=== PATIENT | female | born 1965 | race Caucasian/White ===

== ENCOUNTER 2017-03-16 11:58 | Inpatient (IN) | payer OTHER ==
[~2017-03-16] VITALS: Ht 160 cm; Wt 80.0 kg
[~2017-03-16 11:58] MED LIST: CLON1TAB3 PO; DIME240C2 PO; IBUP-1542 PO
[2017-03-16] MEDS ORDERED: SOD CHLORIDE 0.9% 500 ML IV STA (12:28)
[2017-03-16 13:35] LABS: ABNORMAL IP MESSAGE 1; HEMATOCRIT 23.8 % (37.0-47.0); MEAN CORPUSCULAR HEMOGLOBIN 18.7 pg (29.0-33.0); MEAN CORPUSCULAR HGB CONC 27.7 g/dl (32.0-37.0); MEAN CORPUSCULAR VOLUME 67.4 fl (82.0-101.0); MEAN PLATELET VOLUME 10.5 fl (7.4-10.4); PLATELET COUNT 464 10^3/UL (140-415); RED BLOOD COUNT 3.53 10^6/ul (4.20-5.40); WHITE BLOOD COUNT 6.7 10^3/ul (4.8-10.8)
[2017-03-16 13:47] LABS: HEMOGLOBIN 6.6 g/dl (12.0-16.0); POSITIVE DIFF @See below
[2017-03-16 13:49] LABS: INR 1.13; PROTIME 14.5 Sec (12.2-14.2); PT RATIO 1.1
[2017-03-16 13:50] LABS: PARTIAL THROMBOPLASTIN TIME 28.5 Sec (25.0-35.0)
--- NOTE | 2017-03-16 13:52 | RADRPT ---
PROCEDURE: XR Chest. CLINICAL INDICATION: Dyspnea . Upper GI bleed. TECHNIQUE: Single frontal chest x-ray. COMPARISON: None. FINDINGS: The lungs are clear of acute infiltrates, edema, effusions, or masses.. The cardiomediastinal silho uette is unremarkable. The osseous structures are intact. IMPRESSION: No acute cardiopulmonary disease. RPTAT: GG .Ren Talbert MD, Date Time Electronically viewed and signed by .Ren Talbert MD, on 03/16/2017 13:51 .L/
[2017-03-16 13:55] LABS: ALANINE AMINOTRANSFERASE 25 IU/L (13-69); ALBUMIN 4.2 g/dl (3.3-4.9); ALBUMIN/GLOBULIN RATIO 1.31; ALKALINE PHOSPHATASE 41 IU/L (42-121); ANION GAP 12 (8-16); ASPARTATE AMINO TRANSFERASE 12 IU/L (15-46); BLOOD UREA NITROGEN 20 mg/dl (7-20); CARBON DIOXIDE 25 mmol/L (21-31); CHLORIDE 108 mmol/L (97-110); CREATININE 0.65 mg/dl (0.44-1.00); GLUCOSE 125 mg/dl (70-220); POTASSIUM 3.9 mmol/L (3.5-5.1); SODIUM 141 mmol/L (135-144); TOTAL PROTEIN 7.4 g/dl (6.1-8.1)
[2017-03-16] MEDS ORDERED: APIX5TAB PO (13:56)
[2017-03-16 14:08] LABS: TROPONIN-I < 0.012 ng/ml (0.00-0.12)
--- NOTE | 2017-03-16 14:15 | ERD ---
ER Documentation Chief Complaint Date/Time DATE: 03/16/17 TIME: 14:12 Chief Complaint sent from MD for eval abnormal labs Hx of MS HPI 51-year-old woman referred here by PMD for anemia, blood work taken last week revealed hemoglobin just under 7. Patient states she has had melena intermittently for the last 1-2 weeks but denies previous episodes. She denies abdominal pain, no hematemesis, no fevers or chills, no chest pain or shortness of breath, no loss of consciousness. Patient has a history of multiple sclerosis and has upper and lower extremity paresis and has been unable to ambulate for a few years. ROS All systems reviewed and are negative except as per history of present illness. Medications Home Meds Reported Medications Apixaban* (Eliquis*) 5 Mg Tablet, 5 MG PO BID, TAB 03/16/17 Ibuprofen* (Motrin*) 600 Mg Tab, 600 MG PO BID Y for PAIN, TAB 01/13/16 Clonazepam* (Clonazepam*) 1 Mg Tablet, 1 MG PO TID Y for ANXIETY, TAB 01/13/16 Dimethyl Fumarate (Tecfidera) 240 Mg Capsule.dr, 240 MG PO BID, CAP 01/13/16 Allergies Allergies: Coded Allergies: No Known Allergy (Unverified , 03/16/17) PMhx/Soc Multiple sclerosis with bilateral upper and lower extremity paresis, bedbound state, functional paralysis, seizure disorder, history of kidney stone, cholelithiasis, fibroid, anemia History of Surgery: No Anesthesia Reaction: No Hx Neurological Disorder: Yes (MS) Hx Respiratory Disorders: No Hx Cardiac Disorders: No Hx Psychiatric Problems: No Hx Miscellaneous Medical Probl: Yes (MS x 7 years, seizure, KIDNEY STONES ) Hx Alcohol Use: No Hx Substance Use: No Hx Tobacco Use: No Smoking Status: Never smoker FmHx Family History: No diabetes Physical Exam Vitals Vital Signs Date Time Temp Pulse Resp B/P Pulse Ox O2 Delivery O2 Flow Rate FiO2 03/16/17 12:11 99.4 94 20 105/58 100 Physical Exam GENERAL: Well-developed, well-nourished, dehydrated, afebrile HEENT: Dry mucous membranes, pink conjunctiva, no cervical spine tenderness or step-off deformities, no goiter, no jaundice or icterus, extraocular movements intact without pain. No submandibular induration, and no pharyngeal erythema NEURO: Alert and oriented 3, cranial nerves II through XII intact bilaterally, pupils equal round reactive to light, no focal deficits or facial asymmetry, bilateral upper and lower extremity paresis CARDIAC: Regular rate and rhythm, no murmurs rubs or gallops LUNGS: Clear bilaterally no wheezing crackles or stridor ABDOMEN: Soft nontender, no guarding, no rigidity, no rebound, no psoas sign no obturator sign. Normoactive bowel sounds SKIN: Warm and dry to touch, no abrasions, contusions, or hematomas, no lacerations, no ecchymosis, no target lesions, and without ulcers EXTREMITIES: No clubbing cyanosis or edema, diffuse muscular flaccidity and wasting (early stages) PSYCH: Normal affect without agitation or irritability Result Diagram: 03/16/17 1312 03/16/17 1312 Results 24 hrs Laboratory Tests Test 03/16/17 13:12 White Blood Count 6.710^3/ul Red Blood Count 3.5310^6/ul Hemoglobin 6.6g/dl Hematocrit 23.8% Mean Corpuscular Volume 67.4fl Mean Corpuscular Hemoglobin 18.7pg Mean Corpuscular Hemoglobin Concent 27.7g/dl Red Cell Distribution Width 17.0% Platelet Count 57511^3/UL Mean Platelet Volume 10.5fl Neutrophils % % Segmented Neutrophils % (Manual) 73% Lymphocytes % % Lymphocytes % (Manual) 19% Monocytes % % Monocytes % (Manual) 5% Eosinophils % % Eosinophils % (Manual) 3% Basophils % % Nucleated Red Blood Cells % 0.0/100WBC Neutrophils # 10^3/ul Absolute Lymphocytes (Manual) 1.210^3/ul Lymphocytes # 10^3/ul Monocytes # 10^3/ul Absolute Monocytes (Manual) 0.310^3/ul Eosinophils # 10^3/ul Basophils # 10^3/ul Nucleated Red Blood Cells # 10^3/ul Platelet Estimate NORMAL Polychromasia 3+ Hypochromasia 2+ Poikilocytosis 1+ Anisocytosis 2+ Microcytosis 2+ Prothrombin Time 14.5Sec Prothrombin Time Ratio 1.1 INR International Normalized Ratio 1.13 Activated Partial Thromboplast Time 28.5Sec Sodium Level 141mmol/L Potassium Level 3.9mmol/L Chloride Level 108mmol/L Carbon Dioxide Level 25mmol/L Anion Gap 12 Blood Urea Nitrogen 20mg/dl Creatinine 0.65mg/dl Glucose Level 125mg/dl Calcium Level 9.0mg/dl Total Bilirubin 0.0mg/dl Direct Bilirubin 0.00mg/dl Indirect Bilirubin 0.0mg/dl Aspartate Amino Transf (AST/SGOT) 12IU/L Alanine Aminotransferase (ALT/SGPT) 25IU/L Alkaline Phosphatase 41IU/L Troponin I < 0.012ng/ml Total Protein 7.4g/dl Albumin 4.2g/dl Globulin 3.20g/dl Albumin/Globulin Ratio 1.31 Lipase 72U/L Current Medications Medications (Trade) Dose Ordered Sig/Coretta Route PRN Reason Start Time Stop Time Status Last Admin Dose Admin Sodium Chloride (NS) 500 ml @ 500 mls/hr Q1H STAT IV 03/16/17 12:28 03/16/17 13:27 DC 03/16/17 12:28 Procedures/MDM IV line was established patient was placed on residential monitor rhythm strip revealed a sinus rhythm at about 80 bpm with upright P and T waves. Patient was afebrile. EKG performed, read by me: 86 bpm, normal sinus rhythm, normal axis, no acute ST segment changes, narrow QRS complex, with good R-wave progression in precordial leads. I administered 500 cc normal saline intravenously for dehydration. CBC revealed anemia with hemoglobin of 6.6, electrolytes are unremarkable, liver function tests normal, troponin was negative, coagulation profile was normal. Transfusion 2 units PRBCs IV over 4 hours was administered for anemia. Patient admitted to [facility] for continued medical management and IV transfusion Departure Diagnosis: Primary Impression: Symptomatic anemia Additional Impressions: Multiple sclerosis Functional neurological symptom disorder with weakness or paralysis Gastritis and gastroduodenitis with hemorrhage Condition: ANURAG Collado MD Mar 16, 2017 14:15
[2017-03-16 14:32] LABS: ANISOCYTOSIS 2+ (0-0); EOSINOPHILS % (M) 3 % (0-7); HYPOCHROMASIA 2+ (0-0); MICROCYTOSIS 2+ (0-0); MONOCYTES % (M) 5 % (0-11); PLATELET ESTIMATE NORMAL; POIKILOCYTOSIS 1+ (0-0); POLYCHROMASIA 3+ (0-0)
[2017-03-16 17:11] VITALS: TEMP 98.4
[2017-03-16 17:34] VITALS: BP 103/52; RESP 18
[2017-03-16 19:36] VITALS: BP 113/57; RESP 20
[2017-03-16] MEDS ORDERED: PENDING SANTYL ORDER FOR WOUND CARE XX PRN (20:00)
[2017-03-16] MEDS ORDERED: clonAZEPAM 0.5 MG TAB PO PRN (21:30)
[2017-03-16] MEDS ORDERED: IBUPROFEN 600 MG TAB PO PRN (21:30)
[2017-03-16 23:12] VITALS: Ht 160 cm; Wt 80.0 kg
[2017-03-17 00:40] LABS: ADD UMIC NO; UR ASCORBIC ACID NEGATIVE (NEGATIVE); UR BILIRUBIN (Dip) NEGATIVE (NEGATIVE); UR BLOOD (Dip) NEGATIVE (NEGATIVE); UR CLARITY CLEAR (CLEAR); UR COLOR YELLOW (YELLOW); UR GLUCOSE (Dip) NEGATIVE (NEGATIVE); UR KETONES (Dip) NEGATIVE (NEGATIVE); UR LEUKOCYTE ESTERASE (Dip) NEGATIVE Leu/ul (NEGATIVE); UR NITRITE (Dip) NEGATIVE (NEGATIVE); UR SPECIFIC GRAVITY (Dip) 1.019 (1.003-1.030); UR TOTAL PROTEIN (Dip) NEGATIVE (NEGATIVE); UR UROBILINOGEN (Dip) NEGATIVE (NEGATIVE)
[2017-03-17 01:21] VITALS: BP 99/57; RESP 20
--- NOTE | 2017-03-17 05:26 | HP ---
Date/Time of Note Date/Time of Note DATE: 03/17/17 TIME: 05:17 Assessment/Plan VTE Prophylaxis VTE Prophylaxis Intervention: SCD's Lines/Catheters [facility] Saline Lock Urinary Cath still in place: No Assessment/Plan Assessment/Plan 1. GI bleed, most likely upper -PPI -GI consult -Will obviously hold her Eliquis and ibuprofen 2. Severe microcytic anemia, secondary to above -Patient has been started on a blood transfusion in the ER -will check iron profile and ferritin even though not going to be accurate given she is already getting blood transfusion -Check FOBT -GI consult 3. Lower extremity DVT, diagnosed in 2016 -Hold Eliquis given GI bleed and anemia -Will order lower extremity venous study to evaluate for resolution or persistence of DVT -Given the patient has been pretty much none ambulatory from her severe MS, and now with GI bleed and a severe anemia, I believe she benefits from placement of IVC filter since she is at risk for future DVT and now inability to be placed on anticoagulation 4. Multiple sclerosis -Continue Tecfidera -Physical therapy eval HPI/ROS Admit Date/Time Admit Date/Time Mar 16, 2017 at 16:11 Hx of Present Illness This is a 51-year-old female with a history of multiple sclerosis, asthma, lower extremity DVT diagnosed in 2016 who was brought to the ER after she was told she has low hemoglobin. Labs from a few days ago showed a hemoglobin of 7 and as such as she was told to come to ER. She said for almost 2 weeks she has been noticing melanotic stools. She denied hematemesis. She is on Eliquis for DVT and that she has been taking ibuprofen as needed for pain. She has severe MS and she pretty much has been bedridden. PMH/Family/Social Social History Smoking Status: Never smoker Exam/Review of Systems Vital Signs Vitals Vital Signs Date Time Temp Pulse Resp B/P Pulse Ox O2 Delivery O2 Flow Rate FiO2 03/17/17 01:21 98.1 89 20 99/57 98 03/16/17 17:11 Room Air Intake and Output 03/16/17 03/16/17 03/17/17 15:00 23:00 07:00 Intake Total 700 ml Balance 700 ml Exam Constitutional: alert, oriented Head: atraumatic, normocephalic Eyes: PERRL Respiratory: clear to auscultation, normal air movement Cardiovascular: nl pulses, regular rate and rhythm Gastrointestinal: non-tender, soft Extremities: normal pulses Neurological: other (Upper and lower extremity weakness) Labs Result Diagram: 03/16/17 1312 03/16/17 1312 Medications Medications Current Medications [facility]isc[facility] This patient booth... PRN PRN XX WOUND CARE; Start 03/16/17 at 20:00 Influenza Virus Vaccine (Fluzone) 0.5 ml ONCE ONCE IM* ; Start 03/17/17 at 09:00 ; Stop 03/17/17 at 09:01 Clonazepam (Klonopin) 1 mg TID PRN PO ANXIETY; Start 03/16/17 at 21:30 Ibuprofen (Motrin) 600 mg Q6H PRN PO FOR PAIN; Start 03/16/17 at 21:30 Non-Formulary Medication 1 ea BID PO ; Start 03/17/17 at 09:00; Status UNV Apixaban (Eliquis) 5 mg BID PO ; Start 03/17/17 at 09:00 CLEO FARRIS MD Mar 17, 2017 05:26
[2017-03-17] MEDS ORDERED: ACETAMINOPHEN 325 MG TAB PO PRN (05:30)
[2017-03-17 06:01] LABS: BASOPHILS % 0.4 % (0.0-2.0); EOSINOPHILS # 0.2 10^3/ul (0.0-0.5); EOSINOPHILS % 2.5 % (0.0-7.0); HEMOGLOBIN 9.2 g/dl (12.0-16.0); LYMPHOCYTES # 1.3 10^3/ul (0.8-2.9); LYMPHOCYTES % 19.2 % (15.0-51.0); MEAN CORPUSCULAR HEMOGLOBIN 22.4 pg (29.0-33.0); MEAN CORPUSCULAR HGB CONC 30.7 g/dl (32.0-37.0); MEAN PLATELET VOLUME 10.2 fl (7.4-10.4); MONOCYTE # 0.8 10^3/ul (0.3-0.9); MONOCYTES % 11.1 % (0.0-11.0); NEUTROPHIL # 4.5 10^3/ul (1.6-7.5); NEUTROPHILS % 66.4 % (39.0-77.0); PLATELET COUNT 362 10^3/UL (140-415); RED BLOOD COUNT 4.11 10^6/ul (4.20-5.40); RED CELL DISTRIBUTION WIDTH 20.7 % (11.5-14.5); WHITE BLOOD COUNT 6.8 10^3/ul (4.8-10.8)
[2017-03-17 06:18] LABS: IRON 103 ug/dl (35-150)
[2017-03-17 06:25] LABS: ALBUMIN 3.2 g/dl (3.3-4.9); BILIRUBIN,INDIRECT 0.4 mg/dl (0-1.1); BILIRUBIN,TOTAL 0.4 mg/dl (0.2-1.3); CALCIUM 8.6 mg/dl (8.4-10.2); CREATININE 0.54 mg/dl (0.44-1.00); POTASSIUM 3.8 mmol/L (3.5-5.1); TOTAL PROTEIN 6.4 g/dl (6.1-8.1)
[2017-03-17 06:27] LABS: TOTAL IRON BINDING CAPACITY 316 ug/dl (241-421)
[2017-03-17 06:55] LABS: FERRITIN 4.8 ng/ml (6.2-137.0)
[2017-03-17 08:00] VITALS: BP 114/67; RESP 18
[2017-03-17] MEDS ORDERED: INFLUENZA VIRUS VACCINE 0.5 ML SYG IM* ONE (09:00)
[2017-03-17] MEDS ORDERED: APIXABAN 5 MG TABLET PO SCH (09:00)
--- NOTE | 2017-03-17 13:38 | PN ---
Date/Time of Note Date/Time of Note DATE: 03/17/17 TIME: 13:32 Assessment/Plan VTE Prophylaxis VTE Prophylaxis Intervention: contraindicated Lines/Catheters [facility] Saline Lock Urinary Cath still in place: No Assessment/Plan Chief Complaint/Hosp Course Assessment and plan 1. Anemia secondary to suspect GI bleed. Continue PPI medication. Napper Fixer was consulted. Patient was initially on Eliquis for her previous lower extremity DVT diagnosed in 2016. Will place this on hold for now. Follow up with urologist md recs 2. Severe microcytic anemia secondary to #1. Patient status post blood transfusion. H&H remained stable at present. Napper Fixer to follow. Monitor level. 3. Lower extremity DVT diagnosed in 2016. Patient was initially on Eliquis but given her anemia we will hold this for now. Will get vascular surgeon to follow for consideration of possible IVC filter placement. 4. History of multiple sclerosis. Will continue patient on Tecfidera medication. Turn every 2 and as needed for decubitus ulcer prevention. Disposition plan: Awaiting health management consultant evaluation. Continue house monitoring. Monitor serial H&H. Discussed plan of care with Dr. Mena Problems: Subjective 24 Hr Interval Summary Free Text/Dictation Report the pain at this time. No other specific complaints. Exam/Review of Systems Vital Signs Vitals Vital Signs Date Time Temp Pulse Resp B/P Pulse Ox O2 Delivery O2 Flow Rate FiO2 03/17/17 08:00 98.6 74 18 114/67 03/17/17 01:21 98 03/16/17 17:11 Room Air Intake and Output 03/16/17 03/16/17 03/17/17 15:00 23:00 07:00 Intake Total 1700 ml Balance 1700 ml Exam Constitutional: alert, oriented Psych: nl mood/affect Head: normocephalic Respiratory: normal air movement Cardiovascular: regular rate and rhythm Gastrointestinal: non-tender, soft Musculoskeletal: No nl gait and stance (hx multiple sclerosis ) Neurological: nl mental status, nl speech, No COUNTER SERVER II-XII intact Results Result Diagram: 03/17/17 0543 03/17/17 0543 Results 24 hrs Laboratory Tests Test 03/16/17 21:00 03/17/17 05:43 Urine Color YELLOW Urine Clarity CLEAR Urine pH 6.0 Urine Specific [place] 1.019 Urine Ketones NEGATIVE Urine Nitrite NEGATIVE Urine Bilirubin NEGATIVE Urine Urobilinogen NEGATIVE Urine Leukocyte Esterase NEGATIVE Urine Hemoglobin NEGATIVE Urine Glucose NEGATIVE Urine Total Protein NEGATIVE White Blood Count 6.8 Red Blood Count 4.11 L Hemoglobin 9.2 #L Hematocrit 30.0 #L Mean Corpuscular Volume 73.0 L Mean Corpuscular Hemoglobin 22.4 L Mean Corpuscular Hemoglobin Concent 30.7 L Red Cell Distribution Width 20.7 #H Platelet Count 362 # Mean Platelet Volume 10.2 Neutrophils % 66.4 Lymphocytes % 19.2 Monocytes % 11.1 H Eosinophils % 2.5 Basophils % 0.4 Nucleated Red Blood Cells % 0.0 Neutrophils # 4.5 Lymphocytes # 1.3 Monocytes # 0.8 Eosinophils # 0.2 Basophils # 0.0 Nucleated Red Blood Cells # 0.0 Sodium Level 139 Potassium Level 3.8 Chloride Level 110 Carbon Dioxide Level 23 Anion Gap 10 Blood Urea Nitrogen 23 H Creatinine 0.54 Glucose Level 112 Calcium Level 8.6 Iron Level 103 Total Iron Binding Capacity 316 Percent Iron Saturation 33 Ferritin 4.8 L Total Bilirubin 0.4 Direct Bilirubin 0.00 Indirect Bilirubin 0.4 Aspartate Amino Transf (AST/SGOT) 14 L Alanine Aminotransferase (ALT/SGPT) 21 Alkaline Phosphatase 38 L Total Protein 6.4 # Albumin 3.2 #L Globulin 3.20 Albumin/Globulin Ratio 1.00 Medications Medications Current Medications Miscellaneous Information (Pending [facility] Order For Wound Care) This patient booth... PRN PRN XX WOUND CARE; Start 03/16/17 at 20:00 Clonazepam (Klonopin) 1 mg TID PRN PO ANXIETY; Start 03/16/17 at 21:30 Patient Own Medication 1 ea BID PO ; Start 03/17/17 at 21:00 Acetaminophen (Tylenol Tab) 650 mg Q6H PRN PO PAIN AND OR ELEVATED TEMP; Start 03/17/17 at 05:30 BROOKE STEINBERG Mar 17, 2017 13:38
[2017-03-17 14:00] VITALS: BP 113/56; RESP 18
[2017-03-17 20:00] VITALS: BP 120/64; RESP 20
[2017-03-17] MEDS: TECFIDERA 240 MG PO SCH (20:52)
[2017-03-18 02:00] VITALS: BP 91/53; RESP 18
[2017-03-18 06:57] LABS: BASOPHILS % 0.3 % (0.0-2.0); EOSINOPHILS # 0.2 10^3/ul (0.0-0.5); EOSINOPHILS % 2.2 % (0.0-7.0); HEMATOCRIT 30.4 % (37.0-47.0); HEMOGLOBIN 9.5 g/dl (12.0-16.0); LYMPHOCYTES # 1.5 10^3/ul (0.8-2.9); LYMPHOCYTES % 16.3 % (15.0-51.0); MEAN CORPUSCULAR HEMOGLOBIN 22.4 pg (29.0-33.0); MEAN CORPUSCULAR HGB CONC 31.3 g/dl (32.0-37.0); MEAN CORPUSCULAR VOLUME 71.7 fl (82.0-101.0); MONOCYTE # 0.9 10^3/ul (0.3-0.9); MONOCYTES % 9.6 % (0.0-11.0); NEUTROPHIL # 6.3 10^3/ul (1.6-7.5); NEUTROPHILS % 71.3 % (39.0-77.0); PLATELET COUNT 409 10^3/UL (140-415); RED BLOOD COUNT 4.24 10^6/ul (4.20-5.40); RED CELL DISTRIBUTION WIDTH 21.1 % (11.5-14.5); WHITE BLOOD COUNT 8.9 10^3/ul (4.8-10.8)
[2017-03-18 07:26] VITALS: BP 95/51; RESP 20
[2017-03-18 07:39] LABS: CALCIUM 8.7 mg/dl (8.4-10.2); CREATININE 0.51 mg/dl (0.44-1.00); POTASSIUM 3.8 mmol/L (3.5-5.1)
[2017-03-18] MEDS: TECFIDERA 240 MG PO SCH ×2 (08:41→20:58)
--- NOTE | 2017-03-18 12:28 | CONS ---
Date/Time of Note Date/Time of Note DATE: 03/18/17 TIME: 12:22 Assessment/Plan Assessment/Plan Additional Assessment/Plan REASON FOR CONSULTATION (CONS): Anemia HISTORY OF PRESENT ILLNESS 51-year-old female recently diagnosed multiple sclerosis. She was being evaluated at [facility] for initiation of treatment. She was found to have significant anemia. She was referred to her primary doctor who subsequently referred her for hospitalization. From the GI point of view the patient denies any evidence of overt gastrointestinal bleeding i.e. hematemesis, melena or hematochezia. The patient also have very heavy periods in the last 3 months. She had been receiving Eliquis for DVT. At the present time the patient is asymptomatic from the gastrointestinal point of view but has required blood transfusions and given the potential need for anticoagulation as well as her age group she will require benefit from endoscopic evaluation. The patient patient will be scheduled for EGD and colonoscopy. The procedures were explained to the patient in detail including risks, benefits and alternatives. She is agreeable to proceed. REVIEW OF SYSTEMS: []GASTROINTESTINAL AND LIVER: Negative for: Anorexia, dysphagia, odynophagia, pyrosis, regurgitation, nausea, vomiting, early satiety, bloating, abdominal pain, food intolerance, diarrhea, constipation, change in Bowel Habits, laxative use, hematemesis, melena, hematochezia, anorectal symptoms, incontinence, jaundice. GENERAL AND CONSTITUTIONAL: Negative for: Weakness, tiredness, fever, chills, weight loss, weight gain, skin lesions. New mass, adenopathy. HEENT: Negative for: Headaches, vision changes, icterus, hearing loss, dizziness , vertigo, earache, sore throat. CARDIOVASCULAR: Negative for: Chest pain, SOB, CUMMINGS, orthopnea, palpitations, lightheadedness, edemas, claudication. RESPIRATORY: Negative for: SOB, cough, sputum production, hemoptysis, pleuritic chest pain, wheezing. GENITOURINARY: Negative for: Dysuria, hematuria, flank pain, urgency, nocturia, polyuria. MUSCULO-SKELETAL: Negative for: Bone pain, arthralgias, deformity, myalgias. HEMATOLOGIC-LYMPHATIC: Negative for: Echymosis, petechia, excessive bleeding, adenopathy, new mass. NEURO-PSYCHIATRIC: Positive for: Weakness. Negative for: Syncope, seizures, numbness, depression, anxiety, insomnia, hallucinations, delusions. [GYNECOLOGICAL: Positive for menorrhagia. Negative for: irregular menses, dysmenorrheal, dyspareunia] PAST MEDICAL HISTORY: MEDICAL: Multiple sclerosis DVT 2016 SURGICAL: [None] TRANSFUSIONS: This hospitalization TATOOS: [None] HABITS: SMOKING: [Negative] ALCOHOL: [Negative] DRUGS: [Negative] MEDICATION HISTORY: [As noted] ALLERGIES: [No known allergies] FAMILY HISTORY: [Negative for gastrointestinal neoplasm, non contributory] PHYSICAL EXAMINATION: GENERAL: Well developed, well nourished, alert & oriented x 3, in no acute distress SKIN: No lesions, no stigmata chronic liver disease, no evidence of bleeding diathesis LYMPHATIC: No palpable lymphadenopathy. HEAD: Normocephalic, atraumatic, no tenderness. EYES: Pupils equal reactive to light and accommodation, full extraocular movements, sclera clear, non-icteric, no discharge. EARS/NOSE AND THROAT: Ears normal, nose normal, oropharynx normal, oral membranes well hydrated without lesions. NECK: Supple, no masses, thyroid normal, JVP within normal limits, carotids normal without bruits. CHEST: Inspection within normal limits, breasts grossly normal. CARDIOVASCULAR: Heart: Regular rate and rhythm, no murmurs, gallops or rubs. Peripheral pulses present within normal limits, no cyanosis, clubbing or edemas. No pulsatile abdominal mass RESPIRATORY: Lungs clear to auscultation and percussion, no wheezing, no rubs GASTROINTESTINAL AND LIVER: Abdomen: Soft, non tender, non-distended, no hernias , no masses, no organomegaly, no ascites, no guarding, no rebound tenderness, normoactive bowel sounds. Rectal: Deferred GENITOURINARY: [Female genitalia within normal limits.] EXTREMITIES: No cyanosis, clubbing or edema. MUSCULO-SKELETAL: Gait and station within normal limits, range of motion adequate. IMPRESSION: Severe unexplained anemia/while anticoagulated Rule out GI bleeding Menometrorrhagia Multiple sclerosis History of DVT 2016/on Eliquis DISCUSSION & RECOMMENDATIONS: We will proceed with EGD and colonoscopy to rule out GI component to her significant anemia Consider DOT COMPLIANCE MANAGER evaluation for menometrorrhagia Further recommendations pending patient's clinical course as well as findings SIMON canales. Dr. Dumont's [facility] Consultation Date/Type/Reason Admit Date/Time Mar 16, 2017 at 16:11 Psychological: nl mood/affect Social History Smoking Status: Never smoker Exam/Review of Systems Vital Signs Vitals Vital Signs Date Time Temp Pulse Resp B/P Pulse Ox O2 Delivery O2 Flow Rate FiO2 03/18/17 07:26 98.4 78 20 95/51 98 03/16/17 17:11 Room Air Intake and Output 03/17/17 03/17/17 03/18/17 15:00 23:00 07:00 Intake Total 1200 ml 720 ml Balance 1200 ml 720 ml Results Result Diagram: 03/18/17 0514 03/18/17 0514 Results 24 hrs Laboratory Tests Test 03/18/17 05:14 03/18/17 05:58 White Blood Count 8.9 # Red Blood Count 4.24 Hemoglobin 9.5 L Hematocrit 30.4 L Mean Corpuscular Volume 71.7 L Mean Corpuscular Hemoglobin 22.4 L Mean Corpuscular Hemoglobin Concent 31.3 L Red Cell Distribution Width 21.1 H Platelet Count 409 Mean Platelet Volume 11.0 H Neutrophils % 71.3 Lymphocytes % 16.3 Monocytes % 9.6 Eosinophils % 2.2 Basophils % 0.3 Nucleated Red Blood Cells % 0.0 Neutrophils # 6.3 Lymphocytes # 1.5 Monocytes # 0.9 Eosinophils # 0.2 Basophils # 0.0 Nucleated Red Blood Cells # 0.0 Sodium Level 135 Potassium Level 3.8 Chloride Level 106 Carbon Dioxide Level 22 Anion Gap 11 Blood Urea Nitrogen 22 H Creatinine 0.51 Glucose Level 99 Calcium Level 8.7 Lab Scanned Report BLOOD TRANSFUSION Medications Medications Current Medications Miscellaneous Information (Pending [facility] Order For Wound Care) This patient booth... PRN PRN XX WOUND CARE; Start 03/16/17 at 20:00 Clonazepam (Klonopin) 1 mg TID PRN PO ANXIETY Last administered on 03/18/17 08 :51; Admin Dose 1 MG; Start 03/16/17 at 21:30 Patient Own Medication 1 ea BID PO Last administered on 03/18/17 08:41; Admin Dose 1 EA; Start 03/17/17 at 21:00 Acetaminophen (Tylenol Tab) 650 mg Q6H PRN PO PAIN AND OR ELEVATED TEMP; Start 03/17/17 at 05:30 SIMON DUMONT MD Mar 18, 2017 12:28
[2017-03-18] MEDS ORDERED: BISACODYL (EC) 5 MG TAB PO ONE (12:30)
--- NOTE | 2017-03-18 12:56 | PN ---
Date/Time of Note Date/Time of Note DATE: 03/18/17 TIME: 12:54 Assessment/Plan VTE Prophylaxis VTE Prophylaxis Intervention: SCD's Lines/Catheters [facility] Saline Lock Urinary Cath still in place: No Assessment/Plan Chief Complaint/Hosp Course Assessment and plan 1. Anemia secondary to suspect GI bleed. Continue PPI medication. Patient was initially on Eliquis for her previous lower extremity DVT diagnosed in 2016. Will place this on hold for now. GI following. Plan for colonoscopy and EGD . 2. Severe microcytic anemia secondary to #1. Patient status post blood transfusion. H&H remained stable at present. Iron Erector following. Monitor level. 3. Lower extremity DVT diagnosed in 2016. Patient was initially on Eliquis but given her anemia we will hold this for now. vascular surgeon to follow for consideration of possible IVC filter placement. 4. History of multiple sclerosis. Will continue patient on Tecfidera medication. Turn every 2 and as needed for decubitus ulcer prevention. Disposition plan: Plan for EGD and colonoscopy. Vascular surgeon evaluation pending. Continue in-house monitoring Discussed plan of care with Dr. Mena Problems: Subjective 24 Hr Interval Summary Free Text/Dictation No signs or symptoms of distress at this time. No further reports of hematemesis or hematochezia Exam/Review of Systems Vital Signs Vitals Vital Signs Date Time Temp Pulse Resp B/P Pulse Ox O2 Delivery O2 Flow Rate FiO2 03/18/17 07:26 98.4 78 20 95/51 98 03/16/17 17:11 Room Air Intake and Output 03/17/17 03/17/17 03/18/17 15:00 23:00 07:00 Intake Total 1200 ml 720 ml Balance 1200 ml 720 ml Exam Constitutional: alert, oriented Psych: nl mood/affect Head: normocephalic Respiratory: normal air movement Cardiovascular: regular rate and rhythm Gastrointestinal: non-tender, soft Musculoskeletal: No nl gait and stance (hx multiple sclerosis ) Neurological: nl mental status, nl speech, No TANK CAR INSPECTOR II-XII intact Results Result Diagram: 03/18/17 0514 03/18/17 0514 Results 24 hrs Laboratory Tests Test 03/18/17 05:14 03/18/17 05:58 White Blood Count 8.9 # Red Blood Count 4.24 Hemoglobin 9.5 L Hematocrit 30.4 L Mean Corpuscular Volume 71.7 L Mean Corpuscular Hemoglobin 22.4 L Mean Corpuscular Hemoglobin Concent 31.3 L Red Cell Distribution Width 21.1 H Platelet Count 409 Mean Platelet Volume 11.0 H Neutrophils % 71.3 Lymphocytes % 16.3 Monocytes % 9.6 Eosinophils % 2.2 Basophils % 0.3 Nucleated Red Blood Cells % 0.0 Neutrophils # 6.3 Lymphocytes # 1.5 Monocytes # 0.9 Eosinophils # 0.2 Basophils # 0.0 Nucleated Red Blood Cells # 0.0 Sodium Level 135 Potassium Level 3.8 Chloride Level 106 Carbon Dioxide Level 22 Anion Gap 11 Blood Urea Nitrogen 22 H Creatinine 0.51 Glucose Level 99 Calcium Level 8.7 Lab Scanned Report BLOOD TRANSFUSION Medications Medications Current Medications Miscellaneous Information (Pending [facility] Order For Wound Care) This patient booth... PRN PRN XX WOUND CARE; Start 03/16/17 at 20:00 Clonazepam (Klonopin) 1 mg TID PRN PO ANXIETY Last administered on 03/18/17 08 :51; Admin Dose 1 MG; Start 03/16/17 at 21:30 Patient Own Medication 1 ea BID PO Last administered on 03/18/17 08:41; Admin Dose 1 EA; Start 03/17/17 at 21:00 Acetaminophen (Tylenol Tab) 650 mg Q6H PRN PO PAIN AND OR ELEVATED TEMP; Start 03/17/17 at 05:30 Magnesium Citrate (Citroma) 300 ml ONCE ONCE PO ; Start 03/18/17 at 17:30; Stop 03/18/17 at 17:31 Polyethylene Glycol (Miralax) 119 gm ONCE ONCE PO ; Start 03/18/17 at 18:30; Stop 03/18/17 at 18:31 BROOKE STEINBERG Mar 18, 2017 12:56
[2017-03-18 13:02] VITALS: BP 110/57; RESP 20
[2017-03-18] MEDS ORDERED: MAGNESIUM CITRATE 300 ML BTL PO ONE (17:30)
[2017-03-18] MEDS ORDERED: POLYETHYLENE GLYCOL 3350 119 GM POWDER PO ONE (18:30)
[2017-03-18 19:40] VITALS: BP 119/65; RESP 20
[2017-03-19 02:00] VITALS: BP 112/59; RESP 20
[2017-03-19] MEDS ORDERED: POLYETHYLENE GLYCOL 3350 119 GM POWDER PO ONE (06:00)
[2017-03-19 06:24] LABS: ABNORMAL IP MESSAGE 1; BASOPHILS % 0.3 % (0.0-2.0); EOSINOPHILS # 0.2 10^3/ul (0.0-0.5); EOSINOPHILS % 1.5 % (0.0-7.0); HEMATOCRIT 33.7 % (37.0-47.0); LYMPHOCYTES # 1.2 10^3/ul (0.8-2.9); LYMPHOCYTES % 10.8 % (15.0-51.0); MEAN CORPUSCULAR HEMOGLOBIN 21.6 pg (29.0-33.0); MEAN CORPUSCULAR HGB CONC 29.7 g/dl (32.0-37.0); MEAN CORPUSCULAR VOLUME 72.9 fl (82.0-101.0); MEAN PLATELET VOLUME 10.3 fl (7.4-10.4); MONOCYTES % 8.9 % (0.0-11.0); NEUTROPHIL # 8.5 10^3/ul (1.6-7.5); PLATELET COUNT 414 10^3/UL (140-415); RED BLOOD COUNT 4.62 10^6/ul (4.20-5.40); RED CELL DISTRIBUTION WIDTH 22.5 % (11.5-14.5)
[2017-03-19 06:34] LABS: POSITIVE DIFF @See below
[2017-03-19 07:16] LABS: CALCIUM 9.2 mg/dl (8.4-10.2); CREATININE 0.5 mg/dl (0.44-1.00)
[2017-03-19 07:58] VITALS: BP 125/68; RESP 20
[2017-03-19] MEDS ORDERED: BISACODYL (EC) 5 MG TAB PO ONE (08:00)
[2017-03-19] MEDS: TECFIDERA 240 MG PO SCH ×2 (08:46→21:08)
--- NOTE | 2017-03-19 10:13 | PN ---
Date/Time of Note Date/Time of Note DATE: 03/19/17 TIME: 10:12 Assessment/Plan VTE Prophylaxis VTE Prophylaxis Intervention: contraindicated Lines/Catheters IV Catheter Type (from [facility] Urinary Cath still in place: No Assessment/Plan Chief Complaint/Hosp Course 1. Symptomatic anemia. Microcytic and hypochromic rule out gastrointestinal sources. Stool for OB 1 negative. Iron panel showing low ferritin levels. Start iron supplements. Continue proton pump inhibitors. Being followed by gastroenterology. Plan for esophagogastroduodenoscopy and colonoscopy. 2. Prior history of lower extremity DVT with details unclear. The patient has been on factor Xa inhibitors. Currently this is on hold because of underlying anemia. The patient was evaluated by vascular surgeon. Repeat venous Doppler of B/L LE pending. 3. Multiple sclerosis. Continue patient's home medications. Continue supportive care. 4. Fluids, electrolytes, and nutrition. N.p.o. except for medications for procedure. 5. DVT prophylaxis. Contraindicated. 6. Plan. Await esophagogastroduodenoscopy and colonoscopy. Case discussed with Dr. Velázquez. Problems: Subjective 24 Hr Interval Summary Free Text/Dictation Denies any complaints. Exam/Review of Systems Vital Signs Vitals Vital Signs Date Time Temp Pulse Resp B/P Pulse Ox O2 Delivery O2 Flow Rate FiO2 03/19/17 07:58 98.1 77 20 125/68 100 03/16/17 17:11 Room Air Intake and Output 03/18/17 03/18/17 03/19/17 15:00 23:00 07:00 Intake Total 1140 ml 360 ml Output Total 0 ml Balance 1140 ml 360 ml Exam General: Adequately build 51 year-old female lying in bed in no apparent distress. HEENT: Normocephalic, atraumatic. Eyes: Anicteric sclerae, conjunctivae clear. ENT: Nasal septum midline, oral mucosa moist. Neck supple, no JVD noticed. Respiratory: Bilaterally clear breath sounds. No use of accessory muscles of respiration. No adventitious breath sounds. Cardiovascular: S1, S2 heard. No murmurs or gallops. Abdomen: Soft, nontender, and nondistended. Bowel sounds positive in all 4 quadrants. Genitourinary: Deferred. Extremities: No cyanosis, no clubbing, no edema. Peripheral pulses palpable. Neurologic: The patient is awake, alert, and oriented. Skin: Normal skin turgor. No skin rashes. Results Result Diagram: 03/19/1714 03/19/1714 Results 24 hrs Laboratory Tests Test 03/19/17 05:14 White Blood Count 11.0 #H Red Blood Count 4.62 Hemoglobin 10.0 L Hematocrit 33.7 L Mean Corpuscular Volume 72.9 L Mean Corpuscular Hemoglobin 21.6 L Mean Corpuscular Hemoglobin Concent 29.7 L Red Cell Distribution Width 22.5 H Platelet Count 414 Mean Platelet Volume 10.3 Neutrophils % 78.0 H Lymphocytes % 10.8 L Monocytes % 8.9 Eosinophils % 1.5 Basophils % 0.3 Nucleated Red Blood Cells % 0.0 Neutrophils # 8.5 H Lymphocytes # 1.2 Monocytes # 1.0 H Eosinophils # 0.2 Basophils # 0.0 Nucleated Red Blood Cells # 0.0 Sodium Level 139 Potassium Level 4.0 Chloride Level 105 Carbon Dioxide Level 26 Anion Gap 12 Blood Urea Nitrogen 19 Creatinine 0.50 Glucose Level 110 Calcium Level 9.2 Medications Medications Current Medications Miscellaneous Information ([facility] This patient booth... PRN PRN XX WOUND CARE; Start 03/16/17 at 20:00 Clonazepam (Klonopin) 1 mg TID PRN PO ANXIETY Last administered on 03/18/17 08 :51; Admin Dose 1 MG; Start 03/16/17 at 21:30 Patient Own Medication 1 ea BID PO Last administered on 03/18/17 20:58; Admin Dose 1 EA; Start 03/17/17 at 21:00 Acetaminophen (Tylenol Tab) 650 mg Q6H PRN PO PAIN AND OR ELEVATED TEMP Last administered on 03/19/17 02:05; Admin Dose 650 MG; Start 03/17/17 at 05:30 JACK FRIEND NP Mar 19, 2017 10:13
[2017-03-19] MEDS: FERROUS FUMARATE (SR) TAB PO SCH ×2 (12:00→21:07)
[2017-03-19 13:10] VITALS: BP 109/53; RESP 20
--- NOTE | 2017-03-19 15:44 | RADRPT ---
PROCEDURE: US Lower extremity Venous. CLINICAL INDICATION: Bilateral lower extremity edema TECHNIQUE: Multiple sonographic images of the bilateral lower extremity deep venous system was obt ained utilizing grayscale, color-flow, compressive sonography and doppler imaging with augmentation. The images were reviewed on a PACS workstation. COMPARISON: None. FINDINGS: There is normal compressibility and flow within the bilateral common femoral, femoral , posterior ti bial and popliteal veins. RPTAT: AA IMPRESSION: No sonographic evidence for deep venous thrombosis. .Feliciano Kellogg MD, MD Date Time Electronically viewed and signed by .Feliciano Kellogg MD, on 03/19/2017 15:43 .S/
[2017-03-19 16:31] VITALS: BP 104/55; PULSE 82; RESP 24
[2017-03-19] MEDS ORDERED: PROPOFOL 40 ML ONE (17:05)
[2017-03-19] MEDS ORDERED: LIDOCAINE 2% (SDV) 5 ML INJ ONE (17:05)
[2017-03-19] MEDS ORDERED: PHENYLephrine (100 MCG/ML) 5ML SYG ONE (17:20)
--- NOTE | 2017-03-19 17:51 | OPPN ---
Date/Time of Note Date/Time of Note DATE: 03/19/17 TIME: 17:48 Proc Note GI Procedure Date 03/19/17 Pre-procedure Diagnosis * Anemia Post-procedure Diagnosis Impression: * Moderate gastritis. Rule out H. pylori infection. Biopsies obtained * Small hiatal hernia. No evidence of esophagitis. * Otherwise normal EGD Plan: * Protonix 40 mg daily * Review pathology * Proceed with colonoscopy as planned . Procedure Performed: Endoscopy (Plus biopsies) Surgeon SIMON JEFFERSON MD Laborer Powerhouse none Anesthesia Type: MAC Anesthesiologist: ODIN OBRIEN Tourniquet Time none EBL none Transfusion required none Biopsy 1: Gastric body and antrum/rule out H. pylori infection Grafts/Implants none Tubes/Drains none Complication(s) none Pt Condition post procedure: stable Disposition: PACU Indications: other (Anemia) Procedure Description After informed consent, with the patient/relatives understanding the procedure, its indications, potential risks and complications, including but not limited to : allergic reaction, bleeding, perforation or infection, and after all pertinent questions were answered to the patients satisfaction, the patient/ relatives signed witnessed informed consent. Following this, premedication was administered slowly IV push under careful cardiovascular and respiratory monitoring with pulse oximetry, automatic blood pressure, and nuclear power plant engineer. Once the sedative effect was achieved the patient was place in the left lateral decubitus, the panendoscope was introduced and advanced under visual control. Careful examination of the upper gastrointestinal tract, both on insertion as well as withdrawal of the instrument disclosing the following findings: ESOPHAGUS: the mucosa of the entire esophagus was carefully examined and showed the following findings: There is a small hiatal hernia with no evidence of esophagitis. Otherwise the mucosa appears within normal limits. There is no evidence of esophagitis, varices, neoplasm, or stricture. STOMACH: Upon entrance to the stomach air was insufflated, the gastric ross distended normally. The mucosa of the fundus, body and antrum of the stomach was carefully examined both head-on and on retroflexion, and showed the following findings: There is moderate erythema and edema of the mucosa of the body and antrum of the stomach. Biopsies were obtained to rule out H. pylori infection. Otherwise the mucosa appears within normal limits with no abnormalities. There is no evidence of ulcers or neoplasm. PYLORUS: The pylorus was carefully examined and showed the following findings: the pylorus appears patent and within normal limits, with no evidence of gastric outlet obstruction. DUODENUM: The duodenal mucosa was carefully examined in the duodenal bulb as well as the second portion of the duodenum and showed the following findings: the mucosa appears unremarkable with no evidence of duodenitis, ulcer or neoplasm. Copies To: CC: SIMON JEFFERSON MD, MORDO MD Mar 19, 2017 17:51
--- NOTE | 2017-03-19 17:53 | OPPN ---
Date/Time of Note Date/Time of Note DATE: 03/19/17 TIME: 17:51 Proc Note GI Procedure Date 03/19/17 Pre-procedure Diagnosis * Anemia Post-procedure Diagnosis Impression: * Normal colonic mucosa to cecum * Moderate-sized internal hemorrhoids Plan: * Advance diet as tolerated * Annual Hemoccult stool testing * Screening colonoscopy in 10 years Procedure Performed: Colonoscopy Surgeon SIMON JEFFERSON MD Director Fundraising none Anesthesia Type: MAC Anesthesiologist: ODIN OBRIEN Tourniquet Time none EBL none Transfusion required none Biopsy 1: None Grafts/Implants none Tubes/Drains none Complication(s) none Pt Condition post procedure: stable Disposition: PACU Indications: screening/surveillance, other (Anemia) Procedure Description Procedure Date: [] After informed consent, with the patient/relatives understanding the procedure, its indications and potential risks and complications, including but not limited to: Allergic reaction, bleeding, perforation, infection, and after all pertinent questions were answered to the patient's satisfaction, the patient/ relatives signed the witnessed informed consent. Following this, premedication was administered slowly IV push under careful cardiovascular and respiratory monitoring with pulse OXIMETRY, automatic blood pressure, and patient monitor. Once the sedative effect was achieved, the patient was placed in the left lateral decubitus position, digital rectal examination was performed. The colonoscope was then introduced and advanced under visual control throughout all segments of the colon including: []the rectum, sigmoid, descending colon, splenic flexure, transverse colon, hepatic flexure, ascending colon and finally reaching the cecum which was clearly identified by transillumination, finger indentation and the ileocecal valve. Careful examination of the mucosa of the lower gastrointestinal tract both on insertion as well as withdrawal of the instrument disclosed the following findings: PREPARATION QUALITY: , [fair, procedure completed] RECTAL EXAM: The anorectal area was visualized examined and digital rectal examination performed with the following findings: No evidence of perirectal disease, no masses. COLONIC MUCOSA: The mucosa of all segments of the colon was carefully examined and showed the following findings: the examined mucosa appears within normal limits. There is no evidence of inflammatory changes, diverticular formation, polyps or other neoplasms, vascular malformation, or any other abnormality. Moderate-sized internal hemorrhoids present. The instrument was then withdrawn, the patient tolerated the procedure well and was transferred out of the Endoscopy Suite awake and in good condition to continue recovery under observation. Copies To: CC: SIMON JEFFERSON MD, MORDO MD Mar 19, 2017 17:53
[2017-03-19 19:46] VITALS: BP 121/76; RESP 20
[2017-03-19] MEDS ORDERED: LOPERAMIDE 2 MG CAP PO PRN (23:00)
[2017-03-20 02:00] VITALS: BP 112/59; RESP 20
[2017-03-20] MEDS ORDERED: PANTOPRAZOLE (EC) 40 MG TAB PO SCH (06:00)
[2017-03-20 06:12] LABS: ABNORMAL IP MESSAGE 1; BASOPHILS % 0.3 % (0.0-2.0); EOSINOPHILS # 0.2 10^3/ul (0.0-0.5); EOSINOPHILS % 1.7 % (0.0-7.0); HEMATOCRIT 31.6 % (37.0-47.0); HEMOGLOBIN 9.6 g/dl (12.0-16.0); LYMPHOCYTES # 1.1 10^3/ul (0.8-2.9); LYMPHOCYTES % 12.2 % (15.0-51.0); MEAN CORPUSCULAR HEMOGLOBIN 22.3 pg (29.0-33.0); MEAN CORPUSCULAR HGB CONC 30.4 g/dl (32.0-37.0); MEAN CORPUSCULAR VOLUME 73.5 fl (82.0-101.0); MEAN PLATELET VOLUME 10.4 fl (7.4-10.4); MONOCYTE # 0.8 10^3/ul (0.3-0.9); MONOCYTES % 8.3 % (0.0-11.0); NEUTROPHIL # 7.2 10^3/ul (1.6-7.5); NEUTROPHILS % 77.3 % (39.0-77.0); PLATELET COUNT 379 10^3/UL (140-415); WHITE BLOOD COUNT 9.3 10^3/ul (4.8-10.8)
[2017-03-20 06:21] LABS: POSITIVE DIFF @See below
[2017-03-20 06:37] LABS: MAGNESIUM 1.9 mg/dl (1.7-2.5)
[2017-03-20 06:41] LABS: CALCIUM 8.9 mg/dl (8.4-10.2); CREATININE 0.61 mg/dl (0.44-1.00)
[2017-03-20 07:28] VITALS: BP 99/59; RESP 20
[2017-03-20] MEDS: FERROUS FUMARATE (SR) TAB PO SCH (08:59)
[2017-03-20] MEDS: TECFIDERA 240 MG PO SCH (08:59)
[2017-03-20 13:31] VITALS: BP 105/58; RESP 20
[2017-03-20] MEDS ORDERED: COLLAGENASE 30 GM TUBE TOP SCH (14:30)
--- NOTE | 2017-03-20 14:41 | PDOCDIS ---
Discharge Instructions DIAGNOSIS Discharge Diagnosis Anemia. Gastritis. CONDITION Patient Condition: Stable HOME CARE INSTRUCTIONS: Diet Instructions: Regular FOLLOW UP/APPOINTMENTS Follow-up Plan Rene Merritt MD Specialty: Internal Medicine Office Address: [address] [place], [place] [id number] Office OTHER ORDERS: Other Orders: 1. Take medications as per prescription. Avoid taking Eliquis, aspirin or NSAIDs. 2. Follow-up with your neurologist as scheduled. 3. Follow-up with your primary care physician 1 week. If you do not have a primary care physician, please call Dr. Rene Merritt's office. JACK FRIEND NP Mar 20, 2017 14:41
[2017-03-20] MEDS ORDERED: PANT40TA4 PO (14:42)
[2017-03-20] MEDS ORDERED: FERR1TAB14 PO (14:42)
--- NOTE | 2017-03-20 14:59 | DS ---
Date/Time of Note Date/Time of Note DATE: 03/20/17 TIME: 14:57 Discharge Summary Admission/Discharge Info Admit Date/Time Mar 16, 2017 at 16:11 Discharge Date/Time Discharge Diagnosis 1. Microcytic, hypochromic anemia. Probably a combination of underlying iron deficiency and acute blood loss. 2. Moderate gastritis. 3. Prior history of left lower extremity DVT. No evidence of DVT. 4. Multiple sclerosis. 5. Decubitus ulcer. 6. Chronic bedridden status. Patient Condition: Stable Consults 1. Bayron Dumont MD, Gastroenterology. Procedures Esophagogastroduodenoscopy Post-procedure Diagnosis Impression: * Moderate gastritis. Rule out H. pylori infection. Biopsies obtained * Small hiatal hernia. No evidence of esophagitis. * Otherwise normal EGD Colonoscopy Post-procedure Diagnosis Impression: * Normal colonic mucosa to cecum * Moderate-sized internal hemorrhoids Hx of Present Illness This is a 51-year-old female with a history of multiple sclerosis, asthma, lower extremity DVT diagnosed in 2016 who was brought to the ER after she was told she has low hemoglobin. Labs from a few days ago showed a hemoglobin of 7 and as such as she was told to come to ER. She said for almost 2 weeks she has been noticing melanotic stools. She denied hematemesis. She is on Eliquis for DVT and that she has been taking ibuprofen as needed for pain. She has severe MS and she pretty much has been bedridden. Hospital Course The patient was admitted to inpatient setting. The patient was started on proton pump inhibitors. A gastroenterology consult was obtained. The patient' s Eliquis was put on hold. The patient underwent an esophagogastroduodenoscopy that showed moderate gastritis and small hiatal hernia. Gastroenterology recommended proton pump inhibitor therapy. The patient currently has no any active DVT. Therefore will hold the anticoagulation in the setting of significant anemia. The patient is chronically bedridden and has high risk for venous thromboembolism. However, the patient needs to address the need for further anticoagulation after the acute episode of anemia is treated with proton pump inhibitor therapy and holding the factor Xa inhibitor. The patient received a total of 2 units of PRBC transfusion during this admission. The patient was also noticed to have iron deficiency with low ferritin levels. Hence the patient was started on iron supplements. Initially, there was a tentative plan for IVC filter placement because of the patient's left lower extremity DVT and the need for anticoagulation. However, the patient's bilateral lower extremity venous Doppler study was negative for any DVT. Hence the plan for IVC filter placement was aborted since the patient has no active DVT. The patient has underlying multiple sclerosis. She was mainatained on dimethyl fumarate for the same. The patient has underlying sacral area decubitus ulcer. The patient was followed up with local wound care. Case management order was put in for home health to evaluate the patient for further wound care as outpatient. The patient had a stable hospital course. The patient's H&H remained stable. The patient had no more episodes of melena. Discharge Instructions 1. Take medications as per prescription. Avoid taking Eliquis, aspirin or NSAIDs. 2. Follow-up with your neurologist as scheduled. 3. Follow-up with your primary care physician 1 week. If you do not have a primary care physician, please call Dr. Rene Merritt's office. The patient verbalized understanding of her discharge instructions. At this time I would like to thank for seeing the patient, doing the necessary procedures, and providing clinical recommendations. Case discussed with Dr. Velázquez. Home Meds Active Scripts Pantoprazole* (Pantoprazole*) 40 Mg Tablet., 40 MG PO DAILY@06, #30 TAB-CAP Prov:JACK FRIEND NP 03/20/17 Ferrous Fumarate/Ascorbic Acid (Kailey-Sequels 65-25 mg Caplet) 1 Each Tablet.er , 1 TAB PO BID, #60 TAB Prov:JACK FRIEND COIN COUNTER AND WRAPPER 03/20/17 Reported Medications Clonazepam* (Clonazepam*) 1 Mg Tablet, 1 MG PO TID Y for ANXIETY, TAB 01/13/16 Dimethyl Fumarate (Tecfidera) 240 Mg Capsule., 240 MG PO BID, CAP 01/13/16 Discontinued Reported Medications Apixaban* (Eliquis*) 5 Mg Tablet, 5 MG PO BID, TAB 03/16/17 Ibuprofen* (Motrin*) 600 Mg Tab, 600 MG PO BID Y for PAIN, TAB 01/13/16 Follow-up Plan Follow-up with neurologist as scheduled. Follow-up with PMD in 1 week. Primary Care Provider Mena Hayden Time spent on discharge: > 30 minutes Pending Labs Laboratory Tests Test 10/3/17 05:34 White Blood Count 9.310^3/ul (4.8-10.8) Red Blood Count 4.3010^6/ul (4.20-5.40) Hemoglobin 9.6g/dl (12.0-16.0) Hematocrit 31.6% (37.0-47.0) Mean Corpuscular Volume 73.5fl (82.0-101.0) Mean Corpuscular Hemoglobin 22.3pg (29.0-33.0) Mean Corpuscular Hemoglobin Concent 30.4g/dl (32.0-37.0) Red Cell Distribution Width 23.0% (11.5-14.5) Platelet Count 82017^3/UL (140-415) Mean Platelet Volume 10.4fl (7.4-10.4) Neutrophils % 77.3% (39.0-77.0) Lymphocytes % 12.2% (15.0-51.0) Monocytes % 8.3% (0.0-11.0) Eosinophils % 1.7% (0.0-7.0) Basophils % 0.3% (0.0-2.0) Nucleated Red Blood Cells % 0.0/100WBC (0.0-0.0) Neutrophils # 7.210^3/ul (1.6-7.5) Lymphocytes # 1.110^3/ul (0.8-2.9) Monocytes # 0.810^3/ul (0.3-0.9) Eosinophils # 0.210^3/ul (0.0-0.5) Basophils # 0.010^3/ul (0.0-0.1) Nucleated Red Blood Cells # 0.010^3/ul (0.0-0.0) Sodium Level 139mmol/L (135-144) Potassium Level 4.0mmol/L (3.5-5.1) Chloride Level 107mmol/L (97-110) Carbon Dioxide Level 24mmol/L (21-31) Anion Gap 12 (8-16) Blood Urea Nitrogen 29mg/dl (7-20) Creatinine 0.61mg/dl (0.44-1.00) Glucose Level 111mg/dl (70-220) Calcium Level 8.9mg/dl (8.4-10.2) Phosphorus Level 5.0mg/dl (2.5-4.9) Magnesium Level 1.9mg/dl (1.7-2.5) JACK FRIEND NP Mar 20, 2017 14:59
== END 2017-03-20 18:00 | disposition home health service (06) | DRG 811 ==
LOC: E/R 11:58 → MS2 16:11
PROVIDERS: ADMIT Internal Medicine; ATTEND Internal Medicine
PROC: 30233N1 Transfusion of Nonautologous Red Blood Cells into Peripheral Vein, Percutaneous Approach (ICD-10-PCS; 2017-03-16)
PROC: 0DB68ZX Excision of Stomach, Via Natural or Artificial Opening Endoscopic, Diagnostic (ICD-10-PCS; principal; 2017-03-19 18:30)
PROC: 0DJD8ZZ Inspection of Lower Intestinal Tract, Via Natural or Artificial Opening Endoscopic (ICD-10-PCS; 2017-03-19 18:30)
DX: D62 Acute posthemorrhagic anemia (principal); L89.153 Pressure ulcer of sacral region, stage 3; G83.89 Other specified paralytic syndromes; K92.1 Melena; K29.70 Gastritis, unspecified, without bleeding; K44.9 Diaphragmatic hernia without obstruction or gangrene; N92.1 Excessive and frequent menstruation with irregular cycle; K64.8 Other hemorrhoids; Z74.01 Bed confinement status; G35 Multiple sclerosis; G40.909 Epilepsy, unspecified, not intractable, without status epilepticus; Z86.718 Personal history of other venous thrombosis and embolism; Z79.01 Long term (current) use of anticoagulants
CPT/HCPCS: 36430; 71010; 80048; 80053; 81003; 82270; 82728; 83540; 83690; 83735; 84100; 84484; 85025; 85610; 85730; 86850; 86900; 86901; 86920; 88305; 88312; 90686; 93005; 93970; 97161; J2370; J7040; P9016

== ENCOUNTER 2018-01-07 20:39 | Emergency (ER) | END 2018-01-08 01:24 | disposition short-term general hospital (02) ==

== ENCOUNTER 2018-05-04 19:34 | Emergency (ER) | END 2018-05-04 23:21 | disposition home or self-care (01) ==

== ENCOUNTER 2018-09-11 21:48 | Inpatient (IN) | payer OTHER ==
[~2018-09-11] VITALS: Ht 157.5 cm; Wt 72.7 kg
[~2018-09-11 21:48] MED LIST changes: +APIX2.5T PO; +CLON1TAB13 PO; -CLON1TAB3 PO; -IBUP-1542 PO
[2018-09-11 21:54] VITALS: Ht 157.5 cm; Wt 72.7 kg
[2018-09-11] MEDS ORDERED: APIX2.5T PO (22:51)
[2018-09-11] MEDS ORDERED: PANT40TA4 PO (22:52)
[2018-09-11] MEDS ORDERED: DIME240C2 PO (22:52)
[2018-09-11] MEDS ORDERED: CLON1TAB13 PO (22:52)
[2018-09-11] MEDS ORDERED: IBUP-1542 PO (22:53)
[2018-09-11] MEDS ORDERED: KETOROLAC 15 MG INJ IV STA (23:01)
--- NOTE | 2018-09-11 23:19 | ERD ---
ER Documentation Chief Complaint Chief Complaint abdominal pain on and off x 4 days. hx of ms HPI This is a 53-year-old female with a past medical history of multiple sclerosis, anxiety, GERD, on Eliquis who is presenting with 4 days of waxing and waning right-sided cramping aching sharp abdominal pain. The patient also reports ri ght sided chest pain radiating to the back, exacerbated by movement and palpation and breathing. She does not endorse any trauma or injury. She has not had any nausea or vomiting. The patient does not endorse any changes to bowel movements or urination. She has not had any constipation or diarrhea. She has not had any black or bloody or tarry stools. She has not had any dysuria or hematuria or urgency or frequency. She does not endorse ever having any abdominal surgeries. The patient denies feeling sick recently. The patient denies fever or chills. The patient has had no headache or vision changes. The patient does not endorse neck or back pain. The patient denies lightheadedness or dizziness. The patient has had no focal deficits. The patient has had no weakness or numbness or tingling to the face or extremities. ROS All systems reviewed and are negative except as per history of present illness. Medications Home Meds Reported Medications Ibuprofen* (Ibuprofen*) 600 Mg Tablet, 600 MG PO NEEDED PRN for PAIN, TAB 09/11/18 Pantoprazole* (Pantoprazole*) 40 Mg Tablet.dr, 40 MG PO AC BREAKFAST, TAB 09/11/18 Dimethyl Fumarate (Tecfidera) 240 Mg Capsule.dr, 240 MG PO BID, CAP 09/11/18 Clonazepam* (Clonazepam*) 1 Mg Tablet, 1 MG PO BID PRN for ANXIETY, TAB 09/11/18 Apixaban* (Eliquis*) 2.5 Mg Tablet, 2.5 MG PO BID, TAB 09/11/18 Discontinued Reported Medications Apixaban* (Eliquis*) 2.5 Mg Tablet, 2.5 MG PO BID, TAB 01/07/18 Clonazepam* (Clonazepam*) 1 Mg Tablet, 1 MG PO TID PRN for ANXIETY, TAB 01/13/16 Dimethyl Fumarate (Tecfidera) 240 Mg Capsule.dr, 240 MG PO BID, CAP 01/13/16 Allergies Allergies: Coded Allergies: No Known Allergy (Unverified , 09/11/18) PMhx/Soc History of Surgery: No Anesthesia Reaction: No Hx Neurological Disorder: No Hx Respiratory Disorders: Yes (Asthma) Hx Cardiac Disorders: Yes (Anemia) Hx Psychiatric Problems: No Hx Miscellaneous Medical Probl: Yes (Multiple sclerosis, GERD) Hx Alcohol Use: No Hx Substance Use: No Hx Tobacco Use: No FmHx Family History: No diabetes Physical Exam Vitals Vital Signs Date Temp Pulse Resp B/P (MAP) Pulse Ox O2 O2 Flow FiO2 Time Delivery Rate 09/12/18 94 18 107/67 100 Room Air 02:00 (80) 09/12/18 98.7 91 18 104/55 100 Room Air 00:00 (71) 09/11/18 98.9 94 18 113/61 100 Room Air 22:00 (78) 09/11/18 99.2 103 18 116/57 100 21:54 (76) Physical Exam Const: No apparent distress, well-developed, well-nourished Head: Normocephalic, Atraumatic Eyes: Normal Conjunctiva. Extraocular movements intact. Pupils equal, round and reactive to light ENT: Normal External Ears, Nose and Mouth. Neck: Full range of motion. No meningismus. Resp: Clear to auscultation bilaterally, No wheezes, rales or rhonchi Cardio: Regular rate and rhythm. No murmurs, rubs or gallops Abd: Soft, non distended. Nonspecific right-sided abdominal tenderness. No rebound or guarding. Normal bowel sounds Skin: No petechiae or rashes Back: No midline tenderness. No CVA tenderness Ext: No cyanosis, or edema Neur: Awake and alert, oriented 4. Cranial nerves intact. No facial droop. Normal sensation. Chronic progressive quadriplegia related to multiple sclerosis. Psych: Normal Mood and Affect Result Diagram: 09/11/18 2349 09/11/18 2220 Results 24 hrs Laboratory Tests Test 09/11/18 22:20 09/11/18 23:45 09/12/18 00:30 09/12/18 01:10 Prothrombin Time 14.1 Sec Prothrombin Time 1.1 Ratio INR 1.08 International Normalized Ratio D-Dimer 833.28 ng/ml D-Dimer Comment Sodium Level 138 mmol/L Potassium Level 4.0 mmol/L Chloride Level 103 mmol/L Carbon Dioxide 22 mmol/L Level Anion Gap 13 Blood Urea 10 mg/dl Nitrogen Creatinine 0.47 mg/dl Est Glomerular > 60 mL/min Filtrat Rate mL/min Glucose Level 219 mg/dl Calcium Level 9.4 mg/dl Total Bilirubin 0.2 mg/dl Direct Bilirubin 0.00 mg/dl Indirect 0.2 mg/dl Bilirubin Aspartate Amino 36 IU/L Transf (AST/SGOT ) Alanine 17 IU/L Aminotransferase (ALT/SGPT) Alkaline 75 IU/L Phosphatase Troponin I < 0.012 ng/ml Total Protein 8.0 g/dl Albumin 4.1 g/dl Globulin 3.90 g/dl Albumin/Globulin 1.05 Ratio Lipase 56 U/L White Blood 19.7 10^3/ul Count Red Blood Count 3.55 10^6/ul Hemoglobin 7.2 g/dl Hematocrit 25.3 % Mean Corpuscular 71.3 fl Volume Mean Corpuscular 20.3 pg Hemoglobin Mean Corpuscular 28.5 g/dl Hemoglobin Sanna nt Red Cell 16.8 % Distribution Width Platelet Count 588 10^3/UL Mean Platelet 9.9 fl Volume Immature 0.900 % Granulocytes % Neutrophils % 81.1 % Lymphocytes % 8.6 % Monocytes % 8.4 % Eosinophils % 0.8 % Basophils % 0.2 % Nucleated Red 0.2 /100WBC Blood Cells % Immature 0.180 10^3/ul Granulocytes # Neutrophils # 16.0 10^3/ul Lymphocytes # 1.7 10^3/ul Monocytes # 1.7 10^3/ul Eosinophils # 0.2 10^3/ul Basophils # 0.0 10^3/ul Nucleated Red 0.0 10^3/ul Blood Cells # Urine Color OLIVIER Urine Clarity CLOUDY Urine pH 5.0 Urine Specific 1.015 [place] Urine Ketones TRACE mg/dL Urine Nitrite NEGATIVE mg/dL Urine Bilirubin NEGATIVE mg/dL Urine NEGATIVE mg/dL Urobilinogen Urine Leukocyte TRACE Parveen/ul Esterase Urine 0 /HPF Microscopic RBC Urine 14 /HPF Microscopic WBC Urine Squamous FEW /HPF Epithelial Cells Urine Bacteria FEW /HPF Urine Hemoglobin NEGATIVE mg/dL Urine Glucose NEGATIVE mg/dL Urine Total NEGATIVE mg/dl Protein Serum HCG, NEGATIVE Qualitative Current Medications Medications Dose Sig/[place] Start Time Status Last (Trade) Ordered Route PRN Stop Time Admin Dose Reason Admin Ketorolac 15 mg ONCE STAT 09/11/18 DC 09/11/18 Tromethamine IV 23:01 23:38 (Toradol) 09/11/18 23:02 Sodium 100 ml @ ud STK-MED 09/12/18 DC 09/12/18 Chloride ONCE .ROUTE 00:32 00:32 09/12/18 00:33 Iohexol 150 ml STK-MED 09/12/18 DC 09/12/18 (Omnipaque ONCE .ROUTE 00:32 00:32 300mg/ ml) 09/12/18 00:33 Morphine 4 mg ONCE STAT 09/12/18 DC 09/12/18 Sulfate IV 03:50 04:03 (morphine) 09/12/18 03:55 Vancomycin 250 ml @ ONCE ONCE 09/12/18 09/12/18 HCl 125 mls/hr IVPB 04:00 04:03 09/12/18 05:59 Cefepime HCl 50 ml @ ONCE ONCE 09/12/18 DC 09/12/18 100 mls/hr IVPB 04:00 04:03 09/12/18 04:29 Ondansetron 4 mg ONCE STAT 09/12/18 DC 09/12/18 HCl (Zofran IV 03:50 04:03 Inj) 09/12/18 03:55 Sodium 1,000 ml @ Q1H ONCE 09/12/18 09/12/18 Chloride 1,000 mls/hr IV 04:00 04:05 09/12/18 04:59 Procedures/MDM MDM The patient's presentation warrants further investigation. Previous medical records, if available, were reviewed. LABS The patient's laboratory testing was obtained and reviewed. No emergent treatment was required unless described below. CBC: Leukocytosis with shift, concerning for an infectious etiology. Microcytic anemia, nonemergent. Leukocytosis, reactive. Chemistry: No E/o severe acidosis or alkalosis or renal failure or liver disease or diabetic ketoacidosis Lipase: No E/o pancreatitis Coags: INR unremarkable. D-dimer is elevated. Troponin: No E/o acute ischemia Urine: E/o acute infection without hematuria EKG EKG read by me: Rate/Rhythm: Regular rate and rhythm at a rate of 94 bpm Intervals: Normal [place]: Normal Impression: No evidence of acute ischemia or arrhythmia IMAGING Imaging and Radiology interpretation reviewed. CXR FINDINGS: The cardiac silhouette is within normal limits. The aortic arch is unremarkable. There is patchy infiltrate within the right lower lobe. There is no vascular congestion or pleural effusion. There is no pneumothorax. IMPRESSION: Right lower lobe infiltrate. Electronically viewed and signed by .Mina Correa MD, on 09/12/2018 01:09 CTA Chest FINDINGS: PULMONARY ARTERIES: Evaluation for pulmonary embolus is limited by poor contrast bolus and breathing motion artifact. No gross central embolus is seen. AORTA: No definite acute abnormality. No thoracic aortic aneurysm. LUNGS: There is a large slightly heterogeneous area of consolidation medially in the right middle lobe which measures 4.3 x 4.4 cm. A calcification is seen at the periphery of the abnormality. No other large area of consolidation is seen. Compressive atelectasis of the right lung base and dependent atelectasis of the left lung. PLEURAL SPACE: Moderate right pleural effusion. No left pleural effusion. No pneumothorax. HEART: Cardiomegaly. Trace pericardial fluid. No evidence of RV dysfunction. BONES/JOINTS: Mild degenerative change of the spine and shoulders. Small sclerotic lesion of the right humeral head which may represent a bone island. SOFT TISSUES: There is an oval 2 cm structure medially in the left breast which most likely represents a cyst. Correlation with mammography is suggested, however. LYMPH NODES: 8 mm right hilar node. Sub centimeter axillary and mediastinal nodes. GALLBLADDER AND BILE DUCTS: Slightly distended gallbladder. OTHER FINDINGS: IMPRESSION: 1. Large rounded area of heterogeneous consolidation medially in the right middle lobe with slightly enlarged right hilar node and small right pleural effusion. This may represent an area of rounded configuration pneumonia, postobstructive change, or possibly a mass. Follow up imaging after treatment to document resolution is suggested. 2. No definite pulmonary embolus. No aortic dissection or aneurysm. Study limited by poor contrast bolus and breathing motion artifact. 3. There is an oval 2 cm structure medially in the left breast which most likely represents a cyst. Correlation with mammography is suggested, however. Electronically viewed and signed by Physician Fredy on 09/12/2018 03:27 CT Abd/Pelvis FINDINGS: LUNG BASES: The rounded abnormality in the right middle lobe on this more delayed study shows septated low attenuation centrally measuring 2.6 x 2.8 cm. T his is concerning for either abscess/liquefied contents within an area of pneumonia or possibly a necrotic mass. If indicated, CT guided aspiration may be helpful/diagnostic. Right pleural effusion and bibasilar atelectasis again seen. ABDOMEN: LIVER: Unremarkable No mass. GALLBLADDER AND BILE DUCTS: Slightly distended gallbladder without visible stones. No biliary ductal dilatation is seen. PANCREAS: Unremarkable No mass. No ductal dilation. SPLEEN: Unremarkable No splenomegaly. ADRENALS: Unremarkable No mass. KIDNEYS AND URETERS: Unremarkable No solid mass. No hydronephrosis. STOMACH AND BOWEL: Moderate stool burden. No evidence for small bowel obstruction, free air, or abscess. PELVIS: APPENDIX: Normal appendix. BLADDER: A small amount of air is seen in the urinary bladder. There is contrast dependently in the urinary bladder, limiting evaluation for stones. No visible mass. REPRODUCTIVE: Heterogeneous uterus with multiple hypodense masses most likely representing fibroids. Multiple probable bilateral ovarian follicles. ABDOMEN and PELVIS: INTRAPERITONEAL SPACE: See above. BONES/JOINTS: Mild degenerative change of the spine. Small probable bone island of the left ischial tuberosity SOFT TISSUES: 2 cm probable cyst is seen in the medial left breast. As suggested on the chest CT report, correlation with mammography/breast ultrasound is suggested. Small fat-containing umbilical hernia. VASCULATURE: Unremarkable No abdominal aortic aneurysm. LYMPH NODES: Unremarkable No enlarged lymph nodes. OTHER FINDINGS: IMPRESSION: 1. The rounded abnormality in the right middle lobe on this more delayed study shows septated low attenuation centrally measuring 2.6 x 2.8 cm. This is concerning for either abscess/liquefied contents within an area of pneumonia or possibly a necrotic mass. If indicated, CT guided aspiration may be helpful/diagnostic. Right pleural effusion and bibasilar atelectasis again seen. 2. 2 cm probable cyst is seen in the medial left breast. As suggested on the chest CT report, correlation with mammography/breast ultrasound is suggested. Electronically viewed and signed by Lizzie Mann Physician on 09/12/2018 03:37 US RUQ FINDINGS: The liver demonstrates normal echogenicity and size measuring 16.7 cm. There is no focal mass or intrahepatic biliary ductal dilatation. The portal v ein is patent. The gallbladder is not distended. Multiple echogenic gallstones are identified. There is no pericholecystic fluid or gallbladder wall thickening. The common bile duct measures 3.2 mm in maximal dimension. The pancreas is partially obscured by overlying bowel gas. No free fluid is identified. The right kidney is normal size and echogenicity measuring 10.4 cm. There is no focal renal mass or echogenic calculus identified. There is no obstructive uropathy. IMPRESSION: Cholelithiasis without ultrasound evidence of cholecystitis. Pancreas partially obscured by overlying bowel gas. Electronically viewed and signed by .Mina Correa MD, MD on 09/12/2018 00:23 TREATMENT/DISPOSITION The patient presented for right-sided abdominal and chest pain. The patient was fully evaluated. The patient does have evidence of cholelithiasis, and biliary colic is certainly a possibility. That said, I do not see evidence of cholecystitis. The patient does right lower quadrant tenderness, but there is no evidence of appendicitis on the CT scan. The patient did also endorse suprapu bic tenderness. Her urinalysis is concerning for the possibility of a urinary tract infection which will require treatment. The patient does not have any epigastric pain. I have low suspicion for gastritis, PUD or GERD. The patient does not have left upper quadrant tenderness. I have low suspicion for pancreatitis. The patient does not have any left lower quadrant tenderness, and I have low suspicion for diverticulosis or diverticulitis. The patient does not have any flank tenderness. The patient does not have gross hematuria. I have decreased suspicion for nephrolithiasis or renal colic. The patient does not have any palpable pulsatile mass or severe abdominal pain radiating to the back. I have low suspicion for aortic aneurysm, dissection or rupture. The patient does not have any evidence of peritonitis. The patient does not have clinical symptoms concerning for mesenteric ischemia or ischemic colitis. The patient's chest x-ray is concerning for pneumonia. The patient CT scan reveals a possible abscess versus liquefied necrosis within an area of pneumonia in the right middle lobe. There is also concern of a possible necrotic mass related to a malignant process. CT-guided aspiration may be considered in the hospital. The patient does also have a right-sided pleural effusion, which appears to be chronic in nature. Given the patient's leukocytosis, I do suspect this to be the etiology of her symptoms at this time. Despite the leukocytosis, the patient's vital signs are unremarkable. The patient does not meet criteria for a systemic inflammatory response, and I do not feel the patient requires a full septic workup. The patient was given antibiotics in the emergency department. The patient's troponin and EKG are reassuring. I have low suspicion for acute coronary syndrome. The patient's chest xray does not reveal pneumothorax or pulmonary edema. The patient does not have a widened mediastinum and does not have signs or symptoms concerning for thoracic aortic aneurysm or dissection. The patient does not have pneumomediastinum or signs concerning for esophageal tear or rupture. The patient has no clinical or radiographic signs of pericardial effusion or tamponade. The patient does not have pneumoperitoneum and I have decreased suspicion of viscus perforation as possible referred pain. The patient does not have a history of heart failure and I have low suspicion for this. The patient does not have a diagnosis of COPD and is not wheezing tod ay. The patient's pain was pleuritic in nature. She is bedbound and at an increased risk of a hypercoagulable state. Her d-dimer was elevated, so a CTA of the chest was pursued. Fortunately, there is no obvious evidence of pulmonary embolism. The patient was treated with Toradol and ultimately morphine for pain control. ADMISSION At this time, I feel that the patient requires admission for further evaluation and management. The patient will be admitted to [Panel] in accordance with the [facility]'s insurance. The patient was accepted by Dr. Brown at 0458AM on 09/12/2018. Disclaimer: Inadvertent spelling and grammatical errors are likely due to EHR/dictation software use and do not reflect on the overall quality of patient care. Note that the electronic time recorded on this note does not necessarily reflect the actual time of the patient encounter. Departure Diagnosis: Primary Impression: Right middle lobe pneumonia Pneumonia type: due to unspecified organism Qualified Codes: J18.1 - Lobar pneumonia, unspecified organism Additional Impressions: Abdominal pain Abdominal location: right upper quadrant Qualified Codes: R10.11 - Right upper quadrant pain Nonspecific chest pain Right middle lobe pulmonary infiltrate Leukocytosis Leukocytosis type: unspecified Qualified Codes: D72.829 - Elevated white blood cell count, unspecified Microcytic anemia Urinary tract infection Urinary tract infection type: acute cystitis Hematuria presence: without hematuria Qualified Codes: N30.00 - Acute cystitis without hematuria Elevated d-dimer Thrombocytosis Cholelithiasis Cholelithiasis location: gallbladder Cholecystitis presence: without ch olecystitis Biliary obstruction: without biliary obstruction Qualified Codes: K80.20 - Calculus of gallbladder without cholecystitis without obstruction Pleural effusion, right Condition: Serious CHRISTY VINSON MD 27, 2019 23:19
[2018-09-12] MEDS ORDERED: SOD CHLORIDE 0.9% 100 ML ONE (00:32)
[2018-09-12] MEDS ORDERED: IOHEXOL 300MG/ML 150 ML BTL ONE (00:32)
[2018-09-12] MEDS ORDERED: ONDANSETRON 4 MG INJ IV STA (03:50)
[2018-09-12] MEDS ORDERED: morphine 4 MG/ML VIAL IV STA (03:50)
[2018-09-12] MEDS ORDERED: VANCOMYCIN 1 GM (PMX) 250 ML IVPB ONE (04:00)
[2018-09-12] MEDS ORDERED: SOD CHLORIDE 0.9% 1,000 ML IV ONE (04:00)
[2018-09-12] MEDS ORDERED: CEFEPIME 1GM/50 ML (PMX) 50 ML IVPB ONE (04:00)
[2018-09-12] MEDS ORDERED: ONDANSETRON 4 MG INJ IV PRN (06:30)
[2018-09-12] MEDS ORDERED: ACETAMINOPHEN 325 MG TAB PO PRN ×2 (06:30→07:00)
[2018-09-12] MEDS ORDERED: clonAZEPAM 0.5 MG TAB PO PRN (07:00)
[2018-09-12] MEDS ORDERED: ALBUTEROL/IPRATROPIUM (NEB) 3 ML AMP HHN PRN (07:00)
[2018-09-12] MEDS ORDERED: HYDROCODONE/APAP (5/325) TAB PO PRN (07:00)
[2018-09-12] MEDS ORDERED: NACL 0.9% 3 ML SYG IV SCH (07:00)
[2018-09-12] MEDS ORDERED: VANCOMYCIN IV PER PHARMACY XX SCH (07:00)
--- NOTE | 2018-09-12 07:09 | HP ---
Date/Time of Note Date/Time of Note DATE: 09/12/18 TIME: 07:03 Assessment/Plan VTE Prophylaxis Pharmacological prophylaxis: heparin Lines/Catheters IV Catheter Type (from Nrs): Saline [place] Assessment/Plan Assessment/Plan 1. Large consolidation of right middle lobe: Infectious process versus malignancy -Broad-spectrum IV antibiotic -CT-guided biopsy -ID consult -Oncology consult as needed 2. Probable sepsis: As evidenced by leukocytosis and tachycardia. Likely secondary to above -see #1 3. Right-sided abdominal pain: Most likely secondary to #1. RUQ ultrasound however shows cholelithiasis, but again I suspect pain is a result of lung di sease -Monitor closely -See #1 4. History of multiple sclerosis: Continue home med 5. Iron deficiency anemia: Hemoglobin 7.1 -Previously FOBT negative. Will repeat -Patient on Eliquis for lower extremity DVT. However during last hospitalization in 2017, venous study was negative for DVT. Will hold blood thinner for now -Start ferrous sulfate -Check ferritin/iron and depending on severity, will consider IV iron in-house 6. History of left lower extremity DVT: See #4 Result Diagram: 09/11/18 2345 09/11/18 2220 Results 24hrs Laboratory Tests Test 09/11/18 22:20 09/11/18 23:45 09/12/18 00:30 09/12/18 01:10 Prothrombin Time 14.1 Prothrombin Time 1.1 Ratio INR International 1.08 Normalized Ratio D-Dimer 833.28 H D-Dimer Comment Sodium Level 138 Potassium Level 4.0 Chloride Level 103 Carbon Dioxide Level 22 Anion Gap 13 Blood Urea Nitrogen 10 Creatinine 0.47 Est Glomerular > 60 Filtrat Rate mL/min Glucose Level 219 Calcium Level 9.4 Total Bilirubin 0.2 Direct Bilirubin 0.00 Indirect Bilirubin 0.2 Aspartate Amino 36 Transf (AST/SGOT) Alanine 17 Aminotransferase (AL T/SGPT) Alkaline Phosphatase 75 Troponin I < 0.012 Total Protein 8.0 Albumin 4.1 Globulin 3.90 H Albumin/Globulin 1.05 Ratio Lipase 56 White Blood Count 19.7 #H Red Blood Count 3.55 L Hemoglobin 7.2 L Hematocrit 25.3 L Mean Corpuscular 71.3 L Volume Mean Corpuscular 20.3 L Hemoglobin Mean Corpuscular 28.5 L Hemoglobin Concent Red Cell 16.8 H Distribution Width Platelet Count 588 H Mean Platelet Volume 9.9 Immature 0.900 H Granulocytes % Neutrophils % 81.1 H Lymphocytes % 8.6 L Monocytes % 8.4 Eosinophils % 0.8 Basophils % 0.2 Nucleated Red Blood 0.2 H Cells % Immature 0.180 H Granulocytes # Neutrophils # 16.0 H Lymphocytes # 1.7 Monocytes # 1.7 H Eosinophils # 0.2 Basophils # 0.0 Nucleated Red Blood 0.0 Cells # Urine Color OLIVIER Urine Clarity CLOUDY A Urine pH 5.0 Urine Specific 1.015 [place] Urine Ketones TRACE A Urine Nitrite NEGATIVE Urine Bilirubin NEGATIVE Urine Urobilinogen NEGATIVE Urine Leukocyte TRACE A Esterase Urine Microscopic 0 RBC Urine Microscopic 14 H WBC Urine Squamous FEW Epithelial Cells Urine Bacteria FEW A Urine Hemoglobin NEGATIVE Urine Glucose NEGATIVE Urine Total Protein NEGATIVE Serum HCG, NEGATIVE Qualitative HPI/ROS Admit Date/Time Admit Date/Time Hx of Present Illness This is a 53-year-old female with a history of multiple sclerosis, left lower extremity DVT, gastritis, iron deficiency anemia who presented to ER complaining of right-sided abdominal and right-sided chest pain of a few days duration. Pain is described as sharp. Reported nausea. Denied fever/chills. When presented to ER, she was slightly tachycardic otherwise vitals stable. Lab shows a WBC of 20,000, hemoglobin 7.1. Abdominal ultrasound shows cholelithiasis, CT abdomen pelvis and Chest CT shows the followin. Large rounded area of heterogeneous consolidation medially in the right middle lobe with slightly enlarged right hilar node and small right pleural effusion. This may represent an area of rounded configuration pneumonia, postobstructive change, or possibly a mass. Follow up imaging after treatment to document resolution is suggested. 2. No definite pulmonary embolus. No aortic dissection or aneurysm. Study limited by poor contrast bolus and breathing motion artifact. 3. There is an oval 2 cm structure medially in the left breast which most likely represents a cyst. Correlation with mammography is suggested, however. PMH/Family/Social Past Medical History Past Surgical History Past Surgical Hx: other (see hpi) Family History Significant Family History: other Social History Smoking Status: Unknown if ever smoked Drug Use: other Exam Constitutional: other (no acute distress) Eyes: EOMI, PERRL Neck: supple Respiratory: normal air movement Cardiovascular: nl pulses Gastrointestinal: soft Extremities: normal pulses Medications Current Medications Ondansetron HCl (Zofran Inj) 4 mg ER BRIDGE PRN IV NAUSEA/VOMITING; Start 09/12/18 at 06:30; Stop 09/13/18 at 06:29 Acetaminophen (Tylenol Tab) 650 mg ER BRIDGE PRN PO .MILD PAIN 1-3 OR TEMP; Start 09/12/18 at 06:30; Stop 09/13/18 at 06:29 Coded Allergies: No Known Allergy (Unverified , 09/11/18) Social History Smoking Status: Never smoker Exam/Review of Systems Vital Signs Vitals Vital Signs Date Temp Pulse Resp B/P (MAP) Pulse Ox O2 O2 Flow FiO2 Time Delivery Rate 09/12/18 98.9 107 18 94/62 (73) 98 Nasal 06:46 Cannula Intake and Output 09/11/18 09/11/18 09/12/18 1414:59 22:59 06:59 IntakeIntake Total 1400 ml BalanceBalance 1400 ml Exam Constitutional: other (No acute distress) Head: normocephalic, atraumatic Eyes: PERRL Respiratory: diminished breath sounds Cardiovascular: other (Slight tachycardia regular rhythm) Gastrointestinal: soft, tender Extremities: normal pulses CLEO FARRIS MD Sep 12, 2018 07:09
[2018-09-12] MEDS: PANTOPRAZOLE (EC) 40 MG TAB PO SCH (07:31)
[2018-09-12] MEDS: PIPER-TAZO 3.375 GM IV (PMX) 100 ML IVPB SCH ×3 (07:32→18:59)
[2018-09-12] MEDS: SOD CHLORIDE 0.9% 1,000 ML IV SCH ×2 (07:32→18:02)
[2018-09-12] MEDS: FERROUS SULFATE (EC) 325 MG TAB PO SCH ×3 (08:51→21:12)
[2018-09-12] MEDS ORDERED: NON-FORMULARY/PATIENT OWN MED (Dimethyl Fumarate (Tecfidera) 240 MG) PO SCH ×2 (09:00→17:30)
--- NOTE | 2018-09-12 10:45 | PN ---
Date/Time of Note Date/Time of Note DATE: 09/12/18 TIME: 10:45 Assessment/Plan VTE Prophylaxis SCD applied (from Nsg): Yes Pharmacological prophylaxis: NA/contraindicated Pharm contraindication: anticoag not tolerated Lines/Catheters IV Catheter Type (from Nrs): Saline Lock Assessment/Plan Hospital Course SUBJECTIVE: Complains of right-sided chest pain reproducible with touch. He also reports generalized body aches. OBJECTIVE: Vital signs-see below PHYSICAL EXAM: Constitutional: Well-developed, adequately built, no acute distress. Psych: nl mood/affect, no complaints Head: atraumatic, normocephalic Eyes: nl conjunctiva, nl sclera ENMT: mucosa pink and moist, nl external ears & nose Neck: non-tender, supple Respiratory: rhonchi RUL. Diminished bibasilar, normal air movement Cardiovascular: nl pulses, regular rate and rhythm Gastrointestinal: non-tender, soft, bowel sounds active in all 4 quadrants. Musculoskeletal/extremities: nl extremities to inspection, motor strength equal bilaterally, no focal deficit. Normal pulses,no cyanosis, no edema. Neurological: Alert oriented 3,nl speech, nl strength Skin: nl turgor ASSESSMENT/PLAN:53-year-old female with a history of multiple sclerosis, DVT which was treated back in 2017 with resolution, GI bleed, treated with 5-day duration of right-sided chest pain, myalgias, cough and fevers, found to have sepsis w/PNA and a possible lung abscess. 1. Sepsis -Most likely source: Pneumonia w/high suspicion for a lung abscess -Obtain lactate, blood cultures, Influenza swabs, respiratory cultures and urine cultures -Start Zosyn -IV fluids 2.RML Lung abscess vs pneumonia -Less likely a lung mass in light of sepsis. CT biopsy of this area was ordered already as a mass cannot be ruled out in the CT. -At this time, we will treat her with broad spectrum antibiotics -Pulmonary/ID consult 3. Anemia, likely iron deficient -H&H is low, likely secondary to acute inflammation. -Had hx of GIB in the past=>obtain stool OB -Heme consult for anemia workup. 4. History of multiple sclerosis - Continue home med 5.Asymptomatic Cholelithiasis -monitor. 6.Rt sided reproducible chest pain/ Myalgia, likely from acute inflammatory/infectious process. -PRN NSAIDS -Tropsx3 DVT prophylaxis: SCDs PUD prophylaxis: Not indicated CODE STATUS: Full code Diet: Regular diet. Disposition: Continue current management. Follow-up consultants r ecommendations. Patient was seen in collaboration with Dr. Cancino. Result Diagram: 09/11/18 2345 09/11/18 2220 Results 24hrs Laboratory Tests Test 09/11/18 22:20 09/11/18 23:45 09/12/18 00:30 09/12/18 01:10 Prothrombin Time 14.1 Prothrombin Time 1.1 Ratio INR International 1.08 Normalized Ratio D-Dimer 833.28 H D-Dimer Comment Sodium Level 138 Potassium Level 4.0 Chloride Level 103 Carbon Dioxide Level 22 Anion Gap 13 Blood Urea Nitrogen 10 Creatinine 0.47 Est Glomerular > 60 Filtrat Rate mL/min Glucose Level 219 Calcium Level 9.4 Total Bilirubin 0.2 Direct Bilirubin 0.00 Indirect Bilirubin 0.2 Aspartate Amino 36 Transf (AST/SGOT) Alanine 17 Aminotransferase (AL T/SGPT) Alkaline Phosphatase 75 Troponin I < 0.012 Total Protein 8.0 Albumin 4.1 Globulin 3.90 H Albumin/Globulin 1.05 Ratio Lipase 56 White Blood Count 19.7 #H Red Blood Count 3.55 L Hemoglobin 7.2 L Hematocrit 25.3 L Mean Corpuscular 71.3 L Volume Mean Corpuscular 20.3 L Hemoglobin Mean Corpuscular 28.5 L Hemoglobin Concent Red Cell 16.8 H Distribution Width Platelet Count 588 H Mean Platelet Volume 9.9 Immature 0.900 H Granulocytes % Neutrophils % 81.1 H Lymphocytes % 8.6 L Monocytes % 8.4 Eosinophils % 0.8 Basophils % 0.2 Nucleated Red Blood 0.2 H Cells % Immature 0.180 H Granulocytes # Neutrophils # 16.0 H Lymphocytes # 1.7 Monocytes # 1.7 H Eosinophils # 0.2 Basophils # 0.0 Nucleated Red Blood 0.0 Cells # Urine Color OLIVIER Urine Clarity CLOUDY A Urine pH 5.0 Urine Specific 1.015 [place] Urine Ketones TRACE A Urine Nitrite NEGATIVE Urine Bilirubin NEGATIVE Urine Urobilinogen NEGATIVE Urine Leukocyte TRACE A Esterase Urine Microscopic 0 RBC Urine Microscopic 14 H WBC Urine Squamous FEW Epithelial Cells Urine Bacteria FEW A Urine Hemoglobin NEGATIVE Urine Glucose NEGATIVE Urine Total Protein NEGATIVE Serum HCG, NEGATIVE Qualitative Exam/Review of Systems Exam Vitals Vital Signs Date Temp Pulse Resp B/P (MAP) Pulse Ox O2 O2 Flow FiO2 Time Delivery Rate 09/12/18 100.9 09:24 09/12/18 118 18 118/71 100 Nasal 2.0 09:00 (87) Cannula Intake and Output 09/11/18 09/11/18 09/12/18 1515:00 23:00 07:00 IntakeIntake Total 1400 ml BalanceBalance 1400 ml Results Results 24hrs Laboratory Tests Test 09/11/18 22:20 09/11/18 23:45 09/12/18 00:30 09/12/18 01:10 Prothrombin Time 14.1 Prothrombin Time 1.1 Ratio INR International 1.08 Normalized Ratio D-Dimer 833.28 H D-Dimer Comment Sodium Level 138 Potassium Level 4.0 Chloride Level 103 Carbon Dioxide Level 22 Anion Gap 13 Blood Urea Nitrogen 10 Creatinine 0.47 Est Glomerular > 60 Filtrat Rate mL/min Glucose Level 219 Calcium Level 9.4 Total Bilirubin 0.2 Direct Bilirubin 0.00 Indirect Bilirubin 0.2 Aspartate Amino 36 Transf (AST/SGOT) Alanine 17 Aminotransferase (AL T/SGPT) Alkaline Phosphatase 75 Troponin I < 0.012 Total Protein 8.0 Albumin 4.1 Globulin 3.90 H Albumin/Globulin 1.05 Ratio Lipase 56 White Blood Count 19.7 #H Red Blood Count 3.55 L Hemoglobin 7.2 L Hematocrit 25.3 L Mean Corpuscular 71.3 L Volume Mean Corpuscular 20.3 L Hemoglobin Mean Corpuscular 28.5 L Hemoglobin Concent Red Cell 16.8 H Distribution Width Platelet Count 588 H Mean Platelet Volume 9.9 Immature 0.900 H Granulocytes % Neutrophils % 81.1 H Lymphocytes % 8.6 L Monocytes % 8.4 Eosinophils % 0.8 Basophils % 0.2 Nucleated Red Blood 0.2 H Cells % Immature 0.180 H Granulocytes # Neutrophils # 16.0 H Lymphocytes # 1.7 Monocytes # 1.7 H Eosinophils # 0.2 Basophils # 0.0 Nucleated Red Blood 0.0 Cells # Urine Color OLIVIER Urine Clarity CLOUDY A Urine pH 5.0 Urine Specific 1.015 [place] Urine Ketones TRACE A Urine Nitrite NEGATIVE Urine Bilirubin NEGATIVE Urine Urobilinogen NEGATIVE Urine Leukocyte TRACE A Esterase Urine Microscopic 0 RBC Urine Microscopic 14 H WBC Urine Squamous FEW Epithelial Cells Urine Bacteria FEW A Urine Hemoglobin NEGATIVE Urine Glucose NEGATIVE Urine Total Protein NEGATIVE Serum HCG, NEGATIVE Qualitative Medications Medication Current Medications Ondansetron HCl (Zofran Inj) 4 mg ER BRIDGE PRN IV NAUSEA/VOMITING; Start 09/12/18 at 06:30; Stop 09/13/18 at 06:29 Acetaminophen (Tylenol Tab) 650 mg ER BRIDGE PRN PO .MILD PAIN 1-3 OR TEMP Last administered on 09/12/18at 09:24; Admin Dose 650 MG; Start 09/12/18 at 06:30; Stop 09/13/18 at 06:29 IV Flush (NS 3 ml) 3 ml PER PROTOCOL IV ; Start 09/12/18 at 07:00 Ondansetron HCl (Zofran Inj) 4 mg Q6H PRN IV NAUSEA/VOMITING; Start 09/12/18 at 07:00 Acetaminophen (Tylenol Tab) 650 mg Q6H PRN PO .PAIN 1-3 OR TEMP; Start 09/12/18 at 07:00 Acetaminophen/ Hydrocodone Bitart ([place] (5/325)) 1 tab Q6H PRN PO .PAIN 4-6; Start 09/12/18 at 07:00 Albuterol/ Ipratropium (Duoneb) 3 ml Q2H RESP THERAPY PRN HHN SHORTNESS OF BREATH; Start 09/12/18 at 07:00 Clonazepam (Klonopin) 1 mg BID PRN PO ANXIETY; Start 09/12/18 at 07:00 Pantoprazole (Protonix Tab) 40 mg AC BREAKFAST PO Last administered on 09/12/18at 07:31; Admin Dose 40 MG; Start 09/12/18 at 07:00 Miscellaneous Information 240 mg BID PO ; Start 09/12/18 at 09:00; Status UNV Vancomycin HCl (Vanco Iv Per Pharmacy) VANCOMYCIN PER PHARMACY PER PROTOCOL XX ; Start 09/12/18 at 07:00 Piperacillin Sod/ Tazobactam Sod 100 ml @ 200 mls/hr Q6H IVPB Last administered on 09/12/18at 07:32; Admin Dose 200 MLS/HR; Start 09/12/18 at 07:00 Sodium Chloride 1,000 ml @ 100 mls/hr Q10H IV Last administered on 09/12/18at 07:32; Admin Dose 100 MLS/HR; Start 09/12/18 at 07:30 Ferrous Sulfate (Ferrous Sulfate (Ec)) 325 mg TID PO Last administered on 09/12/18at 08:51; Admin Dose 325 MG; Start 09/12/18 at 09:00 ENZO ESTRADA NP Sep 12, 2018 10:45
[2018-09-12] MEDS ORDERED: traMADol 50 MG TAB PO PRN (11:00)
[2018-09-12] MEDS ORDERED: LEVOFLOXACIN 750MG/D5W (PMX) 150 ML IVPB ONE (12:00)
--- NOTE | 2018-09-12 12:16 | CONS ---
Assessment/Plan Assessment/Plan Assessment/Plan (Daily) Assessment and recommendations; 1. Patient admitted with community-acquired pneumonia with right lung necrotizing pneumonia involving middle lobe. 2. History of multiple sclerosis with functional quadriplegia. 3. History of prior lower extremity DVT. Continue current supportive care. Add Levaquin 750 mg IV daily. Obtain follow- up chest x-ray in 48 hours. Consultation Date/Type/Reason Admit Date/Time Date of Consultation: Sep 12, 2018 Type of Consult Pulmonary pulmonary consult requested for evaluation of pneumonia. Patient is a pleasant 53-year-old lady who came into the hospital with a 2-day history of fever, coughing and chest congestion. Upon evaluation chest x-ray was done which is showing right middle lobe pneumonia. Patient also subsequently had a CT of the chest done which is showing necrotizing pneumonia involving the right middle lobe, patient status post biopsy of the infiltrate. Likely lung abscess. By the time I saw her in ER patient appeared very comfortable and was not in any distress whatsoever. Past medical history; 1. multiple sclerosis with essential quadriplegia, patient is bedridden. 2. History of left lower extremity DVT. Medications; reviewed. Allergies; none. Social history; noncontributory. Family history; patient is , has a supportive family. Occupational history; patient is on disability. Review of systems; denies any headache, seizures, chest pain, complains of scant cough with scant sputum production. Had low-grade fever. Denies any abdominal pain, nausea vomiting. Denies any melena hematochezia or diarrhea. Any urinary symptoms. Any orthopnea. Patient denies any dysphagia. General exam; middle-aged female, awake and alert. Currently in no distress. Date/Time of Note DATE: 09/12/18 TIME: 12:12 Past Medical History Home Meds Reported Medications Ibuprofen* (Ibuprofen*) 600 Mg Tablet, 600 MG PO NEEDED PRN for PAIN, TAB 09/11/18 Pantoprazole* (Pantoprazole*) 40 Mg Tablet.dr, 40 MG PO AC BREAKFAST, TAB 09/11/18 Dimethyl Fumarate (Tecfidera) 240 Mg Capsule.dr, 240 MG PO BID, CAP 09/11/18 Clonazepam* (Clonazepam*) 1 Mg Tablet, 1 MG PO BID PRN for ANXIETY, TAB 09/11/18 Apixaban* (Eliquis*) 2.5 Mg Tablet, 2.5 MG PO BID, TAB 09/11/18 Discontinued Reported Medications Apixaban* (Eliquis*) 2.5 Mg Tablet, 2.5 MG PO BID, TAB 01/07/18 Clonazepam* (Clonazepam*) 1 Mg Tablet, 1 MG PO TID PRN for ANXIETY, TAB 01/13/16 Dimethyl Fumarate (Tecfidera) 240 Mg Capsule.dr, 240 MG PO BID, CAP 01/13/16 Medications Current Medications Ondansetron HCl (Zofran Inj) 4 mg ER BRIDGE PRN IV NAUSEA/VOMITING; Start 09/12/18 at 06:30; Stop 09/13/18 at 06:29 Acetaminophen (Tylenol Tab) 650 mg ER BRIDGE PRN PO .MILD PAIN 1-3 OR TEMP Last administered on 09/12/18at 09:24; Admin Dose 650 MG; Start 09/12/18 at 06:30; Stop 09/13/18 at 06:29 IV Flush (NS 3 ml) 3 ml PER PROTOCOL IV ; Start 09/12/18 at 07:00 Ondansetron HCl (Zofran Inj) 4 mg Q6H PRN IV NAUSEA/VOMITING; Start 09/12/18 at 07:00 Acetaminophen (Tylenol Tab) 650 mg Q6H PRN PO .PAIN 1-3 OR TEMP; Start 09/12/18 at 07:00 Acetaminophen/ Hydrocodone Bitart ([place] (5/325)) 1 tab Q6H PRN PO .PAIN 4-6; Start 09/12/18 at 07:00 Albuterol/ Ipratropium (Duoneb) 3 ml Q2H RESP THERAPY PRN HHN SHORTNESS OF BREATH; Start 09/12/18 at 07:00 Clonazepam (Klonopin) 1 mg BID PRN PO ANXIETY; Start 09/12/18 at 07:00 Pantoprazole (Protonix Tab) 40 mg AC BREAKFAST PO Last administered on 09/12/18at 07:31; Admin Dose 40 MG; Start 09/12/18 at 07:00 Miscellaneous Information 240 mg BID PO ; Start 09/12/18 at 09:00; Status UNV Vancomycin HCl (Vanco Iv Per Pharmacy) VANCOMYCIN PER PHARMACY PER PROTOCOL XX ; Start 09/12/18 at 07:00 Piperacillin Sod/ Tazobactam Sod 100 ml @ 200 mls/hr Q6H IVPB Last administered on 09/12/18at 07:32; Admin Dose 200 MLS/HR; Start 09/12/18 at 07:00 Sodium Chloride 1,000 ml @ 100 mls/hr Q10H IV Last administered on 09/12/18at 07:32; Admin Dose 100 MLS/HR; Start 09/12/18 at 07:30 Ferrous Sulfate (Ferrous Sulfate (Ec)) 325 mg TID PO Last administered on 09/12/18at 08:51; Admin Dose 325 MG; Start 09/12/18 at 09:00 Ibuprofen (Motrin) 400 mg Q6H PRN PO MILD PAIN(1-3) OR TEMP>38C; Start 09/12/18 at 11:00 Tramadol HCl (Ultram) 50 mg Q6H PRN PO MODERATE PAIN LEVEL 4-6; Start 09/12/18 at 11:00 Levofloxacin/ Dextrose 150 ml @ 100 mls/hr DAILY ONCE IVPB ; Start 09/12/18 at 12:00; Stop 09/12/18 at 13:29 Allergies: Coded Allergies: No Known Allergy (Unverified , 09/11/18) Social History Smoking Status: Never smoker Exam/Review of Systems Exam Vitals Vital Signs Date Temp Pulse Resp B/P (MAP) Pulse Ox O2 O2 Flow FiO2 Time Delivery Rate 09/12/18 98.2 102 18 104/42 99 Nasal 2.0 11:00 (62) Cannula Intake and Output 09/11/18 09/11/18 09/12/18 1414:59 22:59 06:59 IntakeIntake Total 1400 ml BalanceBalance 1400 ml Exam HEENT exam; supple neck, no JVD. No lymphadenopathy. Midline trachea. No thyromegaly. Patient has fair dentition. Chest exam; diminished but clear breath sounds. S1-S2 audible, no murmurs. Regular rhythm. Abdomen exam; soft, nontender. Protuberant. No organomegaly. Bowel sounds audible. Extremity exam; peripheral edema clubbing. [employer] COM[employer]IANCE [employer]ITOR exam; cranial nerves are intact, patient has functional quadriplegia. Results Result Diagram: 09/11/18 4458 09/11/18 2220 Results 24hrs Laboratory Tests Test 09/11/18 22:20 09/11/18 23:45 09/12/18 00:30 09/12/18 01:10 Prothrombin Time 14.1 Prothrombin Time 1.1 Ratio INR International 1.08 Normalized Ratio D-Dimer 833.28 H D-Dimer Comment Sodium Level 138 Potassium Level 4.0 Chloride Level 103 Carbon Dioxide Level 22 Anion Gap 13 Blood Urea Nitrogen 10 Creatinine 0.47 Est Glomerular > 60 Filtrat Rate mL/min Glucose Level 219 Calcium Level 9.4 Total Bilirubin 0.2 Direct Bilirubin 0.00 Indirect Bilirubin 0.2 Aspartate Amino 36 Transf (AST/SGOT) Alanine 17 Aminotransferase (AL T/SGPT) Alkaline Phosphatase 75 Troponin I < 0.012 Total Protein 8.0 Albumin 4.1 Globulin 3.90 H Albumin/Globulin 1.05 Ratio Lipase 56 White Blood Count 19.7 #H Red Blood Count 3.55 L Hemoglobin 7.2 L Hematocrit 25.3 L Mean Corpuscular 71.3 L Volume Mean Corpuscular 20.3 L Hemoglobin Mean Corpuscular 28.5 L Hemoglobin Concent Red Cell 16.8 H Distribution Width Platelet Count 588 H Mean Platelet Volume 9.9 Immature 0.900 H Granulocytes % Neutrophils % 81.1 H Lymphocytes % 8.6 L Monocytes % 8.4 Eosinophils % 0.8 Basophils % 0.2 Nucleated Red Blood 0.2 H Cells % Immature 0.180 H Granulocytes # Neutrophils # 16.0 H Lymphocytes # 1.7 Monocytes # 1.7 H Eosinophils # 0.2 Basophils # 0.0 Nucleated Red Blood 0.0 Cells # Urine Color [place]IER Urine Clarity CLOUDY A Urine pH 5.0 Urine Specific 1.015 [place] Urine Ketones TRACE A Urine Nitrite NEGATIVE Urine Bilirubin NEGATIVE Urine Urobilinogen NEGATIVE Urine Leukocyte TRACE A Esterase Urine Microscopic 0 RBC Urine Microscopic 14 H WBC Urine Squamous FEW Epithelial Cells Urine Bacteria FEW A Urine Hemoglobin NEGATIVE Urine Glucose NEGATIVE Urine Total Protein NEGATIVE Serum HCG, NEGATIVE Qualitative Test 09/12/18 10:53 Lactic Acid Level 0.7 Iron Level 15 L Total Iron Binding 236 L Capacity Percent Iron 6 L Saturation Medications Medication Current Medications Ondansetron HCl (Zofran Inj) 4 mg ER BRIDGE PRN IV NAUSEA/VOMITING; Start 09/12/18 at 06:30; Stop 09/13/18 at 06:29 Acetaminophen (Tylenol Tab) 650 mg ER BRIDGE PRN PO .MILD PAIN 1-3 OR TEMP Last administered on 09/12/18at 09:24; Admin Dose 650 MG; Start 09/12/18 at 06:30; Stop 09/13/18 at 06:29 IV Flush (NS 3 ml) 3 ml PER PROTOCOL IV ; Start 09/12/18 at 07:00 Ondansetron HCl (Zofran Inj) 4 mg Q6H PRN IV NAUSEA/VOMITING; Start 09/12/18 at 07:00 Acetaminophen (Tylenol Tab) 650 mg Q6H PRN PO .PAIN 1-3 OR TEMP; Start 09/12/18 at 07:00 Acetaminophen/ Hydrocodone Bitart ([place] (5/325)) 1 tab Q6H PRN PO .PAIN 4-6; Start 09/12/18 at 07:00 Albuterol/ Ipratropium (Duoneb) 3 ml Q2H RESP THERAPY PRN HHN SHORTNESS OF BREATH; Start 09/12/18 at 07:00 Clonazepam (Klonopin) 1 mg BID PRN PO ANXIETY; Start 09/12/18 at 07:00 Pantoprazole (Protonix Tab) 40 mg AC BREAKFAST PO Last administered on 09/12/18at 07:31; Admin Dose 40 MG; Start 09/12/18 at 07:00 Miscellaneous Information 240 mg BID PO ; Start 09/12/18 at 09:00; Status UNV Vancomycin HCl (Vanco Iv Per Pharmacy) VANCOMYCIN PER PHARMACY PER PROTOCOL XX ; Start 09/12/18 at 07:00 Piperacillin Sod/ Tazobactam Sod 100 ml @ 200 mls/hr Q6H IVPB Last administered on 09/12/18at 07:32; Admin Dose 200 MLS/HR; Start 09/12/18 at 07:00 Sodium Chloride 1,000 ml @ 100 mls/hr Q10H IV Last administered on 09/12/18at 07:32; Admin Dose 100 MLS/HR; Start 09/12/18 at 07:30 Ferrous Sulfate (Ferrous Sulfate (Ec)) 325 mg TID PO Last administered on 09/12/18at 08:51; Admin Dose 325 MG; Start 09/12/18 at 09:00 Ibuprofen (Motrin) 400 mg Q6H PRN PO MILD PAIN(1-3) OR TEMP>38C; Start 09/12/18 at 11:00 Tramadol HCl (Ultram) 50 mg Q6H PRN PO MODERATE PAIN LEVEL 4-6; Start 09/12/18 at 11:00 Levofloxacin/ Dextrose 150 ml @ 100 mls/hr DAILY ONCE IVPB ; Start 09/12/18 at 12:00; Stop 09/12/18 at 13:29 HIREN BOOKER Sep 12, 2018 12:16
--- NOTE | 2018-09-12 14:45 | CONS ---
Assessment/Plan Assessment/Plan Assessment/Plan (Daily) 53 yo woman with possible pneumonia referred for iron deficiency anemia. She has low iron sat, low ferritin and low MCV. The history is compatible with iron deficit due to menorrhagia. Oral iron has not been sufficient after a four month trial. I will order IV iron but continue PO iron. Hgb is borderline but she is clinically stable. IV hydration is being given so she may show a decline of the Hgb and need RBC transfusion tomorrow. I do not think endoscopy is needed given that the evaluation has already been done. BONNIE is reasonable but it would not be suggested during this admission because of the possible pneumonia. Consultation Date/Type/Reason Admit Date/Time 09/12/18 Date of Consultation: Sep 12, 2018 Type of Consult Hematology Reason for Consultation anemia Requesting Provider: CLEO FARRIS MD Date/Time of Note DATE: 09/12/18 TIME: 14:33 Hx of Present Illness 53 yo woman with Hgb 7.2. She is being admitted for possible pneumonia. The anemia history dates back at least 2 years and occasionally has lead to tra nsfusions. Last year, the family says endoscopies were done but no bleeding site found. She does have menorrhagia and uterine fibroids were discovered. Hysterectomy was suggested last April but she has not made up her mind. She has been taking 6 iron tablets per day orally since then however but did not f/u with a doctor. Other history is notable for MS and DVT on apixaban. Past Medical History Home Meds Reported Medications Ibuprofen* (Ibuprofen*) 600 Mg Tablet, 600 MG PO NEEDED PRN for PAIN, TAB 09/11/18 Pantoprazole* (Pantoprazole*) 40 Mg Tablet.dr, 40 MG PO AC BREAKFAST, TAB 09/11/18 Dimethyl Fumarate (Tecfidera) 240 Mg Capsule.dr, 240 MG PO BID, CAP 09/11/18 Clonazepam* (Clonazepam*) 1 Mg Tablet, 1 MG PO BID PRN for ANXIETY, TAB 09/11/18 Apixaban* (Eliquis*) 2.5 Mg Tablet, 2.5 MG PO BID, TAB 09/11/18 Discontinued Reported Medications Apixaban* (Eliquis*) 2.5 Mg Tablet, 2.5 MG PO BID, TAB 01/07/18 Clonazepam* (Clonazepam*) 1 Mg Tablet, 1 MG PO TID PRN for ANXIETY, TAB 01/13/16 Dimethyl Fumarate (Tecfidera) 240 Mg Capsule.dr, 240 MG PO BID, CAP 01/13/16 Medications Current Medications Ondansetron HCl (Zofran Inj) 4 mg ER BRIDGE PRN IV NAUSEA/VOMITING; Start 09/12/18 at 06:30; Stop 09/13/18 at 06:29 Acetaminophen (Tylenol Tab) 650 mg ER BRIDGE PRN PO .MILD PAIN 1-3 OR TEMP Last administered on 09/12/18at 09:24; Admin Dose 650 MG; Start 09/12/18 at 06:30; Stop 09/13/18 at 06:29 IV Flush (NS 3 ml) 3 ml PER PROTOCOL IV ; Start 09/12/18 at 07:00 Ondansetron HCl (Zofran Inj) 4 mg Q6H PRN IV NAUSEA/VOMITING; Start 09/12/18 at 07:00 Acetaminophen (Tylenol Tab) 650 mg Q6H PRN PO .PAIN 1-3 OR TEMP; Start 09/12/18 at 07:00 Acetaminophen/ Hydrocodone Bitart ([place] (5/325)) 1 tab Q6H PRN PO .PAIN 4-6; Start 09/12/18 at 07:00 Albuterol/ Ipratropium (Duoneb) 3 ml Q2H RESP THERAPY PRN HHN SHORTNESS OF BREATH; Start 09/12/18 at 07:00 Clonazepam (Klonopin) 1 mg BID PRN PO ANXIETY; Start 09/12/18 at 07:00 Pantoprazole (Protonix Tab) 40 mg AC BREAKFAST PO Last administered on 09/12/18at 07:31; Admin Dose 40 MG; Start 09/12/18 at 07:00 Miscellaneous Information 240 mg BID PO ; Start 09/12/18 at 09:00; Status UNV Vancomycin HCl (Vanco Iv Per Pharmacy) VANCOMYCIN PER PHARMACY PER PROTOCOL XX ; Start 09/12/18 at 07:00 Piperacillin Sod/ Tazobactam Sod 100 ml @ 200 mls/hr Q6H IVPB Last administered on 09/12/18at 13:47; Admin Dose 200 MLS/HR; Start 09/12/18 at 07:00 Sodium Chloride 1,000 ml @ 100 mls/hr Q10H IV Last administered on 09/12/18at 07:32; Admin Dose 100 MLS/HR; Start 09/12/18 at 07:30 Ferrous Sulfate (Ferrous Sulfate (Ec)) 325 mg TID PO Last administered on 09/12/18at 13:47; Admin Dose 325 MG; Start 09/12/18 at 09:00 Ibuprofen (Motrin) 400 mg Q6H PRN PO MILD PAIN(1-3) OR TEMP>38C; Start 09/12/18 at 11:00 Tramadol HCl (Ultram) 50 mg Q6H PRN PO MODERATE PAIN LEVEL 4-6; Start 09/12/18 at 11:00 Allergies: Coded Allergies: No Known Allergy (Unverified , 09/11/18) Social History Smoking Status: Never smoker Exam/Review of Systems Exam Vitals Vital Signs Date Temp Pulse Resp B/P (MAP) Pulse Ox O2 O2 Flow FiO2 Time Delivery Rate 09/12/18 106 18 103/57 100 Nasal 2.0 14:16 (72) Cannula 09/12/18 98.2 11:00 Intake and Output 09/11/18 09/11/18 09/12/18 1515:00 23:00 07:00 IntakeIntake Total 1400 ml BalanceBalance 1400 ml Constitutional: alert, oriented Head: normocephalic, atraumatic Eyes: other (conjunctival pallor) ENMT: other (no telangiectasia) Neck: supple Respiratory: clear to auscultation Cardiovascular: regular rate and rhythm Gastrointestinal: soft, non-tender, other (central obesity) Neurological: other (alert. diffuse weakness) Results Result Diagram: 09/11/18 1947 09/11/18 2220 Results 24hrs Laboratory Tests Test 09/11/18 22:20 09/11/18 23:45 09/12/18 00:30 09/12/18 01:10 Prothrombin Time 14.1 Prothrombin Time 1.1 Ratio INR International 1.08 Normalized Ratio D-Dimer 833.28 H D-Dimer Comment Sodium Level 138 Potassium Level 4.0 Chloride Level 103 Carbon Dioxide Level 22 Anion Gap 13 Blood Urea Nitrogen 10 Creatinine 0.47 Est Glomerular > 60 Filtrat Rate mL/min Glucose Level 219 Calcium Level 9.4 Total Bilirubin 0.2 Direct Bilirubin 0.00 Indirect Bilirubin 0.2 Aspartate Amino 36 Transf (AST/SGOT) Alanine 17 Aminotransferase (AL T/SGPT) Alkaline Phosphatase 75 Troponin I < 0.012 Total Protein 8.0 Albumin 4.1 Globulin 3.90 H Albumin/Globulin 1.05 Ratio Lipase 56 White Blood Count 19.7 #H Red Blood Count 3.55 L Hemoglobin 7.2 L Hematocrit 25.3 L Mean Corpuscular 71.3 L Volume Mean Corpuscular 20.3 L Hemoglobin Mean Corpuscular 28.5 L Hemoglobin Concent Red Cell 16.8 H Distribution Width Platelet Count 588 H Mean Platelet Volume 9.9 Immature 0.900 H Granulocytes % Neutrophils % 81.1 H Lymphocytes % 8.6 L Monocytes % 8.4 Eosinophils % 0.8 Basophils % 0.2 Nucleated Red Blood 0.2 H Cells % Immature 0.180 H Granulocytes # Neutrophils # 16.0 H Lymphocytes # 1.7 Monocytes # 1.7 H Eosinophils # 0.2 Basophils # 0.0 Nucleated Red Blood 0.0 Cells # Urine Color OLIVIER Urine Clarity CLOUDY A Urine pH 5.0 Urine Specific 1.015 [place] Urine Ketones TRACE A Urine Nitrite NEGATIVE Urine Bilirubin NEGATIVE Urine Urobilinogen NEGATIVE Urine Leukocyte TRACE A Esterase Urine Microscopic 0 RBC Urine Microscopic 14 H WBC Urine Squamous FEW Epithelial Cells Urine Bacteria FEW A Urine Hemoglobin NEGATIVE Urine Glucose NEGATIVE Urine Total Protein NEGATIVE Serum HCG, NEGATIVE Qualitative Test 09/12/18 10:53 09/12/18 10:54 Lactic Acid Level 0.7 Iron Level 15 L Total Iron Binding 236 L Capacity Percent Iron 6 L Saturation Ferritin 14.9 Carcinoembryonic Pending Antigen Creatine Kinase < 20 L Creatine Kinase Index Creatinine Kinase MB < 0.22 (Mass) Troponin I < 0.012 Medications Medication Current Medications Ondansetron HCl (Zofran Inj) 4 mg ER BRIDGE PRN IV NAUSEA/VOMITING; Start 09/12/18 at 06:30; Stop 09/13/18 at 06:29 Acetaminophen (Tylenol Tab) 650 mg ER BRIDGE PRN PO .MILD PAIN 1-3 OR TEMP Last administered on 09/12/18at 09:24; Admin Dose 650 MG; Start 09/12/18 at 06:30; Stop 09/13/18 at 06:29 IV Flush (NS 3 ml) 3 ml PER PROTOCOL IV ; Start 09/12/18 at 07:00 Ondansetron HCl (Zofran Inj) 4 mg Q6H PRN IV NAUSEA/VOMITING; Start 09/12/18 at 07:00 Acetaminophen (Tylenol Tab) 650 mg Q6H PRN PO .PAIN 1-3 OR TEMP; Start 09/12/18 at 07:00 Acetaminophen/ Hydrocodone Bitart ([place] (5/325)) 1 tab Q6H PRN PO .PAIN 4-6; Start 09/12/18 at 07:00 Albuterol/ Ipratropium (Duoneb) 3 ml Q2H RESP THERAPY PRN HHN SHORTNESS OF BREATH; Start 09/12/18 at 07:00 Clonazepam (Klonopin) 1 mg BID PRN PO ANXIETY; Start 09/12/18 at 07:00 Pantoprazole (Protonix Tab) 40 mg AC BREAKFAST PO Last administered on 09/12/18at 07:31; Admin Dose 40 MG; Start 09/12/18 at 07:00 Miscellaneous Information 240 mg BID PO ; Start 09/12/18 at 09:00; Status UNV Vancomycin HCl (Vanco Iv Per Pharmacy) VANCOMYCIN PER PHARMACY PER PROTOCOL XX ; Start 09/12/18 at 07:00 Piperacillin Sod/ Tazobactam Sod 100 ml @ 200 mls/hr Q6H IVPB Last administered on 09/12/18at 13:47; Admin Dose 200 MLS/HR; Start 09/12/18 at 07:00 Sodium Chloride 1,000 ml @ 100 mls/hr Q10H IV Last administered on 09/12/18at 07:32; Admin Dose 100 MLS/HR; Start 09/12/18 at 07:30 Ferrous Sulfate (Ferrous Sulfate (Ec)) 325 mg TID PO Last administered on 09/12/18at 13:47; Admin Dose 325 MG; Start 09/12/18 at 09:00 Ibuprofen (Motrin) 400 mg Q6H PRN PO MILD PAIN(1-3) OR TEMP>38C; Start 09/12/18 at 11:00 Tramadol HCl (Ultram) 50 mg Q6H PRN PO MODERATE PAIN LEVEL 4-6; Start 09/12/18 at 11:00 SANDRA GARLAND MD Sep 12, 2018 14:45
[2018-09-12] MEDS: VANCOMYCIN HCL 1.5 GM in SOD CHLORIDE 0.9% 250 ML IVPB SCH (15:34)
[2018-09-12] MEDS: SOD FERRIC GLUC COMPLX 125 MG in SOD CHLORIDE 0.9% 100 ML IVPB SCH (18:02)
[2018-09-12 18:10] VITALS: PULSE 96
[2018-09-12 20:00] VITALS: BP 128/62; PULSE 120; PULSE 123; RESP 16
[2018-09-13] VITALS (9 sets, daily range): BP systolic 95–118; BP diastolic 50–60; PULSE 89–124; RESP 16–18
[2018-09-13] MEDS: PIPER-TAZO 3.375 GM IV (PMX) 100 ML IVPB SCH ×4 (00:14→20:54)
[2018-09-13] MEDS: SOD CHLORIDE 0.9% 1,000 ML IV SCH ×3 (02:49→23:30)
[2018-09-13] MEDS: VANCOMYCIN HCL 1.5 GM in SOD CHLORIDE 0.9% 250 ML IVPB SCH ×2 (03:01→16:26)
[2018-09-13] MEDS: PANTOPRAZOLE (EC) 40 MG TAB PO SCH (06:15)
--- NOTE | 2018-09-13 07:12 | CONS ---
Assessment/Plan Assessment/Plan Hospital Course (Demo Recall) 1)RML pneumonia with possible abscess the area of question for abscess is small and likely antibiotics alone will be sufficient CT chest did not suggest PE the development of possible abscess suggests aspiration respiratory cx was ordered but have asked nurse to place sputum container by her bedside and encourage daughter to collect I will also order nasal for MRSA continue with vanco/zosyn/levo at present 2)MS 3) hx of DVT 4) Fe deficiency anemia now on IV iron Consultation Date/Type/Reason Admit Date/Time 09/12/18 Date of Consultation: Sep 13, 2018 Type of Consult IS Date/Time of Note DATE: 09/13/18 TIME: 07:05 Hx of Present Illness spoke to daughter as marketing agent for pt pt had a cough for about 5-6 days but only in last 2 days [employer] did things get worse she was having productive phlegm and R chest pain that radiates to back she also had developed fevers no N, V pt has occasional problems with choking on liquids a family member had a slight cough prior to her getting sick but it was minor no recent hospitalization no dysuria, joint pains, rashes, D Past Medical History MS, DVT, iron deficiency Home Meds Reported Medications Ibuprofen* (Ibuprofen*) 600 Mg Tablet, 600 MG PO NEEDED PRN for PAIN, TAB 09/11/18 Pantoprazole* (Pantoprazole*) 40 Mg Tablet.dr, 40 MG PO AC BREAKFAST, TAB 09/11/18 Dimethyl Fumarate (Tecfidera) 240 Mg Capsule.dr, 240 MG PO BID, CAP 09/11/18 Clonazepam* (Clonazepam*) 1 Mg Tablet, 1 MG PO BID PRN for ANXIETY, TAB 09/11/18 Apixaban* (Eliquis*) 2.5 Mg Tablet, 2.5 MG PO BID, TAB 09/11/18 Discontinued Reported Medications Apixaban* (Eliquis*) 2.5 Mg Tablet, 2.5 MG PO BID, TAB 01/07/18 Clonazepam* (Clonazepam*) 1 Mg Tablet, 1 MG PO TID PRN for ANXIETY, TAB 01/13/16 Dimethyl Fumarate (Tecfidera) 240 Mg Capsule.dr, 240 MG PO BID, CAP 01/13/16 Medications Current Medications IV Flush (NS 3 ml) 3 ml PER PROTOCOL IV ; Start 09/12/18 at 07:00 Ondansetron HCl (Zofran Inj) 4 mg Q6H PRN IV NAUSEA/VOMITING; Start 09/12/18 at 07:00 Acetaminophen (Tylenol Tab) 650 mg Q6H PRN PO .PAIN 1-3 OR TEMP; Start 09/12/18 at 07:00 Acetaminophen/ Hydrocodone Bitart ([place] (5/325)) 1 tab Q6H PRN PO .PAIN 4-6; Start 09/12/18 at 07:00 Albuterol/ Ipratropium (Duoneb) 3 ml Q2H RESP THERAPY PRN HHN SHORTNESS OF BREATH; Start 09/12/18 at 07:00 Clonazepam (Klonopin) 1 mg BID PRN PO ANXIETY; Start 09/12/18 at 07:00 Pantoprazole (Protonix Tab) 40 mg AC BREAKFAST PO Last administered on 09/13/18at 06:15; Admin Dose 40 MG; Start 09/12/18 at 07:00 Vancomycin HCl (Vanco Iv Per Pharmacy) VANCOMYCIN PER PHARMACY PER PROTOCOL XX ; Start 09/12/18 at 07:00 Piperacillin Sod/ Tazobactam Sod 100 ml @ 200 mls/hr Q6H IVPB Last administered on 09/13/18at 06:15; Admin Dose 200 MLS/HR; Start 09/12/18 at 07:00 Sodium Chloride 1,000 ml @ 100 mls/hr Q10H IV Last administered on 09/12/18at 18:02; Admin Dose 100 MLS/HR; Start 09/12/18 at 07:30 Ferrous Sulfate (Ferrous Sulfate (Ec)) 325 mg TID PO Last administered on 09/12/18at 21:12; Admin Dose 325 MG; Start 09/12/18 at 09:00 Ibuprofen (Motrin) 400 mg Q6H PRN PO MILD PAIN(1-3) OR TEMP>38C; Start 09/12/18 at 11:00 Tramadol HCl (Ultram) 50 mg Q6H PRN PO MODERATE PAIN LEVEL 4-6; Start 09/12/18 at 11:00 Ferric Sodium Gluconate Complex 125 mg/Sodium Chloride 110 ml @ 110 mls/hr DAILY@1300 IVPB Last administered on 09/12/18at 18:02; Admin Dose 110 MLS/HR; Start 09/12/18 at 18:00; Stop 09/16/18 at 13:59 Vancomycin HCl 1.5 gm/Sodium Chloride 250 ml @ 83.333 mls/ hr Q12H IVPB Last administered on 09/13/18at 03:01; Admin Dose 83.333 MLS/HR; Start 09/12/18 at 16:00 Miscellaneous Information 240 mg BID PO ; Start 09/12/18 at 17:30; Status UNV Allergies: Coded Allergies: No Known Allergy (Unverified , 09/11/18) Social History Smoking Status: Never smoker Exam/Review of Systems Exam Vitals Vital Signs Date Temp Pulse Resp B/P (MAP) Pulse Ox O2 O2 Flow FiO2 Time Delivery Rate 09/13/18 99.1 100 18 104/50 96 04:00 (68) 09/12/18 Nasal 2.0 19:45 Cannula Intake and Output 09/12/18 09/12/18 09/13/18 1515:00 23:00 07:00 IntakeIntake Total 760 ml 350 ml BalanceBalance 760 ml 350 ml Constitutional: alert, oriented Eyes: nl sclera ENMT: mucosa pink and moist Respiratory: other (decreased BS at R base) Cardiovascular: regular rate and rhythm Gastrointestinal: soft, other (some RUQ pain) Extremities: other (trace edemia) Results Result Diagram: 09/11/18 2345 09/11/18 2220 Results 24hrs Laboratory Tests Test 09/12/18 10:53 09/12/18 10:54 09/12/18 17:21 Lactic Acid Level 0.7 Iron Level 15 L Total Iron Binding Capacity 236 L Percent Iron Saturation 6 L Ferritin 14.9 Carcinoembryonic Antigen Pending Creatine Kinase < 20 L < 20 L Creatine Kinase Index Creatinine Kinase MB (Mass) < 0.22 < 0.22 Troponin I < 0.012 < 0.012 Medications Medication Current Medications IV Flush (NS 3 ml) 3 ml PER PROTOCOL IV ; Start 09/12/18 at 07:00 Ondansetron HCl (Zofran Inj) 4 mg Q6H PRN IV NAUSEA/VOMITING; Start 09/12/18 at 07:00 Acetaminophen (Tylenol Tab) 650 mg Q6H PRN PO .PAIN 1-3 OR TEMP; Start 09/12/18 at 07:00 Acetaminophen/ Hydrocodone Bitart ([place] (5/325)) 1 tab Q6H PRN PO .PAIN 4-6; Start 09/12/18 at 07:00 Albuterol/ Ipratropium (Duoneb) 3 ml Q2H RESP THERAPY PRN HHN SHORTNESS OF BREATH; Start 09/12/18 at 07:00 Clonazepam (Klonopin) 1 mg BID PRN PO ANXIETY; Start 09/12/18 at 07:00 Pantoprazole (Protonix Tab) 40 mg AC BREAKFAST PO Last administered on 09/13/18at 06:15; Admin Dose 40 MG; Start 09/12/18 at 07:00 Vancomycin HCl (Vanco Iv Per Pharmacy) VANCOMYCIN PER PHARMACY PER PROTOCOL XX ; Start 09/12/18 at 07:00 Piperacillin Sod/ Tazobactam Sod 100 ml @ 200 mls/hr Q6H IVPB Last administered on 09/13/18at 06:15; Admin Dose 200 MLS/HR; Start 09/12/18 at 07:00 Sodium Chloride 1,000 ml @ 100 mls/hr Q10H IV Last administered on 09/12/18at 18:02; Admin Dose 100 MLS/HR; Start 09/12/18 at 07:30 Ferrous Sulfate (Ferrous Sulfate (Ec)) 325 mg TID PO Last administered on 09/12/18at 21:12; Admin Dose 325 MG; Start 09/12/18 at 09:00 Ibuprofen (Motrin) 400 mg Q6H PRN PO MILD PAIN(1-3) OR TEMP>38C; Start 09/12/18 at 11:00 Tramadol HCl (Ultram) 50 mg Q6H PRN PO MODERATE PAIN LEVEL 4-6; Start 09/12/18 at 11:00 Ferric Sodium Gluconate Complex 125 mg/Sodium Chloride 110 ml @ 110 mls/hr DAILY@1300 IVPB Last administered on 09/12/18at 18:02; Admin Dose 110 MLS/HR; Start 09/12/18 at 18:00; Stop 09/16/18 at 13:59 Vancomycin HCl 1.5 gm/Sodium Chloride 250 ml @ 83.333 mls/ hr Q12H IVPB Last administered on 09/13/18at 03:01; Admin Dose 83.333 MLS/HR; Start 09/12/18 at 16:00 Miscellaneous Information 240 mg BID PO ; Start 09/12/18 at 17:30; Status UNV RUPA RASHEED MD Sep 13, 2018 07:12
[2018-09-13] MEDS: FERROUS SULFATE (EC) 325 MG TAB PO SCH ×3 (09:48→22:56)
--- NOTE | 2018-09-13 09:57 | PN ---
DATE: 09/13/2018 SUBJECTIVE: The patient has no new complaints. Some cough. No shaking chills. OBJECTIVE: GENERAL: The patient is a well-developed, well-nourished female, in no acute distress. VITAL SIGNS: Temperature 99.5 orally, pulse 97 per minute and regular, respirations 18, blood pressu re is 95/50, pulse oximetry 97% on 2 liters of oxygen by nasal cannula. SKIN: Pale, but no ecchymosis, no petechiae or rashes. HEENT: Normocephalic. No evidence of trauma. Pupils equal, round, react to light and accommodation . Sclerae are nonicteric. Oral mucosa is moist without lesions. Sclera and conjunctivae are pale. Tongue is well papillated. No gingival hyperplasia. NECK: Supple. No jugular venous distention or thyroid enlargement. No carotid bruits. CHEST: Decreased breath sounds on the right side, but no rhonchi, wheezes, rales or rubs are heard. HEART: Regular sinus rhythm, no S3, S4 or murmurs. ABDOMEN: Soft, no masses or ascites. EXTREMITIES: Good range of motion. No clubbing, no edema or cyanosis. No palpable cords or Homans sign. NEUROLOGIC: Normal. LABORATORY DATA: Iron studies done on 09/12/2018 demonstrated serum iron of 59, binding capacity 236 , percent saturation 6% and a ferritin of 14.9. ASSESSMENT: 1. Anemia due to iron deficiency. 2. Multiple sclerosis. 3. History of deep vein thrombosis. 4. Right pulmonary infiltrate. DISCUSSION: This patient's iron deficiency is most likely due to menorrhagia. This is complicated b y the fact that the patient is also on apixaban for anticoagulation for previous thromboembolic event . Based on patient's admission, hemoglobin and weight, she will require approximately 2000 mg of elemen shawn iron in order to replete her iron stores. As mentioned, this is most likely due to menorrhagia. The iron deficiency is most likely due to shanel rrhagia. The patient has been seen in the past by HUMAN RESOURCES BENEFITS SPECIALIST and hysterectomy was recommended. We would harmon ggest a HUM[employer] RESOURCES BENEFITS SPECIALIST evaluation again and would agree with a hysterectomy once the pulmonary issue is resolved . The CT angiogram of the chest does show large rounded area of consolidation in the right middle lobe, as well as an enlarged hilar nodes and small right pleural effusion. On CT scan of the abdomen and pelvis demonstrated right middle lobe mass, which measures 2.6 x 2.8 cm, which is possibly necrotic. I feel that it is most likely that pulmonary process represents pneumonia. Certainly the leukocytosi s suggests an infectious process. One cannot rule out an postobstructive pneumonia, however. We would continue the patient on iron replacement therapy as well as antibiotics as outlined by Dr. Angelito schmitt. Dictated By: DONAVON ANGULO MD SR/NTS Conf#: [id number] DID#: [id number] CC: RUPA RASHEED MD; CLEO FARRIS MD;*EndCC*
--- NOTE | 2018-09-13 10:06 | PN ---
Date/Time of Note Date/Time of Note DATE: 09/13/18 TIME: 09:55 Assessment/Plan VTE Prophylaxis Risk score (from Ns)>0 risk: 5 SCD applied (from Ns): Yes Pharmacological prophylaxis: NA/contraindicated Pharm contraindication: bleeding Lines/Catheters IV C[facility]ter Type (from [facility] Peripheral IV Urinary Cath still in place: No Assessment/Plan Hospital Course SUBJECTIVE:having periods w/slightly heavy flow. low grade fevers. OBJECTIVE: Vital signs-see below PHYSICAL EXAM: Constitutional: Well-developed, adequately built, no acute distress. Psych: nl mood/affect, no complaints Head: atraumatic, normocephalic Eyes: nl conjunctiva, nl sclera ENMT: mucosa pink and moist, nl external ears & nose Neck: non-tender, supple Respiratory: rhonchi RUL. Diminished bibasilar, normal air movement Cardiovascular: nl pulses, regular rate and rhythm Gastrointestinal: non-tender, soft, bowel sounds active in all 4 quadrants. Musculoskeletal/extremities: nl extremities to inspection, motor strength equal bilaterally, no focal deficit. Normal pulses,no cyanosis, no edema. Neurological: Alert oriented 3,nl speech, nl strength Skin: nl turgor : +Vag bleed ASSESSMENT/PLAN:53-year-old female with a history of multiple sclerosis, DVT which was treated back in 2017 with resolution, GI bleed, treated with 5-day duration of right-sided chest pain, myalgias, cough and fevers, found to have sepsis w/PNA and a possible lung abscess. 1. Sepsis -Most likely source: Pneumonia w/lung abscess -Improving -f/u sputum CS -Cont. Zosyn/vancomycin- follow id recs -f/u cultures 2.Right sided pneumonia w/ RML Lung abscess -Non-drainable -Cont.broad spectrum abx -f/u Pulmonary/ID recs 3. Acute on chronic iron deficient anemia. Acute anemia is likely acute blood loss Anemia with menorrhagia 2/2 uterine fibroids. -HH dropped-recommend transfusing 2 units PRBC in light of dysfunctional uterine bleed currently. -CLINICAL MARKETING MANAGER consult with Dr. Haily garcia. In light of sepsis/infectious process, she is probably not a candidate for any OB surgical intervention. However, she may be a candidate for hormonal therapy such as Provera. -Meanwhile, patient is getting him workup for iron deficient anemia w/events traffic controller, on IV iron. -Pending stool OB. 4. Uterine fibroids. -As mentioned above, patient with menorrhagia which has been going on for a while. She denied being on any hormonal treatment or having any CLINICAL MARKETING MANAGER follow- up on this. Most likely she would need BONNIE which can be deferred for outpatient follow-up. -Currently on her periods started yesterday- heavy flow. Follow-up CLINICAL MARKETING MANAGER recommendations. 5. History of multiple sclerosis, electric wheelchair dependent. - Continue home med 6.Asymptomatic Cholelithiasis -monitor. 7.Rt sided reproducible chest pain/ Myalgia, likely from acute inflammatory/infectious process. -Able. ACS ruled out. Continue PRN NSAIDs. DVT prophylaxis: SCDs PUD prophylaxis: Not indicated CODE STATUS: Full code Diet: Regular diet. Disposition: Continue current management. Follow-up cultures. Follow-up consultants recommendations. Patient was seen in collaboration with Dr. Cancino. Result Diagram: 09/11/18 0697 09/11/18 2220 Results 24hrs Laboratory Tests Test 09/12/18 10:53 09/12/18 10:54 09/12/18 17:21 Lactic Acid Level 0.7 Iron Level 15 L Total Iron Binding Capacity 236 L Percent Iron Saturation 6 L Ferritin 14.9 Carcinoembryonic Antigen Pending Creatine Kinase < 20 L < 20 L Creatine Kinase Index Creatinine Kinase MB (Mass) < 0.22 < 0.22 Troponin I < 0.012 < 0.012 Exam/Review of Systems Exam Vitals Vital Signs Date Temp Pulse Resp B/P (MAP) Pulse Ox O2 O2 Flow FiO2 Time Delivery Rate 09/13/18 Nasal 2.0 08:55 Cannula 09/13/18 93 08:04 09/13/18 99.5 18 95/50 (65) 97 07:23 Intake and Output 09/12/18 09/12/18 09/13/18 1414:59 22:59 06:59 IntakeIntake Total 760 ml 350 ml BalanceBalance 760 ml 350 ml Results Results 24hrs Laboratory Tests Test 09/12/18 10:53 09/12/18 10:54 09/12/18 17:21 Lactic Acid Level 0.7 Iron Level 15 L Total Iron Binding Capacity 236 L Percent Iron Saturation 6 L Ferritin 14.9 Carcinoembryonic Antigen Pending Creatine Kinase < 20 L < 20 L Creatine Kinase Index Creatinine Kinase MB (Mass) < 0.22 < 0.22 Troponin I < 0.012 < 0.012 Medications Medication Current Medications IV Flush (NS 3 ml) 3 ml PER PROTOCOL IV ; Start 09/12/18 at 07:00 Ondansetron HCl (Zofran Inj) 4 mg Q6H PRN IV NAUSEA/VOMITING; Start 09/12/18 at 07:00 Acetaminophen (Tylenol Tab) 650 mg Q6H PRN PO .PAIN 1-3 OR TEMP; Start 09/12/18 at 07:00 Acetaminophen/ Hydrocodone Bitart ([place] (5/325)) 1 tab Q6H PRN PO .PAIN 4-6; Start 09/12/18 at 07:00 Albuterol/ Ipratropium (Duoneb) 3 ml Q2H RESP THERAPY PRN HHN SHORTNESS OF BREATH; Start 09/12/18 at 07:00 Clonazepam (Klonopin) 1 mg BID PRN PO ANXIETY; Start 09/12/18 at 07:00 Pantoprazole (Protonix Tab) 40 mg AC BREAKFAST PO Last administered on at 06:15; Admin Dose 40 MG; Start 09/12/18 at 07:00 Vancomycin HCl (Vanco Iv Per Pharmacy) VANCOMYCIN PER PHARMACY PER PROTOCOL XX ; Start 09/12/18 at 07:00 Piperacillin Sod/ Tazobactam Sod 100 ml @ 200 mls/hr Q6H IVPB Last administered on 09/13/18at 06:15; Admin Dose 200 MLS/HR; Start 09/12/18 at 07:00 Sodium Chloride 1,000 ml @ 100 mls/hr Q10H IV Last administered on 09/12/18at 18:02; Admin Dose 100 MLS/HR; Start 09/12/18 at 07:30 Ferrous Sulfate (Ferrous Sulfate (Ec)) 325 mg TID PO Last administered on 09/13/18at 09:48; Admin Dose 325 MG; Start 09/12/18 at 09:00 Ibuprofen (Motrin) 400 mg Q6H PRN PO MILD PAIN(1-3) OR TEMP>38C; Start 09/12/18 at 11:00 Tramadol HCl (Ultram) 50 mg Q6H PRN PO MODERATE PAIN LEVEL 4-6; Start 09/12/18 at 11:00 Ferric Sodium Gluconate Complex 125 mg/Sodium Chloride 110 ml @ 110 mls/hr DAILY@1300 IVPB Last administered on 09/12/18at 18:02; Admin Dose 110 MLS/HR; Start 09/12/18 at 18:00; Stop 09/16/18 at 13:59 Vancomycin HCl 1.5 gm/Sodium Chloride 250 ml @ 83.333 mls/ hr Q12H IVPB Last administered on 09/13/18at 03:01; Admin Dose 83.333 MLS/HR; Start 09/12/18 at 16:00 Miscellaneous Information 240 mg BID PO ; Start 09/12/18 at 17:30; Status ENZO POP NP Sep 13, 2018 10:06
[2018-09-13] MEDS ORDERED: SOD CHLORIDE 0.9% 250 ML IV* ONE (10:36)
--- NOTE | 2018-09-13 12:31 | CONS ---
Consult Date/Type/Reason Admit Date/Time Sep 12, 2018 at 06:02 Initial Consult Date 09/13/18 Type of Consult Pulmonary Requesting Provider: CLEO FARRIS MD Date/Time of Note DATE: 09/13/18 TIME: 12:30 Subjective Feels better. Still with some anterior chest wall pain. Objective Vital Signs Date Temp Pulse Resp B/P (MAP) Pulse Ox O2 O2 Flow FiO2 Time Delivery Rate 09/13/18 101 12:03 09/13/18 99.4 18 98/60 (73) 98 11:50 09/13/18 Nasal 2.0 08:55 Cannula Intake and Output 09/12/18 09/12/18 09/13/18 1515:00 23:00 07:00 IntakeIntake Total 760 ml 350 ml BalanceBalance 760 ml 350 ml Exam GENERAL: Well-nourished well-developed lady comfortable at rest VITAL SIGNS: per chart NECK: Supple. No JVD or lymphadenopathy. CARDIAC EXAM: S1, S2. No added sounds or murmurs. CHEST: clear bilaterally, No added sounds, rales or wheezes ABDOMEN: Soft, nontender. No guarding or rebound. EXTREMITIES: No cyanosis, clubbing or edema. NEUROLOGIC: Generalized weakness. No focal deficits. Results/Medications Result Diagram: 09/13/18 0958 09/13/18 0958 Results 24 hrs Laboratory Tests Test 09/12/18 17:21 09/13/18 09:58 Creatine Kinase < 20 L Creatine Kinase Index Creatinine Kinase MB (Mass) < 0.22 Troponin I < 0.012 White Blood Count 14.4 #H Red Blood Count 3.10 L Hemoglobin 6.1 *L Hematocrit 21.9 L Mean Corpuscular Volume 70.6 L Mean Corpuscular Hemoglobin 19.7 L Mean Corpuscular Hemoglobin Concent 27.9 L Red Cell Distribution Width 16.6 H Platelet Count 580 H Mean Platelet Volume 10.2 Immature Granulocytes % 0.900 H Neutrophils % 80.9 H Segmented Neutrophils % (Manual) 78 H Band Neutrophils % (Manual) 3 Lymphocytes % 8.4 L Lymphocytes % (Manual) 8 L Reactive Lymphocytes % (Manual) 1 H Monocytes % 7.9 Monocytes % (Manual) 8 Eosinophils % 1.8 Eosinophils % (Manual) 2 Basophils % 0.1 Nucleated Red Blood Cells % 0.0 Immature Granulocytes # 0.130 H Neutrophils # 11.6 H Neutrophils # (Manual) 11.3 H Band Neutrophils # 0.4 Lymphocytes (Manual) 1.1 Lymphocytes # 1.2 Reactive Lymphocytes # 0.1 H Monocytes # 1.1 H Monocytes # (Manual) 1.1 H Eosinophils # 0.3 Basophils # 0.0 Nucleated Red Blood Cells # 0.0 Pathologist Review (Hematology) YES Platelet Estimate INCREASED Giant Platelets 1 H Polychromasia 3+ Hypochromasia 3+ Poikilocytosis 1+ Anisocytosis 3+ Microcytosis 3+ Ovalocytes 1+ Sodium Level 141 Potassium Level 3.4 L Chloride Level 104 Carbon Dioxide Level 26 Anion Gap 11 Blood Urea Nitrogen 6 L Creatinine 0.65 Est Glomerular Filtrat Rate mL/min > 60 Glucose Level 165 Calcium Level 8.4 Medications Current Medications IV Flush (NS 3 ml) 3 ml PER PROTOCOL IV ; Start 09/12/18 at 07:00 Ondansetron HCl (Zofran Inj) 4 mg Q6H PRN IV NAUSEA/VOMITING; Start 09/12/18 at 07:00 Acetaminophen (Tylenol Tab) 650 mg Q6H PRN PO .PAIN 1-3 OR TEMP; Start 09/12/18 at 07:00 Acetaminophen/ Hydrocodone Bitart ([place] (5/325)) 1 tab Q6H PRN PO .PAIN 4-6; Start 09/12/18 at 07:00 Albuterol/ Ipratropium (Duoneb) 3 ml Q2H RESP THERAPY PRN HHN SHORTNESS OF [place] ATH; Start 09/12/18 at 07:00 Clonazepam (Klonopin) 1 mg BID PRN PO ANXIETY; Start 09/12/18 at 07:00 Pantoprazole (Protonix Tab) 40 mg AC BREAKFAST PO Last administered on 09/13/18at 06:15; Admin Dose 40 MG; Start 09/12/18 at 07:00 Vancomycin HCl (Vanco Iv Per Pharmacy) VANCOMYCIN PER PHARMACY PER PROTOCOL XX ; Start 09/12/18 at 07:00 Piperacillin Sod/ Tazobactam Sod 100 ml @ 200 mls/hr Q6H IVPB Last administered on 09/13/18at 06:15; Admin Dose 200 MLS/HR; Start 09/12/18 at 07:00 Sodium Chloride 1,000 ml @ 100 mls/hr Q10H IV Last administered on 09/13/18at 12:12; Admin Dose 100 MLS/HR; Start 09/12/18 at 07:30 Ferrous Sulfate (Ferrous Sulfate (Ec)) 325 mg TID PO Last administered on at 09:48; Admin Dose 325 MG; Start 09/12/18 at 09:00 Ibuprofen (Motrin) 400 mg Q6H PRN PO MILD PAIN(1-3) OR TEMP>38C; Start 09/12/18 at 11:00 Tramadol HCl (Ultram) 50 mg Q6H PRN PO MODERATE PAIN LEVEL 4-6; Start 09/12/18 at 11:00 Ferric Sodium Gluconate Complex 125 mg/Sodium Chloride 110 ml @ 110 mls/hr DAILY@1300 IVPB Last administered on 09/12/18at 18:02; Admin Dose 110 MLS/HR; Start 09/12/18 at 18:00; Stop 09/16/18 at 13:59 Vancomycin HCl 1.5 gm/Sodium Chloride 250 ml @ 83.333 mls/ hr Q12H IVPB Last administered on 09/13/18at 03:01; Admin Dose 83.333 MLS/HR; Start 09/12/18 at 16:00 Miscellaneous Information 240 mg BID PO ; Start 09/12/18 at 17:30; Status UNV Assessment/Plan Hospital Course (Demo Recall) Assessment 1. History of menorrhagia and iron deficiency anemia 2. History of thromboembolic disease on anticoagulation 3. Necrotic right middle lobe mass versus pneumonia Plan 1. Consider transfusion of packed red blood cells keep hemoglobin greater than 7 2. Iron replacement 3. Antibiotics per infectious diseases 4. Low threshold for CT-guided biopsy of necrotic mass to exclude malignant process. Will discuss with team. CECELIA BALL MD, [facility] Sep 13, 2018 12:31
[2018-09-13] MEDS: SOD FERRIC GLUC COMPLX 125 MG in SOD CHLORIDE 0.9% 100 ML IVPB SCH (13:39)
[2018-09-13] MEDS ORDERED: LIDOCAINE 1% (MPF) 5 ML VIAL SC ONE (16:30)
[2018-09-13] MEDS: ONDANSETRON 4 MG INJ IV PRN (17:54)
[2018-09-13] MEDS: LEVOFLOXACIN 750MG/D5W (PMX) 150 ML IVPB SCH (17:54)
[2018-09-13] MEDS: BALSAM PERU/CASTOR OIL 60 GM TUBE TOP SCH (22:57)
[2018-09-14] VITALS (10 sets, daily range): BP systolic 116–135; BP diastolic 57–67; PULSE 85–96; RESP 16–18
[2018-09-14] MEDS: PIPER-TAZO 3.375 GM IV (PMX) 100 ML IVPB SCH ×4 (03:11→18:14)
--- NOTE | 2018-09-14 06:31 | CONS ---
Assessment/Plan Assessment/Plan Hospital Course (Demo Recall) 1)RML pneumonia with possible abscess the area of question for abscess is small and likely antibiotics alone will be sufficient CT chest did not suggest PE the development of possible abscess suggests aspiration respiratory cx was ordered but have asked nurse to place sputum container by her bedside and encourage daughter to collect I will also order nasal for MRSA continue with vanco/zosyn/levo at present 09/14 - sputum cx is pending but according to patient it was collected improved symptoms and WBC continue with vanco/zosyn/levaquin at present but will re-evaluate when more micro lab results are in 2)MS 3) hx of DVT 4) Fe deficiency anemia now on IV iron 09/14 - pt pelvic u/s showed fibroids but pt denies vaginal bleeding except during her menstrual cycle for 3-4 days Consultation Date/Type/Reason Admit Date/Time Sep 12, 2018 at 06:02 Initial Consult Date 09/13/18 Type of Consult IS Requesting Provider: CLEO FARRIS MD Date/Time of Note DATE: 09/14/18 TIME: 06:27 24 HR Interval Summary Free Text/Dictation pt states chest/mid abd pain is improved no current N but she vomited last night cough is less but she was able to bring up some phlegm and states it was collected for lab no BM's Exam/Review of Systems Exam Vitals Vital Signs Date Temp Pulse Resp B/P (MAP) Pulse Ox O2 O2 Flow FiO2 Time Delivery Rate 09/14/18 98.4 87 18 117/57 97 04:00 (77) 09/13/18 Nasal 2.0 21:50 Cannula Intake and Output 09/13/18 09/13/18 09/14/18 1515:00 23:00 07:00 IntakeIntake Total 560 ml 1700 ml BalanceBalance 560 ml 1700 ml Constitutional: alert, oriented ENMT: mucosa pink and moist Respiratory: clear to auscultation Cardiovascular: regular rate and rhythm Gastrointestinal: soft, non-tender Results Result Diagram: 09/13/1858 09/13/18 0958 Results 24hrs Laboratory Tests Test 09/13/18 09:58 09/14/18 03:20 09/14/18 05:24 White Blood Count 14.4 #H Pending Red Blood Count 3.10 L Pending Hemoglobin 6.1 *L Pending Hematocrit 21.9 L Pending Mean Corpuscular Volume 70.6 L Pending Mean Corpuscular Hemoglobin 19.7 L Pending Mean Corpuscular Hemoglobin Concent 27.9 L Pending Red Cell Distribution Width 16.6 H Pending Platelet Count 580 H Pending Mean Platelet Volume 10.2 Pending Immature Granulocytes % 0.900 H Neutrophils % 80.9 H Segmented Neutrophils % (Manual) 78 H Band Neutrophils % (Manual) 3 Lymphocytes % 8.4 L Lymphocytes % (Manual) 8 L Reactive Lymphocytes % (Manual) 1 H Monocytes % 7.9 Monocytes % (Manual) 8 Eosinophils % 1.8 Eosinophils % (Manual) 2 Basophils % 0.1 Nucleated Red Blood Cells % 0.0 Immature Granulocytes # 0.130 H Neutrophils # 11.6 H Neutrophils # (Manual) 11.3 H Band Neutrophils # 0.4 Lymphocytes (Manual) 1.1 Lymphocytes # 1.2 Reactive Lymphocytes # 0.1 H Monocytes # 1.1 H Monocytes # (Manual) 1.1 H Eosinophils # 0.3 Basophils # 0.0 Nucleated Red Blood Cells # 0.0 Pathologist Review (Hematology) YES Platelet Estimate INCREASED Giant Platelets 1 H Polychromasia 3+ Hypochromasia 3+ Poikilocytosis 1+ Anisocytosis 3+ Microcytosis 3+ Ovalocytes 1+ Sodium Level 141 Potassium Level 3.4 L Chloride Level 104 Carbon Dioxide Level 26 Anion Gap 11 Blood Urea Nitrogen 6 L Creatinine 0.65 Est Glomerular Filtrat Rate mL/min > 60 Glucose Level 165 Calcium Level 8.4 Vancomycin Level Trough 19.3 Medications Medication Current Medications IV Flush (NS 3 ml) 3 ml PER PROTOCOL IV ; Start 09/12/18 at 07:00 Ondansetron HCl (Zofran Inj) 4 mg Q6H PRN IV NAUSEA/VOMITING Last administered on 09/13/18at 17:54; Admin Dose 4 MG; Start 09/12/18 at 07:00 Acetaminophen (Tylenol Tab) 650 mg Q6H PRN PO .PAIN 1-3 OR TEMP; Start 09/12/18 at 07:00 Acetaminophen/ Hydrocodone Bitart ([place] (5/325)) 1 tab Q6H PRN PO .PAIN 4-6; Start 09/12/18 at 07:00 Albuterol/ Ipratropium (Duoneb) 3 ml Q2H RESP THERAPY PRN HHN SHORTNESS OF BREATH; Start 09/12/18 at 07:00 Clonazepam (Klonopin) 1 mg BID PRN PO ANXIETY; Start 09/12/18 at 07:00 Pantoprazole (Protonix Tab) 40 mg AC BREAKFAST PO Last administered on 09/13/18at 06:15; Admin Dose 40 MG; Start 09/12/18 at 07:00 Vancomycin HCl (Vanco Iv Per Pharmacy) VANCOMYCIN PER PHARMACY PER PROTOCOL XX ; Start 09/12/18 at 07:00 Piperacillin Sod/ Tazobactam Sod 100 ml @ 200 mls/hr Q6H IVPB Last administered on 09/14/18at 03:11; Admin Dose 200 MLS/HR; Start 09/12/18 at 07:00 Sodium Chloride 1,000 ml @ 100 mls/hr Q10H IV Last administered on 09/13/18at 12:12; Admin Dose 100 MLS/HR; Start 09/12/18 at 07:30 Ferrous Sulfate (Ferrous Sulfate (Ec)) 325 mg TID PO Last administered on 09/13/18at 22:56; Admin Dose 325 MG; Start 09/12/18 at 09:00 Ibuprofen (Motrin) 400 mg Q6H PRN PO MILD PAIN(1-3) OR TEMP>38C; Start 09/12/18 at 11:00 Tramadol HCl (Ultram) 50 mg Q6H PRN PO MODERATE PAIN LEVEL 4-6; Start 09/12/18 at 11:00 Ferric Sodium Gluconate Complex 125 mg/Sodium Chloride 110 ml @ 110 mls/hr DAILY@1300 IVPB Last administered on 09/13/18at 13:39; Admin Dose 110 MLS/HR; Start 09/12/18 at 18:00; Stop 09/16/18 at 13:59 Miscellaneous Information 240 mg BID PO ; Start 09/12/18 at 17:30; Status UNV Levofloxacin/ Dextrose 150 ml @ 100 mls/hr Q24H IVPB Last administered on 09/13/18at 17:54; Admin Dose 100 MLS/HR; Start 09/13/18 at 17:00 Vancomycin HCl 250 ml @ 125 mls/hr Q12H IVPB ; Start 09/14/18 at 08:00 RUPA RASHEED MD Sep 14, 2018 06:31
[2018-09-14] MEDS: PANTOPRAZOLE (EC) 40 MG TAB PO SCH (06:44)
[2018-09-14] MEDS: BALSAM PERU/CASTOR OIL 60 GM TUBE TOP SCH ×2 (08:06→20:35)
[2018-09-14] MEDS: VANCOMYCIN 1 GM 250 ML IVPB SCH ×2 (08:09→20:34)
[2018-09-14] MEDS: FERROUS SULFATE (EC) 325 MG TAB PO SCH ×3 (08:09→20:34)
[2018-09-14] MEDS: SOD CHLORIDE 0.9% 1,000 ML IV SCH (09:30)
--- NOTE | 2018-09-14 10:31 | CONS ---
Assessment/Plan Assessment/Plan Assessment/Plan (Daily) Assessment and recommendations; 1. Patient with history of multiple sclerosis and functional quadriplegia admitted for right middle lobe necrotizing pneumonia, currently on appropriate antimicrobial regimen. 2. Prior history of lower extremity DVT. Continue current supportive care. Serologies pending for Coccidiodomycosis. Obtain follow-up chest x-ray in 48 hours. Consultation Date/Type/Reason Admit Date/Time Sep 12, 2018 at 06:02 Initial Consult Date 09/13/18 Type of Consult Pulmonary pulmonary consult requested for evaluation of pneumonia. Patient is a pleasant 53-year-old lady who came into the hospital with a 2-day history of fever, coughing and chest congestion. Upon evaluation chest x-ray was done which is showing right middle lobe pneumonia. Patient also subsequently had a CT of the chest done which is showing necrotizing pneumonia involving the right middle lobe, patient status post biopsy of the infiltrate. Likely lung abscess. By the time I saw her in ER patient appeared very comfortable and was not in any distress whatsoever. Past medical history; 1. multiple sclerosis with essential quadriplegia, patient is bedridden. 2. History of left lower extremity DVT. Medications; reviewed. Allergies; none. Social history; noncontributory. Family history; patient is , has a supportive family. Occupational history; patient is on disability. Review of systems; denies any headache, seizures, chest pain, complains of scant cough with scant sputum production. Had low-grade fever. Denies any abdominal pain, nausea vomiting. Denies any melena hematochezia or diarrhea. Any urinary symptoms. Any orthopnea. Patient denies any dysphagia. General exam; middle-aged female, awake and alert. Currently in no distress. Requesting Provider: CLEO FARRIS MD Date/Time of Note DATE: 09/14/18 TIME: 10:29 24 HR Interval Summary Free Text/Dictation Patient's condition is stable. Denies any shortness of breath, chest pain, complains of scant cough. Denies any hemoptysis or sputum production. Any fever. General exam; middle-aged female, awake alert, currently no distress. Exam/Review of Systems Exam Vitals Vital Signs Date Temp Pulse Resp B/P (MAP) Pulse Ox O2 O2 Flow FiO2 Time Delivery Rate 09/14/18 85 08:14 09/14/18 98.7 16 121/57 98 07:24 (78) 09/13/18 Nasal 2.0 21:50 Cannula Intake and Output 09/13/18 09/13/18 09/14/18 1515:00 23:00 07:00 IntakeIntake Total 560 ml 1800 ml 100 ml BalanceBalance 560 ml 1800 ml 100 ml Exam H EENT exam; supple neck, no JVD. No lymphadenopathy. Midline trachea. No thyromegaly. Pharynx is clear. Patient has fair dentition. No neck masses. Chest exam; clear to auscultation. S1-S2 audible, no murmurs. Regular rhythm. Abdomen exam; soft, no organomegaly. Bowel sounds audible. Extremity exam; no peripheral edema. NATURAL RESOURCE SPECIALIST exam; she is awake alert exhibiting stable quadriplegia. Results Result Diagram: 09/14/18 0647 09/14/18 0524 Results 24hrs Laboratory Tests Test 09/14/18 03:20 09/14/18 05:24 09/14/18 06:47 Vancomycin Level Trough 19.3 Sodium Level 141 Potassium Level 3.7 Chloride Level 108 Carbon Dioxide Level 24 Anion Gap 9 Blood Urea Nitrogen 8 Creatinine 1.06 H Est Glomerular Filtrat Rate mL/min 55 L Glucose Level 113 # Calcium Level 8.7 Carcinoembryonic Antigen 3.4 CA 125 Antigen 24.3 White Blood Count 15.4 H Red Blood Count 4.17 #L Hemoglobin 9.5 #L Hematocrit 31.5 #L Mean Corpuscular Volume 75.5 L Mean Corpuscular Hemoglobin 22.8 L Mean Corpuscular Hemoglobin Concent 30.2 L Red Cell Distribution Width 19.5 H Platelet Count 590 H Mean Platelet Volume 10.5 H Immature Granulocytes % 1.800 H Neutrophils % 79.0 H Lymphocytes % 9.0 L Monocytes % 8.4 Eosinophils % 1.3 Basophils % 0.5 Nucleated Red Blood Cells % 0.6 H Immature Granulocytes # 0.270 H Neutrophils # 12.2 H Lymphocytes # 1.4 Monocytes # 1.3 H Eosinophils # 0.2 Basophils # 0.1 Nucleated Red Blood Cells # 0.1 H Medications Medication Current Medications IV Flush (NS 3 ml) 3 ml PER PROTOCOL IV ; Start 09/12/18 at 07:00 Ondansetron HCl (Zofran Inj) 4 mg Q6H PRN IV NAUSEA/VOMITING Last administered on 09/13/18at 17:54; Admin Dose 4 MG; Start 09/12/18 at 07:00 Acetaminophen (Tylenol Tab) 650 mg Q6H PRN PO .PAIN 1-3 OR TEMP; Start 09/12/18 at 07:00 Acetaminophen/ Hydrocodone Bitart ([place] (5/325)) 1 tab Q6H PRN PO .PAIN 4-6; Start 09/12/18 at 07:00 Albuterol/ Ipratropium (Duoneb) 3 ml Q2H RESP THERAPY PRN HHN SHORTNESS OF BREATH; Start 09/12/18 at 07:00 Clonazepam (Klonopin) 1 mg BID PRN PO ANXIETY; Start 09/12/18 at 07:00 Pantoprazole (Protonix Tab) 40 mg AC BREAKFAST PO Last administered on 09/14/18 at 06:44; Admin Dose 40 MG; Start 09/12/18 at 07:00 Vancomycin HCl (Vanco Iv Per Pharmacy) VANCOMYCIN PER PHARMACY PER PROTOCOL XX ; Start 09/12/18 at 07:00 Piperacillin Sod/ Tazobactam Sod 100 ml @ 200 mls/hr Q6H IVPB Last administered on 09/14/18at 06:44; Admin Dose 200 MLS/HR; Start 09/12/18 at 07:00 Sodium Chloride 1,000 ml @ 100 mls/hr Q10H IV Last administered on 09/13/18at 12:12; Admin Dose 100 MLS/HR; Start 09/12/18 at 07:30 Ferrous Sulfate (Ferrous Sulfate (Ec)) 325 mg TID PO Last administered on 09/14/18at 08:09; Admin Dose 325 MG; Start 09/12/18 at 09:00 Ibuprofen (Motrin) 400 mg Q6H PRN PO MILD PAIN(1-3) OR TEMP>38C; Start 09/12/18 at 11:00 Tramadol HCl (Ultram) 50 mg Q6H PRN PO MODERATE PAIN LEVEL 4-6; Start 09/12/18 at 11:00 Ferric Sodium Gluconate Complex 125 mg/Sodium Chloride 110 ml @ 110 mls/hr DAILY@1300 IVPB Last administered on 09/13/18at 13:39; Admin Dose 110 MLS/HR; Start 09/12/18 at 18:00; Stop 09/16/18 at 13:59 Miscellaneous Information 240 mg BID PO ; Start 09/12/18 at 17:30; Status UNV Levofloxacin/ Dextrose 150 ml @ 100 mls/hr Q24H IVPB Last administered on 09/13/18at 17:54; Admin Dose 100 MLS/HR; Start 09/13/18 at 17:00 Vancomycin HCl 250 ml @ 125 mls/hr Q12H IVPB Last administered on 09/14/18at 08:09; Admin Dose 125 MLS/HR; Start 09/14/18 at 08:00 HIREN BOOKER Sep 14, 2018 10:31
[2018-09-14] MEDS: [UNRECOGNIZED DRUG - REMARK] XX SCH ×2 (12:30→20:00)
[2018-09-14] MEDS: SOD FERRIC GLUC COMPLX 125 MG in SOD CHLORIDE 0.9% 100 ML IVPB SCH (12:59)
--- NOTE | 2018-09-14 13:18 | PN ---
Date/Time of Note Date/Time of Note DATE: 09/14/18 TIME: 13:16 Assessment/Plan VTE Prophylaxis Risk score (from [facility] [place] risk: 5 SCD applied (from [facility] [place] Yes SCD contraindicated: other (External quadriplegia) Pharmacological prophylaxis: heparin Lines/Catheters IV Catheter Type (from [facility]): Peripheral IV Urinary Cath still in place: No Assessment/Plan Problems: (1) Right middle lobe pneumonia Status: Acute Comment: May actually be an abscess and she is on aggressive antibiotic therapy. Pulmonary infectious disease of recommended treatment with medications and following this. If it does show improvement they will be wonderful if it does not show improvement Garth need to set up for CT-guided needle biopsy. Qualifiers: Pneumonia type: due to unspecified organism Qualified Codes: J18.1 - Lobar pneumonia, unspecified organism (2) Functional quadriplegia secondary to multiple sclerosis Status: Chronic Comment: Noted and will do all supportive care (3) Multiple sclerosis Status: Chronic Comment: Maintain on medications (4) Cholelithiasis Status: Chronic Comment: Noted. Qualifiers: Cholelithiasis location: gallbladder Cholecystitis presence: without cholecystitis Biliary obstruction: without biliary obstruction Qualified Codes: K80.20 - Calculus of gallbladder without cholecystitis without obstruction (5) Anemia Status: Acute Comment: Achieving parenteral iron at this time Qualifiers: Anemia type: iron deficiency Iron deficiency anemia type: chronic blood loss Qualified Codes: D50.0 - Iron deficiency anemia secondary to blood loss (chronic) Result Diagram: 09/14/18 0647 09/14/18 0524 Results 24hrs Laboratory Tests Test 09/14/18 03:20 09/14/18 05:24 09/14/18 06:47 Vancomycin Level Trough 19.3 Sodium Level 141 Potassium Level 3.7 Chloride Level 108 Carbon Dioxide Level 24 Anion Gap 9 Blood Urea Nitrogen 8 Creatinine 1.06 H Est Glomerular Filtrat Rate mL/min 55 L Glucose Level 113 # Calcium Level 8.7 Carcinoembryonic Antigen 3.4 CA 125 Antigen 24.3 White Blood Count 15.4 H Red Blood Count 4.17 #L Hemoglobin 9.5 #L Hematocrit 31.5 #L Mean Corpuscular Volume 75.5 L Mean Corpuscular Hemoglobin 22.8 L Mean Corpuscular Hemoglobin Concent 30.2 L Red Cell Distribution Width 19.5 H Platelet Count 590 H Mean Platelet Volume 10.5 H Immature Granulocytes % 1.800 H Neutrophils % 79.0 H Lymphocytes % 9.0 L Monocytes % 8.4 Eosinophils % 1.3 Basophils % 0.5 Nucleated Red Blood Cells % 0.6 H Immature Granulocytes # 0.270 H Neutrophils # 12.2 H Lymphocytes # 1.4 Monocytes # 1.3 H Eosinophils # 0.2 Basophils # 0.1 Nucleated Red Blood Cells # 0.1 H Subjective 24 Hr Interval Summary Free Text/Dictation Patient reports she is feeling a little bit better today. Constitutional: no complaints (No fevers chills or sweats) Respiratory: no complaints (Ports no cough or shortness of breath) Cardiovascular: chest pain Gastrointestinal: no complaints Genitourinary: no complaints Exam/Review of Systems Exam Vitals Vital Signs Date Temp Pulse Resp B/P (MAP) Pulse Ox O2 O2 Flow FiO2 Time Delivery Rate 09/14/18 85 12:02 09/14/18 97.9 16 116/59 96 11:08 (78) 09/14/18 Nasal 2.0 07:45 Cannula Intake and Output 09/13/18 09/13/18 09/14/18 1515:00 23:00 07:00 IntakeIntake Total 560 ml 1800 ml 100 ml BalanceBalance 560 ml 1800 ml 100 ml Constitutional: alert, oriented Respiratory: clear to auscultation, normal air movement, other (Some right base dullness) Cardiovascular: regular rate and rhythm, nl pulses Gastrointestinal: soft, nl liver, spleen, non-tender Results Results 24hrs Laboratory Tests Test 09/14/18 03:20 09/14/18 05:24 09/14/18 06:47 Vancomycin Level Trough 19.3 Sodium Level 141 Potassium Level 3.7 Chloride Level 108 Carbon Dioxide Level 24 Anion Gap 9 Blood Urea Nitrogen 8 Creatinine 1.06 H Est Glomerular Filtrat Rate mL/min 55 L Glucose Level 113 # Calcium Level 8.7 Carcinoembryonic Antigen 3.4 CA 125 Antigen 24.3 White Blood Count 15.4 H Red Blood Count 4.17 #L Hemoglobin 9.5 #L Hematocrit 31.5 #L Mean Corpuscular Volume 75.5 L Mean Corpuscular Hemoglobin 22.8 L Mean Corpuscular Hemoglobin Concent 30.2 L Red Cell Distribution Width 19.5 H Platelet Count 590 H Mean Platelet Volume 10.5 H Immature Granulocytes % 1.800 H Neutrophils % 79.0 H Lymphocytes % 9.0 L Monocytes % 8.4 Eosinophils % 1.3 Basophils % 0.5 Nucleated Red Blood Cells % 0.6 H Immature Granulocytes # 0.270 H Neutrophils # 12.2 H Lymphocytes # 1.4 Monocytes # 1.3 H Eosinophils # 0.2 Basophils # 0.1 Nucleated Red Blood Cells # 0.1 H Medications Medication Current Medications IV Flush (NS 3 ml) 3 ml PER PROTOCOL IV ; Start 09/12/18 at 07:00 Ondansetron HCl (Zofran Inj) 4 mg Q6H PRN IV NAUSEA/VOMITING Last administered on 09/13/18at 17:54; Admin Dose 4 MG; Start 09/12/18 at 07:00 Acetaminophen (Tylenol Tab) 650 mg Q6H PRN PO .PAIN 1-3 OR TEMP; Start 09/12/18 at 07:00 Acetaminophen/ Hydrocodone Bitart ([place] (5/325)) 1 tab Q6H PRN PO .PAIN 4-6; Start 09/12/18 at 07:00 Albuterol/ Ipratropium (Duoneb) 3 ml Q2H RESP THERAPY PRN HHN SHORTNESS OF BREATH; Start 09/12/18 at 07:00 Clonazepam (Klonopin) 1 mg BID PRN PO ANXIETY; Start 09/12/18 at 07:00 Pantoprazole (Protonix Tab) 40 mg AC BREAKFAST PO Last administered on 09/14/18at 06:44; Admin Dose 40 MG; Start 09/12/18 at 07:00 Vancomycin HCl (Vanco Iv Per Pharmacy) VANCOMYCIN PER PHARMACY PER PROTOCOL XX ; Start 09/12/18 at 07:00 Piperacillin Sod/ Tazobactam Sod 100 ml @ 200 mls/hr Q6H IVPB Last administered on 09/14/18at 12:07; Admin Dose 200 MLS/HR; Start 09/12/18 at 07:00 Sodium Chloride 1,000 ml @ 100 mls/hr Q10H IV Last administered on 09/13/18at 12:12; Admin Dose 100 MLS/HR; Start 09/12/18 at 07:30 Ferrous Sulfate (Ferrous Sulfate (Ec)) 325 mg TID PO Last administered on 09/14/18at 12:07; Admin Dose 325 MG; Start 09/12/18 at 09:00 Ibuprofen (Motrin) 400 mg Q6H PRN PO MILD PAIN(1-3) OR TEMP>38C; Start 09/12/18 at 11:00 Tramadol HCl (Ultram) 50 mg Q6H PRN PO MODERATE PAIN LEVEL 4-6; Start 09/12/18 at 11:00 Ferric Sodium Gluconate Complex 125 mg/Sodium Chloride 110 ml @ 110 mls/hr DAILY@1300 IVPB Last administered on 09/14/18at 12:59; Admin Dose 110 MLS/HR; Start 09/12/18 at 18:00; Stop 09/16/18 at 13:59 Miscellaneous Information 240 mg BID PO ; Start 09/12/18 at 17:30; Status UNV Levofloxacin/ Dextrose 150 ml @ 100 mls/hr Q24H IVPB Last administered on 09/13/18at 17:54; Admin Dose 100 MLS/HR; Start 09/13/18 at 17:00 Vancomycin HCl 250 ml @ 125 mls/hr Q12H IVPB Last administered on 09/14/18at 08:09; Admin Dose 125 MLS/HR; Start 09/14/18 at 08:00 Miscellaneous Information (*Order Clarification Bulletin) MEDICATION REQUIRES CLARIFICATION:TE... Q8H XX ; Start 09/14/18 at 12:30 Ascorbic Acid (Vitamin C) 500 mg TID PO ; Start 09/14/18 at 21:00; Status UNMIKA MARMOLEJO MD Sep 14, 2018 13:18
[2018-09-14] MEDS ORDERED: LACTULOSE 30ML CUP PO ONE (13:30)
--- NOTE | 2018-09-14 14:50 | PN ---
Date/Time of Note Date/Time of Note DATE: 09/14/18 TIME: 14:48 Assessment/Plan VTE Prophylaxis Risk score (from [facility])>0 risk: 5 SCD applied (from [facility]): Yes Pharmacological prophylaxis: LMWH Lines/Catheters IV [facility]ter Type (from [facility]): Peripheral IV Urinary Cath still in place: No Assessment/Plan Assessment/Plan ASSESSMENT: 1. Anemia due to iron deficiency. 2. Multiple sclerosis. 3. History of deep vein thrombosis. 4. Right pulmonary infiltrate. DISCUSSION: This patient's iron deficiency is most likely due to menorrhagia. This is complicated by the fact that the patient is also on apixaban for anticoagulation for previous thromboembolic event. Based on patient's admission, hemoglobin and weight, she will require approximately 2000 mg of elemental iron in order to replete her iron stores. She has since been administered IV iron and prophylactic blood transfusion with clinical and numerical improvement. The CT angiogram of the chest does show large rounded area of consolidation in the right middle lobe, as well as an enlarged hilar nodes and small right pleural effusion. On CT scan of the abdomen and pelvis demonstrated right middle lobe mass, which measures 2.6 x 2.8 cm, which is possibly necrotic. Will continue to monitor patient on treatment and will consider biopsy if no improvement noted We would continue the patient on iron replacement therapy as well as antibiotics as outlined by Dr. Godoy. Result Diagram: 09/14/18 0647 09/14/18 0524 Results 24hrs Laboratory Tests Test 09/14/18 03:20 09/14/18 05:24 09/14/18 06:47 Vancomycin Level Trough 19.3 Sodium Level 141 Potassium Level 3.7 Chloride Level 108 Carbon Dioxide Level 24 Anion Gap 9 Blood Urea Nitrogen 8 Creatinine 1.06 H Est Glomerular Filtrat Rate mL/min 55 L Glucose Level 113 # Calcium Level 8.7 Carcinoembryonic Antigen 3.4 CA 125 Antigen 24.3 White Blood Count 15.4 H Red Blood Count 4.17 #L Hemoglobin 9.5 #L Hematocrit 31.5 #L Mean Corpuscular Volume 75.5 L Mean Corpuscular Hemoglobin 22.8 L Mean Corpuscular Hemoglobin Concent 30.2 L Red Cell Distribution Width 19.5 H Platelet Count 590 H Mean Platelet Volume 10.5 H Immature Granulocytes % 1.800 H Neutrophils % 79.0 H Lymphocytes % 9.0 L Monocytes % 8.4 Eosinophils % 1.3 Basophils % 0.5 Nucleated Red Blood Cells % 0.6 H Immature Granulocytes # 0.270 H Neutrophils # 12.2 H Lymphocytes # 1.4 Monocytes # 1.3 H Eosinophils # 0.2 Basophils # 0.1 Nucleated Red Blood Cells # 0.1 H Subjective 24 Hr Interval Summary Free Text/Dictation Patient awake, alert She denies any shortness of breath nor fever Exam/Review of Systems Exam Vitals Vital Signs Date Temp Pulse Resp B/P (MAP) Pulse Ox O2 O2 Flow FiO2 Time Delivery Rate 09/14/18 85 12:02 09/14/18 97.9 16 116/59 96 11:08 (78) 09/14/18 Nasal 2.0 07:45 Cannula Intake and Output 09/13/18 09/13/18 09/14/18 1515:00 23:00 07:00 IntakeIntake Total 560 ml 1800 ml 100 ml BalanceBalance 560 ml 1800 ml 100 ml Constitutional: alert, oriented Psych: no complaints, nl mood/affect Eyes: nl conjunctiva, EOMI Neck: supple, non-tender Respiratory: clear to auscultation, normal air movement, diminished breath sounds Cardiovascular: regular rate and rhythm, nl pulses Gastrointestinal: soft, non-tender Musculoskeletal: nl extremities to inspection Extremities: normal pulses Skin: nl turgor, rash or lesions Results Results 24hrs Laboratory Tests Test 09/14/18 03:20 09/14/18 05:24 09/14/18 06:47 Vancomycin Level Trough 19.3 Sodium Level 141 Potassium Level 3.7 Chloride Level 108 Carbon Dioxide Level 24 Anion Gap 9 Blood Urea Nitrogen 8 Creatinine 1.06 H Est Glomerular Filtrat Rate mL/min 55 L Glucose Level 113 # Calcium Level 8.7 Carcinoembryonic Antigen 3.4 CA 125 Antigen 24.3 White Blood Count 15.4 H Red Blood Count 4.17 #L Hemoglobin 9.5 #L Hematocrit 31.5 #L Mean Corpuscular Volume 75.5 L Mean Corpuscular Hemoglobin 22.8 L Mean Corpuscular Hemoglobin Concent 30.2 L Red Cell Distribution Width 19.5 H Platelet Count 590 H Mean Platelet Volume 10.5 H Immature Granulocytes % 1.800 H Neutrophils % 79.0 H Lymphocytes % 9.0 L Monocytes % 8.4 Eosinophils % 1.3 Basophils % 0.5 Nucleated Red Blood Cells % 0.6 H Immature Granulocytes # 0.270 H Neutrophils # 12.2 H Lymphocytes # 1.4 Monocytes # 1.3 H Eosinophils # 0.2 Basophils # 0.1 Nucleated Red Blood Cells # 0.1 H Medications Medication Current Medications IV Flush (NS 3 ml) 3 ml PER PROTOCOL IV ; Start 09/12/18 at 07:00 Ondansetron HCl (Zofran Inj) 4 mg Q6H PRN IV NAUSEA/VOMITING Last administered on 09/13/18at 17:54; Admin Dose 4 MG; Start 09/12/18 at 07:00 Acetaminophen (Tylenol Tab) 650 mg Q6H PRN PO .PAIN 1-3 OR TEMP; Start 09/12/18 at 07:00 Acetaminophen/ Hydrocodone Bitart ([place] (5/325)) 1 tab Q6H PRN PO .PAIN 4-6; Start 09/12/18 at 07:00 Albuterol/ Ipratropium (Duoneb) 3 ml Q2H RESP THERAPY PRN HHN SHORTNESS OF BREATH; Start 09/12/18 at 07:00 Clonazepam (Klonopin) 1 mg BID PRN PO ANXIETY; Start 09/12/18 at 07:00 Pantoprazole (Protonix Tab) 40 mg AC BREAKFAST PO Last administered on 09/14/18at 06:44; Admin Dose 40 MG; Start 09/12/18 at 07:00 Vancomycin HCl (Vanco Iv Per Pharmacy) VANCOMYCIN PER PHARMACY PER PROTOCOL XX ; Start 09/12/18 at 07:00 Piperacillin Sod/ Tazobactam Sod 100 ml @ 200 mls/hr Q6H IVPB Last administered on 09/14/18at 12:07; Admin Dose 200 MLS/HR; Start 09/12/18 at 07:00 Sodium Chloride 1,000 ml @ 100 mls/hr Q10H IV Last administered on 09/13/18at 12:12; Admin Dose 100 MLS/HR; Start 09/12/18 at 07:30 Ferrous Sulfate (Ferrous Sulfate (Ec)) 325 mg TID PO Last administered on 09/14/18 12:07; Admin Dose 325 MG; Start 09/12/18 at 09:00 Ibuprofen (Motrin) 400 mg Q6H PRN PO MILD PAIN(1-3) OR TEMP>38C; Start 09/12/18 at 11:00 Tramadol HCl (Ultram) 50 mg Q6H PRN PO MODERATE PAIN LEVEL 4-6; Start 09/12/18 at 11:00 Ferric Sodium Gluconate Complex 125 mg/Sodium Chloride 110 ml @ 110 mls/hr DAILY@1300 IVPB Last administered on 09/14/18at 12:59; Admin Dose 110 MLS/HR; Start 09/12/18 at 18:00; Stop 09/16/18 at 13:59 Miscellaneous Information 240 mg BID PO ; Start 09/12/18 at 17:30; Status UNV Levofloxacin/ Dextrose 150 ml @ 100 mls/hr Q24H IVPB Last administered on 09/13/18at 17:54; Admin Dose 100 MLS/HR; Start 09/13/18 at 17:00 Vancomycin HCl 250 ml @ 125 mls/hr Q12H IVPB Last administered on 09/14/18at 08:09; Admin Dose 125 MLS/HR; Start 09/14/18 at 08:00 Miscellaneous Information (*Order Clarification Bulletin) MEDICATION REQUIRES CLARIFICATION:TE... Q8H XX ; Start 09/14/18 at 12:30 Ascorbic Acid (Vitamin C) 500 mg TID PO ; Start 09/14/18 at 21:00 Docusate Sodium (Colace) 250 mg HS PO ; Start 09/14/18 at 21:00 JIGAR COTO MD Sep 14, 2018 14:50
[2018-09-14] MEDS: LEVOFLOXACIN 750MG/D5W (PMX) 150 ML IVPB SCH (16:58)
[2018-09-14] MEDS: ONDANSETRON 4 MG INJ IV PRN (17:07)
[2018-09-14] MEDS: IBUPROFEN 400 MG TAB PO PRN (18:13)
--- NOTE | 2018-09-14 18:51 | CONS ---
Assessment/Plan Assessment/Plan Assessment/Plan (Daily) Abnormal uterine bleeding/perimenopausal/postmenopausal bleeding Status post 2 units of packed RBCs blood transfusion Heterogeneous uterus with multiple fibroids. The endometrial echo complex is homogeneous and measures 7.5 mm It was discussed with the patient extensively that she would require further evaluation by a accident investigator as an outpatient Most importantly patient needs an endometrial biopsy or D&C hysteroscopy with an endometrial curettings to rule out the possibility of endometrial carcinoma whi ch can be done in an outpatient setting Consultation Date/Type/Reason Admit Date/Time Sep 12, 2018 at 06:02 Date of Consultation: Sep 14, 2018 Type of Consult Gynecology Reason for Consultation Perimenopausal/postmenopausal bleeding Date/Time of Note DATE: 09/14/18 TIME: 18:45 Constitutional: no complaints, improved Eyes: no complaints ENT: no complaints Respiratory: no complaints Cardiovascular: no complaints Gastrointestinal: no complaints Genitourinary: no complaints Musculoskeletal: no complaints Skin: no complaints Neurologic: no complaints Endocrine: no complaints Lymphatic: no complaints Psychological: no complaints, nl mood/affect Immunologic: no complaints Past Medical History Home Meds Reported Medications Ibuprofen* (Ibuprofen*) 600 Mg Tablet, 600 MG PO NEEDED PRN for PAIN, TAB 09/11/18 Pantoprazole* (Pantoprazole*) 40 Mg Tablet.dr, 40 MG PO AC BREAKFAST, TAB 09/11/18 Dimethyl Fumarate (Tecfidera) 240 Mg Capsule.dr, 240 MG PO BID, CAP 09/11/18 Clonazepam* (Clonazepam*) 1 Mg Tablet, 1 MG PO BID PRN for ANXIETY, TAB 09/11/18 Apixaban* (Eliquis*) 2.5 Mg Tablet, 2.5 MG PO BID, TAB 09/11/18 Discontinued Reported Medications Apixaban* (Eliquis*) 2.5 Mg Tablet, 2.5 MG PO BID, TAB 01/07/18 Clonazepam* (Clonazepam*) 1 Mg Tablet, 1 MG PO TID PRN for ANXIETY, TAB 01/13/16 Dimethyl Fumarate (Tecfidera) 240 Mg Capsule.dr, 240 MG PO BID, CAP 01/13/16 Medications Current Medications IV Flush (NS 3 ml) 3 ml PER PROTOCOL IV ; Start 09/12/18 at 07:00 Ondansetron HCl (Zofran Inj) 4 mg Q6H PRN IV NAUSEA/VOMITING Last administered on 09/14/18 17:07; Admin Dose 4 MG; Start 09/12/18 at 07:00 Acetaminophen (Tylenol Tab) 650 mg Q6H PRN PO .PAIN 1-3 OR TEMP; Start 09/12/18 at 07:00 Acetaminophen/ Hydrocodone Bitart ([place] (5/325)) 1 tab Q6H PRN PO .PAIN 4-6; Start 09/12/18 at 07:00 Albuterol/ Ipratropium (Duoneb) 3 ml Q2H RESP THERAPY PRN HHN SHORTNESS OF BREATH; Start 09/12/18 at 07:00 Clonazepam (Klonopin) 1 mg BID PRN PO ANXIETY; Start 09/12/18 at 07:00 Pantoprazole (Protonix Tab) 40 mg AC BREAKFAST PO Last administered on 09/14/18 06:44; Admin Dose 40 MG; Start 09/12/18 at 07:00 Vancomycin HCl (Vanco Iv Per Pharmacy) VANCOMYCIN PER PHARMACY PER PROTOCOL XX ; Start 09/12/18 at 07:00 Piperacillin Sod/ Tazobactam Sod 100 ml @ 200 mls/hr Q6H IVPB Last administered on 09/14/18 18:14; Admin Dose 200 MLS/HR; Start 09/12/18 at 07:00 Sodium Chloride 1,000 ml @ 100 mls/hr Q10H IV Last administered on 09/13/18 12:12; Admin Dose 100 MLS/HR; Start 09/12/18 at 07:30 Ferrous Sulfate (Ferrous Sulfate (Ec)) 325 mg TID PO Last administered on 09/14/18 12:07; Admin Dose 325 MG; Start 09/12/18 at 09:00 Ibuprofen (Motrin) 400 mg Q6H PRN PO MILD PAIN(1-3) OR TEMP>38C Last administered on 09/14/18 18:13; Admin Dose 400 MG; Start 09/12/18 at 11:00 Tramadol HCl (Ultram) 50 mg Q6H PRN PO MODERATE PAIN LEVEL 4-6; Start 09/12/18 at 11:00 Ferric Sodium Gluconate Complex 125 mg/Sodium Chloride 110 ml @ 110 mls/hr DAILY@1300 IVPB Last administered on 09/14/18 12:59; Admin Dose 110 MLS/HR; Start 09/12/18 at 18:00; Stop 09/16/18 at 13:59 Miscellaneous Information 240 mg BID PO ; Start 09/12/18 at 17:30; Status UNV Levofloxacin/ Dextrose 150 ml @ 100 mls/hr Q24H IVPB Last administered on 09/14/18at 16:58; Admin Dose 100 MLS/HR; Start 09/13/18 at 17:00 Vancomycin HCl 250 ml @ 125 mls/hr Q12H IVPB Last administered on 09/14/18at 08:09; Admin Dose 125 MLS/HR; Start 09/14/18 at 08:00 Miscellaneous Information (*Order Clarification Bulletin) MEDICATION REQUIRES CLARIFICATION:TE... Q8H XX ; Start 09/14/18 at 12:30 Ascorbic Acid (Vitamin C) 500 mg TID PO ; Start 09/14/18 at 21:00 Docusate Sodium (Colace) 250 mg HS PO ; Start 09/14/18 at 21:00 Allergies: Coded Allergies: No Known Allergy (Unverified , 09/11/18) Social History Smoking Status: Never smoker Exam/Review of Systems Exam Vitals Vital Signs Date Temp Pulse Resp B/P (MAP) Pulse Ox O2 O2 Flow FiO2 Time Delivery Rate 09/14/18 96 16:13 09/14/18 97.9 16 116/59 96 11:08 (78) 09/14/18 Nasal 2.0 07:45 Cannula Intake and Output 09/13/18 09/13/18 09/14/18 1515:00 23:00 07:00 IntakeIntake Total 560 ml 1800 ml 100 ml BalanceBalance 560 ml 1800 ml 100 ml Constitutional: alert, oriented, well developed Results Result Diagram: 09/14/18 0647 09/14/18 0524 Results 24hrs Laboratory Tests Test 09/14/18 03:20 09/14/18 05:24 09/14/18 06:47 Vancomycin Level Trough 19.3 Sodium Level 141 Potassium Level 3.7 Chloride Level 108 Carbon Dioxide Level 24 Anion Gap 9 Blood Urea Nitrogen 8 Creatinine 1.06 H Est Glomerular Filtrat Rate mL/min 55 L Glucose Level 113 # Calcium Level 8.7 Carcinoembryonic Antigen 3.4 CA 125 Antigen 24.3 White Blood Count 15.4 H Red Blood Count 4.17 #L Hemoglobin 9.5 #L Hematocrit 31.5 #L Mean Corpuscular Volume 75.5 L Mean Corpuscular Hemoglobin 22.8 L Mean Corpuscular Hemoglobin Concent 30.2 L Red Cell Distribution Width 19.5 H Platelet Count 590 H Mean Platelet Volume 10.5 H Immature Granulocytes % 1.800 H Neutrophils % 79.0 H Lymphocytes % 9.0 L Monocytes % 8.4 Eosinophils % 1.3 Basophils % 0.5 Nucleated Red Blood Cells % 0.6 H Immature Granulocytes # 0.270 H Neutrophils # 12.2 H Lymphocytes # 1.4 Monocytes # 1.3 H Eosinophils # 0.2 Basophils # 0.1 Nucleated Red Blood Cells # 0.1 H Imaging Imaging Ordering MD: WILSON TRAN MD Location: 6WM Room/Bed: [facility] PROCEDURE: Pelvic ultrasound, limited. CLINICAL INDICATION: Vaginal bleeding. TECHNIQUE: Multiple sonographic images of the pelvis were obtained utilizing a transabdominal technique. The images were reviewed on a PACS workstation. COMPARISON: 05/04/2018. FINDINGS: The uterus is heterogeneous and measures 11.6 x 7.1 x 6.1 cm. There are multiple uterine fibroids measuring up to 4.6 cm. The endometrial echo complex is homogeneous and measures 7.5 mm. There is no evidence for free fluid. The right ovary measures 3.1 x 1.9 x 2.3 cm and demonstrates normal flow. The left ovary is not visualized. No adnexal masses are identified. IMPRESSION: Heterogeneous uterus with multiple fibroids. Left ovary not visualized. .Mina Correa MD, MD Date Time Electronically viewed and signed by .Mina Correa MD, MD on 09/13/2018 21:09 .T/ CC: WILSON TRAN MD [id number] Medications Medication Current Medications IV Flush (NS 3 ml) 3 ml PER PROTOCOL IV ; Start 09/12/18 at 07:00 Ondansetron HCl (Zofran Inj) 4 mg Q6H PRN IV NAUSEA/VOMITING Last administered on 09/14/18 17:07; Admin Dose 4 MG; Start 09/12/18 at 07:00 Acetaminophen (Tylenol Tab) 650 mg Q6H PRN PO .PAIN 1-3 OR TEMP; Start 09/12/18 at 07:00 Acetaminophen/ Hydrocodone Bitart ([place] (5/325)) 1 tab Q6H PRN PO .PAIN 4-6; Start 09/12/18 at 07:00 Albuterol/ Ipratropium (Duoneb) 3 ml Q2H RESP THERAPY PRN HHN SHORTNESS OF BREATH; Start 09/12/18 at 07:00 Clonazepam (Klonopin) 1 mg BID PRN PO ANXIETY; Start 09/12/18 at 07:00 Pantoprazole (Protonix Tab) 40 mg AC BREAKFAST PO Last administered on 06:44; Admin Dose 40 MG; Start 09/12/18 at 07:00 Vancomycin HCl (Vanco Iv Per Pharmacy) VANCOMYCIN PER PHARMACY PER PROTOCOL XX ; Start 09/12/18 at 07:00 Piperacillin Sod/ Tazobactam Sod 100 ml @ 200 mls/hr Q6H IVPB Last administered on 09/14/18 18:14; Admin Dose 200 MLS/HR; Start 09/12/18 at 07:00 Sodium Chloride 1,000 ml @ 100 mls/hr Q10H IV Last administered on 09/13/18 12:12; Admin Dose 100 MLS/HR; Start 09/12/18 at 07:30 Ferrous Sulfate (Ferrous Sulfate (Ec)) 325 mg TID PO Last administered on 09/14/18 12:07; Admin Dose 325 MG; Start 09/12/18 at 09:00 Ibuprofen (Motrin) 400 mg Q6H PRN PO MILD PAIN(1-3) OR TEMP>38C Last administered on 09/14/18 18:13; Admin Dose 400 MG; Start 09/12/18 at 11:00 Tramadol HCl (Ultram) 50 mg Q6H PRN PO MODERATE PAIN LEVEL 4-6; Start 09/12/18 at 11:00 Ferric Sodium Gluconate Complex 125 mg/Sodium Chloride 110 ml @ 110 mls/hr DAILY@1300 IVPB Last administered on 3/30/19at 12:59; Admin Dose 110 MLS/HR; Start 09/12/18 at 18:00; Stop 09/16/18 at 13:59 Miscellaneous Information 240 mg BID PO ; Start 09/12/18 at 17:30; Status UNV Levofloxacin/ Dextrose 150 ml @ 100 mls/hr Q24H IVPB Last administered on 09/14/18at 16:58; Admin Dose 100 MLS/HR; Start 09/13/18 at 17:00 Vancomycin HCl 250 ml @ 125 mls/hr Q12H IVPB Last administered on 09/14/18at 08:09; Admin Dose 125 MLS/HR; Start 09/14/18 at 08:00 Miscellaneous Information (*Order Clarification Bulletin) MEDICATION REQUIRES CLARIFICATION:TE... Q8H XX ; Start 09/14/18 at 12:30 Ascorbic Acid (Vitamin C) 500 mg TID PO ; Start 09/14/18 at 21:00 Docusate Sodium (Colace) 250 mg HS PO ; Start 09/14/18 at 21:00 WILSON TRAN MD Sep 14, 2018 18:51
[2018-09-14] MEDS: ASCORBIC ACID 500 MG TAB PO SCH (20:34)
[2018-09-14] MEDS: DOCUSATE SODIUM 250 MG CAP PO SCH (20:34)
[2018-09-15] VITALS (11 sets, daily range): BP systolic 112–136; BP diastolic 53–66; PULSE 67–91; RESP 16–17
[2018-09-15] MEDS: SOD CHLORIDE 0.9% 1,000 ML IV SCH ×3 (01:08→13:22)
[2018-09-15] MEDS: PIPER-TAZO 3.375 GM IV (PMX) 100 ML IVPB SCH ×4 (01:08→19:02)
[2018-09-15] MEDS: [UNRECOGNIZED DRUG - REMARK] XX SCH ×3 (04:55→21:23)
[2018-09-15] MEDS: PANTOPRAZOLE (EC) 40 MG TAB PO SCH (06:14)
--- NOTE | 2018-09-15 06:33 | CONS ---
Assessment/Plan Assessment/Plan Hospital Course (Demo Recall) 1)RML pneumonia with possible abscess the area of question for abscess is small and likely antibiotics alone will be sufficient CT chest did not suggest PE the development of possible abscess suggests aspiration respiratory cx was ordered but have asked nurse to place sputum container by her bedside and encourage daughter to collect I will also order nasal for MRSA continue with vanco/zosyn/levo at present 09/14 - sputum cx is pending but according to patient it was collected improved symptoms and WBC continue with vanco/zosyn/levaquin at present but will re-evaluate when more micro lab results are in 09/15 - sputum cx and nasal cx are neg, no further fevers and wbc is a bit improved today d/c vanco, continue with zosyn/levo at present 2)MS 3) hx of DVT 4) Fe deficiency anemia now on IV iron 09/14 - pt pelvic u/s showed fibroids but pt denies vaginal bleeding except during her menstrual cycle for 3-4 days 09/15- decrease in Hgb is noted Consultation Date/Type/Reason Admit Date/Time Sep 12, 2018 at 06:02 Initial Consult Date 09/13/18 Type of Consult IS Requesting Provider: CLEO FARRIS MD Date/Time of Note DATE: 09/15/18 TIME: 06:31 24 HR Interval Summary Free Text/Dictation pt still has cough no V, N, D Exam/Review of Systems Exam Vitals Vital Signs Date Temp Pulse Resp B/P (MAP) Pulse Ox O2 O2 Flow FiO2 Time Delivery Rate 09/15/18 74 04:00 09/15/18 98.2 16 112/53 97 03:48 (72) 09/14/18 Nasal 2.0 20:15 Cannula Intake and Output 09/14/18 09/14/18 09/15/18 1515:00 23:00 07:00 IntakeIntake Total 350 ml 510 ml BalanceBalance 350 ml 510 ml Constitutional: alert, oriented Respiratory: clear to auscultation Cardiovascular: regular rate and rhythm Gastrointestinal: soft, non-tender Results Result Diagram: 09/15/18 0505 09/14/18 0524 Results 24hrs Laboratory Tests Test 09/14/18 06:47 09/14/18 16:15 09/15/18 05:05 White Blood Count 15.4 H 14.2 H Red Blood Count 4.17 #L 3.54 L Hemoglobin 9.5 #L 8.0 L Hematocrit 31.5 #L 27.1 L Mean Corpuscular Volume 75.5 L 76.6 L Mean Corpuscular Hemoglobin 22.8 L 22.6 L Mean Corpuscular Hemoglobin Concent 30.2 L 29.5 L Red Cell Distribution Width 19.5 H 19.9 H Platelet Count 590 H 579 H Mean Platelet Volume 10.5 H 10.5 H Immature Granulocytes % 1.800 H 2.300 H Neutrophils % 79.0 H 77.3 H Lymphocytes % 9.0 L 10.6 L Monocytes % 8.4 7.2 Eosinophils % 1.3 2.1 Basophils % 0.5 0.5 Nucleated Red Blood Cells % 0.6 H 0.8 H Immature Granulocytes # 0.270 H 0.330 H Neutrophils # 12.2 H 11.0 H Lymphocytes # 1.4 1.5 Monocytes # 1.3 H 1.0 H Eosinophils # 0.2 0.3 Basophils # 0.1 0.1 Nucleated Red Blood Cells # 0.1 H 0.1 H Stool Occult Blood NEGATIVE Medications Medication Current Medications IV Flush (NS 3 ml) 3 ml PER PROTOCOL IV ; Start 09/12/18 at 07:00 Ondansetron HCl (Zofran Inj) 4 mg Q6H PRN IV NAUSEA/VOMITING Last administered on 09/14/18at 17:07; Admin Dose 4 MG; Start 09/12/18 at 07:00 Acetaminophen (Tylenol Tab) 650 mg Q6H PRN PO .PAIN 1-3 OR TEMP; Start 09/12/18 at 07:00 Acetaminophen/ Hydrocodone Bitart ([place] (5/325)) 1 tab Q6H PRN PO .PAIN 4-6; Start 09/12/18 at 07:00 Albuterol/ Ipratropium (Duoneb) 3 ml Q2H RESP THERAPY PRN HHN SHORTNESS OF BREATH; Start 09/12/18 at 07:00 Clonazepam (Klonopin) 1 mg BID PRN PO ANXIETY; Start 09/12/18 at 07:00 Pantoprazole (Protonix Tab) 40 mg AC BREAKFAST PO Last administered on at 06:14; Admin Dose 40 MG; Start 09/12/18 at 07:00 Piperacillin Sod/ Tazobactam Sod 100 ml @ 200 mls/hr Q6H IVPB Last administered on 09/15/18 06:15; Admin Dose 200 MLS/HR; Start 09/12/18 at 07:00 Sodium Chloride 1,000 ml @ 100 mls/hr Q10H IV Last administered on 09/15/18 01:08; Admin Dose 100 MLS/HR; Start 09/12/18 at 07:30 Ferrous Sulfate (Ferrous Sulfate (Ec)) 325 mg TID PO Last administered on 09/14/18 20:34; Admin Dose 325 MG; Start 09/12/18 at 09:00 Ibuprofen (Motrin) 400 mg Q6H PRN PO MILD PAIN(1-3) OR TEMP>38C Last administered on 09/14/18 18:13; Admin Dose 400 MG; Start 09/12/18 at 11:00 Tramadol HCl (Ultram) 50 mg Q6H PRN PO MODERATE PAIN LEVEL 4-6; Start 09/12/18 at 11:00 Ferric Sodium Gluconate Complex 125 mg/Sodium Chloride 110 ml @ 110 mls/hr DAILY@1300 IVPB Last administered on 09/14/18 12:59; Admin Dose 110 MLS/HR; Start 09/12/18 at 18:00; Stop 09/16/18 at 13:59 Miscellaneous Information 240 mg BID PO ; Start 09/12/18 at 17:30; Status UNV Levofloxacin/ Dextrose 150 ml @ 100 mls/hr Q24H IVPB Last administered on 09/14/18 16:58; Admin Dose 100 MLS/HR; Start 09/13/18 at 17:00 Miscellaneous Information (*Order Clarification Bulletin) MEDICATION REQUIRES CLARIFICATION:TE... Q8H XX Last administered on 09/15/18 04:55; Admin Dose 1 EA; Start 09/14/18 at 12:30 Ascorbic Acid (Vitamin C) 500 mg TID PO Last administered on 09/14/18 20:34; Admin Dose 500 MG; Start 09/14/18 at 21:00 Docusate Sodium (Colace) 250 mg HS PO Last administered on 09/14/18 20:34; Admin Dose 250 MG; Start 09/14/18 at 21:00 RUPA RASHEED MD Sep 15, 2018 06:33
[2018-09-15] MEDS: ASCORBIC ACID 500 MG TAB PO SCH ×3 (08:16→21:21)
[2018-09-15] MEDS: FERROUS SULFATE (EC) 325 MG TAB PO SCH ×3 (08:16→21:21)
[2018-09-15] MEDS: BALSAM PERU/CASTOR OIL 60 GM TUBE TOP SCH ×2 (08:17→21:20)
--- NOTE | 2018-09-15 09:50 | CONS ---
Assessment/Plan Assessment/Plan Assessment/Plan (Daily) Assessment and recommendations; 1. Patient admitted with necrotizing pneumonia involving right middle lobe, possibly aspiration, currently on appropriate antimicrobial regimen. 2. Remote history of lower extremity DVT. 3. Multiple sclerosis with functional quadriplegia. Continue current supportive care. Obtain follow-up chest x-ray 24 hours. Consultation Date/Type/Reason Admit Date/Time Sep 12, 2018 at 06:02 Initial Consult Date 09/13/18 Type of Consult Pulmonary pulmonary consult requested for evaluation of pneumonia. Patient is a pleasant 53-year-old lady who came into the hospital with a 2-day history of fever, coughing and chest congestion. Upon evaluation chest x-ray was done which is showing right middle lobe pneumonia. Patient also subsequently had a CT of the chest done which is showing necrotizing pneumonia involving the right middle lobe, patient status post biopsy of the infiltrate. Likely lung abscess. By the time I saw her in ER patient appeared very comfortable and was not in any distress whatsoever. Past medical history; 1. multiple sclerosis with essential quadriplegia, patient is bedridden. 2. History of left lower extremity DVT. Medications; reviewed. Allergies; none. Social history; noncontributory. Family history; patient is , has a supportive family. Occupational history; patient is on disability. Review of systems; denies any headache, seizures, chest pain, complains of scant cough with scant sputum production. Had low-grade fever. Denies any abdominal pain, nausea vomiting. Denies any melena hematochezia or diarrhea. Any urinary symptoms. Any orthopnea. Patient denies any dysphagia. General exam; middle-aged female, awake and alert. Currently in no distress. Requesting Provider: CLEO FARRIS MD Date/Time of Note DATE: 09/15/18 TIME: 09:49 24 HR Interval Summary Free Text/Dictation Patient's condition is stable. Complains of scant cough. General exam; middle-aged female, awake and alert. Currently in no distress. Exam/Review of Systems Exam Vitals Vital Signs Date Temp Pulse Resp B/P (MAP) Pulse Ox O2 O2 Flow FiO2 Time Delivery Rate 09/15/18 Nasal 2.0 09:41 Cannula 09/15/18 67 08:03 09/15/18 98.2 16 131/66 96 07:55 (87) Intake and Output 09/14/18 09/14/18 09/15/18 1515:00 23:00 07:00 IntakeIntake Total 350 ml 510 ml 1490 ml BalanceBalance 350 ml 510 ml 1490 ml Exam H EENT exam; supple neck, no JVD. No lymphadenopathy. Midline trachea. No thyromegaly. Patient has fair dentition. Chest exam; clear to auscultation. S1-S2 audible, no murmurs. Regular rhythm. Abdomen exam; soft, no organomegaly. Bowel sounds audible. Extremity exam; peripheral edema. TR[employer]IC exam; patient has stable quadriplegia. Results Result Diagram: 09/15/18 0505 09/15/18 0505 Results 24hrs Laboratory Tests Test 09/14/18 16:15 09/15/18 05:05 Stool Occult Blood NEGATIVE White Blood Count 14.2 H Red Blood Count 3.54 L Hemoglobin 8.0 L Hematocrit 27.1 L Mean Corpuscular Volume 76.6 L Mean Corpuscular Hemoglobin 22.6 L Mean Corpuscular Hemoglobin Concent 29.5 L Red Cell Distribution Width 19.9 H Platelet Count 579 H Mean Platelet Volume 10.5 H Immature Granulocytes % 2.300 H Neutrophils % 77.3 H Lymphocytes % 10.6 L Monocytes % 7.2 Eosinophils % 2.1 Basophils % 0.5 Nucleated Red Blood Cells % 0.8 H Immature Granulocytes # 0.330 H Neutrophils # 11.0 H Lymphocytes # 1.5 Monocytes # 1.0 H Eosinophils # 0.3 Basophils # 0.1 Nucleated Red Blood Cells # 0.1 H Sodium Level 141 Potassium Level 3.4 L Chloride Level 110 Carbon Dioxide Level 24 Anion Gap 7 Blood Urea Nitrogen 8 Creatinine 1.18 H Est Glomerular Filtrat Rate mL/min 48 L Glucose Level 123 Calcium Level 8.3 L Medications Medication Current Medications IV Flush (NS 3 ml) 3 ml PER PROTOCOL IV ; Start 09/12/18 at 07:00 Ondansetron HCl (Zofran Inj) 4 mg Q6H PRN IV NAUSEA/VOMITING Last administered on 09/14/18at 17:07; Admin Dose 4 MG; Start 09/12/18 at 07:00 Acetaminophen (Tylenol Tab) 650 mg Q6H PRN PO .PAIN 1-3 OR TEMP; Start 09/12/18 at 07:00 Acetaminophen/ Hydrocodone Bitart ([place] (5/325)) 1 tab Q6H PRN PO .PAIN 4-6; Start 09/12/18 at 07:00 Albuterol/ Ipratropium (Duoneb) 3 ml Q2H RESP THERAPY PRN HHN SHORTNESS OF BREATH; Start 09/12/18 at 07:00 Clonazepam (Klonopin) 1 mg BID PRN PO ANXIETY; Start 09/12/18 at 07:00 Pantoprazole (Protonix Tab) 40 mg AC BREAKFAST PO Last administered on 09/15/18 06:14; Admin Dose 40 MG; Start 09/12/18 at 07:00 Piperacillin Sod/ Tazobactam Sod 100 ml @ 200 mls/hr Q6H IVPB Last administered on 09/15/18 06:15; Admin Dose 200 MLS/HR; Start 09/12/18 at 07:00 Sodium Chloride 1,000 ml @ 100 mls/hr Q10H IV Last administered on 09/15/18 01:08; Admin Dose 100 MLS/HR; Start 09/12/18 at 07:30 Ferrous Sulfate (Ferrous Sulfate (Ec)) 325 mg TID PO Last administered on 09/15/18 08:16; Admin Dose 325 MG; Start 09/12/18 at 09:00 Ibuprofen (Motrin) 400 mg Q6H PRN PO MILD PAIN(1-3) OR TEMP>38C Last administered on 09/14/18 18:13; Admin Dose 400 MG; Start 09/12/18 at 11:00 Tramadol HCl (Ultram) 50 mg Q6H PRN PO MODERATE PAIN LEVEL 4-6; Start 09/12/18 at 11:00 Ferric Sodium Gluconate Complex 125 mg/Sodium Chloride 110 ml @ 110 mls/hr DAILY@1300 IVPB Last administered on 09/14/18 12:59; Admin Dose 110 MLS/HR; Start 09/12/18 at 18:00; Stop 09/16/18 at 13:59 Miscellaneous Information 240 mg BID PO ; Start 09/12/18 at 17:30; Status UNV Levofloxacin/ Dextrose 150 ml @ 100 mls/hr Q24H IVPB Last administered on 09/14/18 16:58; Admin Dose 100 MLS/HR; Start 09/13/18 at 17:00 Miscellaneous Information (*Order Clarification Bulletin) MEDICATION REQUIRES CLARIFICATION:TE... Q8H XX Last administered on 09/15/18at 04:55; Admin Dose 1 EA; Start 09/14/18 at 12:30 Ascorbic Acid (Vitamin C) 500 mg TID PO Last administered on 09/15/18 08:16; Admin Dose 500 MG; Start 09/14/18 at 21:00 Docusate Sodium (Colace) 250 mg HS PO Last administered on 09/14/18at 20:34; Admin Dose 250 MG; Start 09/14/18 at 21:00 HIREN BOOKER Sep 15, 2018 09:50
[2018-09-15] MEDS: ONDANSETRON 4 MG INJ IV PRN (12:45)
--- NOTE | 2018-09-15 13:12 | PN ---
Date/Time of Note Date/Time of Note DATE: 09/15/18 TIME: 13:09 Assessment/Plan VTE Prophylaxis Risk score (from [facility] [place], [place])>0 risk: 5 SCD applied (from [facility] [place], [place]): Yes Pharmacological prophylaxis: rivaroxaban Lines/Catheters IV Catheter Type (from [facility]): Peripheral IV Urinary Cath still in place: No Assessment/Plan Problems: (1) Right middle lobe pneumonia Status: Acute Comment: Remains on antibiotics and progressing. Please see notes from infecti ous disease and pulmonary. I would kindly request that they put and dates are at least estimated in days for the antibiotics Qualifiers: Pneumonia type: due to unspecified organism Qualified Codes: J18.1 - Lobar pneumonia, unspecified organism (2) Functional quadriplegia secondary to multiple sclerosis Status: Chronic Comment: Noted. Continue with treatment as best as possible and careful skin care (3) Dysfunctional uterine bleeding Status: Chronic Comment: Please see the note from gynecology. Given that the patient is losing blood and has significant iron deficiency anemia I am going to give Provera for a few days and place patient on contraceptives to stop the blood loss. Since she is going to be here for a few days it would have been a consideration to try and do something about this here however please see the gynecology consult (4) Uterine fibroid Status: Chronic Comment: Noted. Qualifiers: Uterine leiomyoma location: unspecified location Qualified Codes: D25.9 - Leiomyoma of uterus, unspecified (5) Anemia Status: Acute Comment: Try and replace the patient's iron. Please note that the oral iron that she is getting 3 times a day is causing significant GI tract issues with nausea and vomiting. I will try and address this around. Qualifiers: Anemia type: iron deficiency Iron deficiency anemia type: chronic blood loss Qualified Codes: D50.0 - Iron deficiency anemia secondary to blood loss (chronic) Result Diagram: 09/15/18 0505 09/15/18 0505 Results 24hrs Laboratory Tests Test 09/14/18 16:15 09/15/18 05:05 Stool Occult Blood NEGATIVE White Blood Count 14.2 H Red Blood Count 3.54 L Hemoglobin 8.0 L Hematocrit 27.1 L Mean Corpuscular Volume 76.6 L Mean Corpuscular Hemoglobin 22.6 L Mean Corpuscular Hemoglobin Concent 29.5 L Red Cell Distribution Width 19.9 H Platelet Count 579 H Mean Platelet Volume 10.5 H Immature Granulocytes % 2.300 H Neutrophils % 77.3 H Lymphocytes % 10.6 L Monocytes % 7.2 Eosinophils % 2.1 Basophils % 0.5 Nucleated Red Blood Cells % 0.8 H Immature Granulocytes # 0.330 H Neutrophils # 11.0 H Lymphocytes # 1.5 Monocytes # 1.0 H Eosinophils # 0.3 Basophils # 0.1 Nucleated Red Blood Cells # 0.1 H Sodium Level 141 Potassium Level 3.4 L Chloride Level 110 Carbon Dioxide Level 24 Anion Gap 7 Blood Urea Nitrogen 8 Creatinine 1.18 H Est Glomerular Filtrat Rate mL/min 48 L Glucose Level 123 Calcium Level 8.3 L Subjective 24 Hr Interval Summary Free Text/Dictation Complains of significant nausea. Constitutional: no complaints (No fevers chills or sweats) Respiratory: shortness of breath (Reports her breathing is a little bit better) Cardiovascular: no complaints Gastrointestinal: no complaints Genitourinary: no complaints Endocrine: other (Patient reports that she did not have much time with a gynecology consult and yesterday) Exam/Review of Systems Exam Vitals Vital Signs Date Temp Pulse Resp B/P (MAP) Pulse Ox O2 O2 Flow FiO2 Time Delivery Rate 09/15/18 83 12:11 09/15/18 97.9 16 123/59 99 11:25 (80) 09/15/18 Nasal 2.0 09:41 Cannula Intake and Output 09/14/18 09/14/18 09/15/18 1515:00 23:00 07:00 IntakeIntake Total 350 ml 510 ml 1490 ml BalanceBalance 350 ml 510 ml 1490 ml Constitutional: alert, oriented Respiratory: clear to auscultation, normal air movement Cardiovascular: regular rate and rhythm, nl pulses Gastrointestinal: soft, nl liver, spleen, non-tender Results Results 24hrs Laboratory Tests Test 09/14/18 16:15 09/15/18 05:05 Stool Occult Blood NEGATIVE White Blood Count 14.2 H Red Blood Count 3.54 L Hemoglobin 8.0 L Hematocrit 27.1 L Mean Corpuscular Volume 76.6 L Mean Corpuscular Hemoglobin 22.6 L Mean Corpuscular Hemoglobin Concent 29.5 L Red Cell Distribution Width 19.9 H Platelet Count 579 H Mean Platelet Volume 10.5 H Immature Granulocytes % 2.300 H Neutrophils % 77.3 H Lymphocytes % 10.6 L Monocytes % 7.2 Eosinophils % 2.1 Basophils % 0.5 Nucleated Red Blood Cells % 0.8 H Immature Granulocytes # 0.330 H Neutrophils # 11.0 H Lymphocytes # 1.5 Monocytes # 1.0 H Eosinophils # 0.3 Basophils # 0.1 Nucleated Red Blood Cells # 0.1 H Sodium Level 141 Potassium Level 3.4 L Chloride Level 110 Carbon Dioxide Level 24 Anion Gap 7 Blood Urea Nitrogen 8 Creatinine 1.18 H Est Glomerular Filtrat Rate mL/min 48 L Glucose Level 123 Calcium Level 8.3 L Medications Medication Current Medications IV Flush (NS 3 ml) 3 ml PER PROTOCOL IV ; Start 09/12/18 at 07:00 Ondansetron HCl (Zofran Inj) 4 mg Q6H PRN IV NAUSEA/VOMITING Last administered on 09/15/18at 12:45; Admin Dose 4 MG; Start 09/12/18 at 07:00 Acetaminophen (Tylenol Tab) 650 mg Q6H PRN PO .PAIN 1-3 OR TEMP; Start 09/12/18 at 07:00 Acetaminophen/ Hydrocodone Bitart ([place] (5/325)) 1 tab Q6H PRN PO .PAIN 4-6; Start 09/12/18 at 07:00 Albuterol/ Ipratropium (Duoneb) 3 ml Q2H RESP THERAPY PRN HHN SHORTNESS OF BREATH; Start 09/12/18 at 07:00 Clonazepam (Klonopin) 1 mg BID PRN PO ANXIETY; Start 09/12/18 at 07:00 Pantoprazole (Protonix Tab) 40 mg AC BREAKFAST PO Last administered on 09/15/18at 06:14; Admin Dose 40 MG; Start 09/12/18 at 07:00 Piperacillin Sod/ Tazobactam Sod 100 ml @ 200 mls/hr Q6H IVPB Last administered on 09/15/18 12:36; Admin Dose 200 MLS/HR; Start 09/12/18 at 07:00 Sodium Chloride 1,000 ml @ 100 mls/hr Q10H IV Last administered on 09/15/18 01:08; Admin Dose 100 MLS/HR; Start 09/12/18 at 07:30 Ferrous Sulfate (Ferrous Sulfate (Ec)) 325 mg TID PO Last administered on 09/15/18 12:35; Admin Dose 325 MG; Start 09/12/18 at 09:00 Ibuprofen (Motrin) 400 mg Q6H PRN PO MILD PAIN(1-3) OR TEMP>38C Last administered on 09/14/18 18:13; Admin Dose 400 MG; Start 09/12/18 at 11:00 Tramadol HCl (Ultram) 50 mg Q6H PRN PO MODERATE PAIN LEVEL 4-6; Start 09/12/18 at 11:00 Ferric Sodium Gluconate Complex 125 mg/Sodium Chloride 110 ml @ 110 mls/hr ALONSO LY@1300 IVPB Last administered on 09/14/18 12:59; Admin Dose 110 MLS/HR; Start 09/12/18 at 18:00; Stop 09/16/18 at 13:59 Miscellaneous Information 240 mg BID PO ; Start 09/12/18 at 17:30; Status UNV Levofloxacin/ Dextrose 150 ml @ 100 mls/hr Q24H IVPB Last administered on 09/14/18 16:58; Admin Dose 100 MLS/HR; Start 09/13/18 at 17:00 Miscellaneous Information (*Order Clarification Bulletin) MEDICATION REQUIRES CLARIFICATION:TE... Q8H XX Last administered on 09/15/18 04:55; Admin Dose 1 EA; Start 09/14/18 at 12:30 Ascorbic Acid (Vitamin C) 500 mg TID PO Last administered on 09/15/18 12:35; Admin Dose 500 MG; Start 09/14/18 at 21:00 Docusate Sodium (Colace) 250 mg HS PO Last administered on 09/14/18 20:34; Admin Dose 250 MG; Start 09/14/18 at 21:00 Medroxyprogesterone Acetate (Provera) 10 mg DAILY PO ; Start 09/15/18 at 13:00; Stop 09/20/18 at 12:59; Status UNV MIKA LOONEY MD Sep 15, 2018 13:12
[2018-09-15] MEDS: SOD FERRIC GLUC COMPLX 125 MG in SOD CHLORIDE 0.9% 100 ML IVPB SCH (13:22)
--- NOTE | 2018-09-15 14:17 | PN ---
Date/Time of Note Date/Time of Note DATE: 09/15/18 TIME: 14:16 Assessment/Plan VTE Prophylaxis Risk score (from [facility] [place])>0 risk: 5 SCD applied (from [facility] [place]): Yes SCD contraindicated: other Pharmacological prophylaxis: apixaban Lines/Catheters IV Catheter Type (from [facility]): Peripheral IV Urinary Cath still in place: No Assessment/Plan Assessment/Plan ASSESSMENT: 1. Anemia due to iron deficiency. 2. Multiple sclerosis. 3. History of deep vein thrombosis. 4. Right pulmonary infiltrate. >Iron deficiency anemia Based on patient's admission, hemoglobin and weight, she will require approximately 2000 mg of elemental iron in order to replete her iron stores. She has since been administered IV iron and prophylactic blood transfusion with clinical and numerical improvement. However after administration, hemoglobin has declined today. Follow-up repeat CBC, but patient has never been evaluated with colonoscopy either. >Right pulmonary infiltrate The CT angiogram of the chest does show large rounded area of consolidation in the right middle lobe, as well as an enlarged hilar nodes and small right pleural effusion. On CT scan of the abdomen and pelvis demonstrated right middle lobe mass, which measures 2.6 x 2.8 cm, which is possibly necrotic. Will continue to monitor patient on treatment and will consider biopsy if no improvement noted We will continue antibiotics as outlined by Dr. Godoy. Result Diagram: 09/15/18 0505 09/15/18 0505 Results 24hrs Laboratory Tests Test 09/14/18 16:15 09/15/18 05:05 Stool Occult Blood NEGATIVE White Blood Count 14.2 H Red Blood Count 3.54 L Hemoglobin 8.0 L Hematocrit 27.1 L Mean Corpuscular Volume 76.6 L Mean Corpuscular Hemoglobin 22.6 L Mean Corpuscular Hemoglobin Concent 29.5 L Red Cell Distribution Width 19.9 H Platelet Count 579 H Mean Platelet Volume 10.5 H Immature Granulocytes % 2.300 H Neutrophils % 77.3 H Lymphocytes % 10.6 L Monocytes % 7.2 Eosinophils % 2.1 Basophils % 0.5 Nucleated Red Blood Cells % 0.8 H Immature Granulocytes # 0.330 H Neutrophils # 11.0 H Lymphocytes # 1.5 Monocytes # 1.0 H Eosinophils # 0.3 Basophils # 0.1 Nucleated Red Blood Cells # 0.1 H Sodium Level 141 Potassium Level 3.4 L Chloride Level 110 Carbon Dioxide Level 24 Anion Gap 7 Blood Urea Nitrogen 8 Creatinine 1.18 H Est Glomerular Filtrat Rate mL/min 48 L Glucose Level 123 Calcium Level 8.3 L Subjective 24 Hr Interval Summary Free Text/Dictation Patient notes abdominal pain, denies any bleeding She is more lethargic today Exam/Review of Systems Exam Vitals Vital Signs Date Temp Pulse Resp B/P (MAP) Pulse Ox O2 O2 Flow FiO2 Time Delivery Rate 09/15/18 83 12:11 09/15/18 97.9 16 123/59 99 11:25 (80) 09/15/18 Nasal 2.0 09:41 Cannula Intake and Output 09/14/18 09/14/18 09/15/18 1515:00 23:00 07:00 IntakeIntake Total 350 ml 510 ml 1490 ml BalanceBalance 350 ml 510 ml 1490 ml Constitutional: alert, oriented Psych: no complaints Eyes: nl conjunctiva, EOMI ENMT: nl external ears & nose, nl lips & teeth Neck: supple, non-tender Respiratory: clear to auscultation, normal air movement Cardiovascular: regular rate and rhythm, nl pulses Gastrointestinal: soft, non-tender Extremities: normal pulses Results Results 24hrs Laboratory Tests Test 09/14/18 16:15 09/15/18 05:05 Stool Occult Blood NEGATIVE White Blood Count 14.2 H Red Blood Count 3.54 L Hemoglobin 8.0 L Hematocrit 27.1 L Mean Corpuscular Volume 76.6 L Mean Corpuscular Hemoglobin 22.6 L Mean Corpuscular Hemoglobin Concent 29.5 L Red Cell Distribution Width 19.9 H Platelet Count 579 H Mean Platelet Volume 10.5 H Immature Granulocytes % 2.300 H Neutrophils % 77.3 H Lymphocytes % 10.6 L Monocytes % 7.2 Eosinophils % 2.1 Basophils % 0.5 Nucleated Red Blood Cells % 0.8 H Immature Granulocytes # 0.330 H Neutrophils # 11.0 H Lymphocytes # 1.5 Monocytes # 1.0 H Eosinophils # 0.3 Basophils # 0.1 Nucleated Red Blood Cells # 0.1 H Sodium Level 141 Potassium Level 3.4 L Chloride Level 110 Carbon Dioxide Level 24 Anion Gap 7 Blood Urea Nitrogen 8 Creatinine 1.18 H Est Glomerular Filtrat Rate mL/min 48 L Glucose Level 123 Calcium Level 8.3 L Medications Medication Current Medications IV Flush (NS 3 ml) 3 ml PER PROTOCOL IV ; Start 3/28/19 at 07:00 Ondansetron HCl (Zofran Inj) 4 mg Q6H PRN IV NAUSEA/VOMITING Last administered on 09/15/18at 12:45; Admin Dose 4 MG; Start 09/12/18 at 07:00 Acetaminophen (Tylenol Tab) 650 mg Q6H PRN PO .PAIN 1-3 OR TEMP; Start 09/12/18 at 07:00 Acetaminophen/ Hydrocodone Bitart ([place] (5/325)) 1 tab Q6H PRN PO .PAIN 4-6; Start 09/12/18 at 07:00 Albuterol/ Ipratropium (Duoneb) 3 ml Q2H RESP THERAPY PRN HHN SHORTNESS OF BREATH; Start 09/12/18 at 07:00 Clonazepam (Klonopin) 1 mg BID PRN PO ANXIETY; Start 09/12/18 at 07:00 Pantoprazole (Protonix Tab) 40 mg AC BREAKFAST PO Last administered on 09/15/18at 06:14; Admin Dose 40 MG; Start 09/12/18 at 07:00 Piperacillin Sod/ Tazobactam Sod 100 ml @ 200 mls/hr Q6H IVPB Last administered on 09/15/18 12:36; Admin Dose 200 MLS/HR; Start 09/12/18 at 07:00 Sodium Chloride 1,000 ml @ 100 mls/hr Q10H IV Last administered on 09/15/18 13:22; Admin Dose 100 MLS/HR; Start 09/12/18 at 07:30 Ibuprofen (Motrin) 400 mg Q6H PRN PO MILD PAIN(1-3) OR TEMP>38C Last administered on 09/14/18 18:13; Admin Dose 400 MG; Start 09/12/18 at 11:00 Tramadol HCl (Ultram) 50 mg Q6H PRN PO MODERATE PAIN LEVEL 4-6; Start 09/12/18 at 11:00 Ferric Sodium Gluconate Complex 125 mg/Sodium Chloride 110 ml @ 110 mls/hr DAILY@1300 IVPB Last administered on 09/15/18 13:22; Admin Dose 110 MLS/HR; Start 09/12/18 at 18:00; Stop 09/16/18 at 13:59 Miscellaneous Information 240 mg BID PO ; Start 09/12/18 at 17:30; Status UNV Levofloxacin/ Dextrose 150 ml @ 100 mls/hr Q24H IVPB Last administered on 09/14/18at 16:58; Admin Dose 100 MLS/HR; Start 09/13/18 at 17:00; Stop 09/23/18 at 16:59 Miscellaneous Information (*Order Clarification Bulletin) MEDICATION REQUIRES CLARIFICATION:TE... Q8H XX Last administered on 09/15/18at 04:55; Admin Dose 1 EA; Start 09/14/18 at 12:30 Docusate Sodium (Colace) 250 mg HS PO Last administered on 09/14/18at 20:34; Admin Dose 250 MG; Start 09/14/18 at 21:00 Medroxyprogesterone Acetate (Provera) 10 mg DAILY PO ; Start 09/15/18 at 13:00; Stop 09/20/18 at 12:59 Ascorbic Acid (Vitamin C) 500 mg QHS PO ; Start 09/15/18 at 21:00 Ferrous Sulfate (Ferrous Sulfate (Ec)) 325 mg QHS PO ; Start 09/15/18 at 21:00 Ethinyl Estradiol/ Norethindrone (Nortrel 0.5-35-28 Tablet) 1 each QHS PO ; Start 09/15/18 at 21:00 Ferric Sodium Gluconate Complex 125 mg/Sodium Chloride 100 ml @ 100 mls/hr ONCE ONCE IVPB ; Start 09/15/18 at 19:30; Stop 09/15/18 at 20:29 JIGAR COTO MD Sep 15, 2018 14:17
[2018-09-15] MEDS: MEDROXYPROGESTERONE 10 MG TAB PO SCH (16:55)
[2018-09-15] MEDS: LEVOFLOXACIN 750MG/D5W (PMX) 150 ML IVPB SCH (16:55)
[2018-09-15] MEDS ORDERED: SOD FERRIC GLUC COMPLX 125 MG in SOD CHLORIDE 0.9% 100 ML IVPB ONE (19:30)
[2018-09-15] MEDS: NORETHINDRONE-ETHINYL ESTR 0.5-35 TAB PO SCH (21:21)
[2018-09-15] MEDS: DOCUSATE SODIUM 250 MG CAP PO SCH (21:21)
[2018-09-16] VITALS (11 sets, daily range): BP systolic 125–139; BP diastolic 58–82; PULSE 80–103; RESP 16–18
[2018-09-16] MEDS: PIPER-TAZO 3.375 GM IV (PMX) 100 ML IVPB SCH ×2 (01:51→06:14)
[2018-09-16] MEDS: SOD CHLORIDE 0.9% 1,000 ML IV SCH ×3 (04:52→16:05)
[2018-09-16] MEDS: [UNRECOGNIZED DRUG - REMARK] XX SCH ×3 (05:01→20:30)
[2018-09-16] MEDS: PANTOPRAZOLE (EC) 40 MG TAB PO SCH (06:14)
--- NOTE | 2018-09-16 06:49 | CONS ---
Assessment/Plan Assessment/Plan Hospital Course (Demo Recall) 1)RML pneumonia with possible abscess the area of question for abscess is small and likely antibiotics alone will be sufficient CT chest did not suggest PE the development of possible abscess suggests aspiration respiratory cx was ordered but have asked nurse to place sputum container by her bedside and encourage daughter to collect I will also order nasal for MRSA continue with vanco/zosyn/levo at present 09/14 - sputum cx is pending but according to patient it was collected improved symptoms and WBC continue with vanco/zosyn/levaquin at present but will re-evaluate when more micro lab results are in 09/15 - sputum cx and nasal cx are neg, no further fevers and wbc is a bit improved today d/c vanco, continue with zosyn/levo at present 09/16 - WBC count is stalled but clinically she is better pt has N and vomited yesterday, not sure if it is the iron infusion or possibly the zosyn d/c zosyn and start merrem and continue thru 09/19 continue levaquin thru 09/18 if WBC not improving will need to re-image area of possible lung abscess 2)MS 3) hx of DVT 4) Fe deficiency anemia now on IV iron 09/14 - pt pelvic u/s showed fibroids but pt denies vaginal bleeding except during her menstrual cycle for 3-4 days 09/15- decrease in Hgb is noted 09/16 - improvement in Hgb this a.m. pt has N and occasionally vomiting, may be related to the iron Consultation Date/Type/Reason Admit Date/Time Sep 12, 2018 at 06:02 Initial Consult Date 09/13/18 Type of Consult IS Requesting Provider: CLEO FARRIS MD Date/Time of Note DATE: 09/16/18 TIME: 06:44 24 HR Interval Summary Free Text/Dictation pt c/o nausea this a.m. and vomited yesterday morning pain to abd pain to chest is less and overall she feels better has phlegm with cough but not sure what color it is no diarrhea Exam/Review of Systems Exam Vitals Vital Signs Date Temp Pulse Resp B/P (MAP) Pulse Ox O2 O2 Flow FiO2 Time Delivery Rate 09/16/18 98.2 97 17 136/60 97 05:00 (85) 09/15/18 Nasal 2.0 21:37 Cannula Intake and Output 3/31/19 3/31/19 4/1/19 1515:00 23:00 07:00 IntakeIntake Total 1660 ml 1400 ml BalanceBalance 1660 ml 1400 ml Constitutional: alert, oriented Eyes: nl sclera ENMT: mucosa pink and moist Respiratory: clear to auscultation Cardiovascular: regular rate and rhythm Gastrointestinal: soft, non-tender Results Result Diagram: 09/16/18 0540 09/15/18 0505 Results 24hrs Laboratory Tests Test 09/16/18 05:40 White Blood Count 14.8 H Red Blood Count 3.66 L Hemoglobin 8.4 L Hematocrit 28.6 L Mean Corpuscular Volume 78.1 L Mean Corpuscular Hemoglobin 23.0 L Mean Corpuscular Hemoglobin Concent 29.4 L Red Cell Distribution Width 21.7 H Platelet Count 589 H Mean Platelet Volume 10.3 Immature Granulocytes % 2.200 H Neutrophils % 82.5 H Lymphocytes % 6.2 L Monocytes % 6.8 Eosinophils % 1.8 Basophils % 0.5 Nucleated Red Blood Cells % 0.5 H Immature Granulocytes # 0.320 H Neutrophils # 12.2 H Lymphocytes # 0.9 Monocytes # 1.0 H Eosinophils # 0.3 Basophils # 0.1 Nucleated Red Blood Cells # 0.1 H Medications Medication Current Medications IV Flush (NS 3 ml) 3 ml PER PROTOCOL IV ; Start 09/12/18 at 07:00 Ondansetron HCl (Zofran Inj) 4 mg Q6H PRN IV NAUSEA/VOMITING Last administered on 09/15/18at 12:45; Admin Dose 4 MG; Start 09/12/18 at 07:00 Acetaminophen (Tylenol Tab) 650 mg Q6H PRN PO .PAIN 1-3 OR TEMP; Start 09/12/18 at 07:00 Acetaminophen/ Hydrocodone Bitart ([place] (5/325)) 1 tab Q6H PRN PO .PAIN 4-6; Start 09/12/18 at 07:00 Albuterol/ Ipratropium (Duoneb) 3 ml Q2H RESP THERAPY PRN HHN SHORTNESS OF BREATH; Start 09/12/18 at 07:00 Clonazepam (Klonopin) 1 mg BID PRN PO ANXIETY; Start 09/12/18 at 07:00 Pantoprazole (Protonix Tab) 40 mg AC BREAKFAST PO Last administered on 09/16/18 06:14; Admin Dose 40 MG; Start 09/12/18 at 07:00 Piperacillin Sod/ Tazobactam Sod 100 ml @ 200 mls/hr Q6H IVPB Last administered on 09/16/18 06:14; Admin Dose 200 MLS/HR; Start 09/12/18 at 07:00 Sodium Chloride 1,000 ml @ 100 mls/hr Q10H IV Last administered on 09/16/18 04:52; Admin Dose 100 MLS/HR; Start 09/12/18 at 07:30 Ibuprofen (Motrin) 400 mg Q6H PRN PO MILD PAIN(1-3) OR TEMP>38C Last administered on 09/14/18 18:13; Admin Dose 400 MG; Start 09/12/18 at 11:00 Tramadol HCl (Ultram) 50 mg Q6H PRN PO MODERATE PAIN LEVEL 4-6; Start 09/12/18 at 11:00 Ferric Sodium Gluconate Complex 125 mg/Sodium Chloride 110 ml @ 110 mls/hr DAILY@1300 IVPB Last administered on 09/15/18 13:22; Admin Dose 110 MLS/HR; Start 09/12/18 at 18:00; Stop 09/16/18 at 13:59 Miscellaneous Information 240 mg BID PO ; Start 09/12/18 at 17:30; Status UNV Levofloxacin/ Dextrose 150 ml @ 100 mls/hr Q24H IVPB Last administered on 09/15/18 16:55; Admin Dose 100 MLS/HR; Start 09/13/18 at 17:00; Stop 09/23/18 at 16:59 Miscellaneous Information (*Order Clarification Bulletin) MEDICATION REQUIRES CLARIFICATION:TE... Q8H XX Last administered on 09/16/18 05:01; Admin Dose 1 EA; Start 09/14/18 at 12:30 Docusate Sodium (Colace) 250 mg HS PO Last administered on 09/15/18 21:21; Admin Dose 250 MG; Start 09/14/18 at 21:00 Medroxyprogesterone Acetate (Provera) 10 mg DAILY PO Last administered on 09/15/18 16:55; Admin Dose 10 MG; Start 09/15/18 at 13:00; Stop 09/20/18 at 12:59 Ascorbic Acid (Vitamin C) 500 mg QHS PO Last administered on 09/15/18at 21:21; Admin Dose 500 MG; Start 09/15/18 at 21:00 Ferrous Sulfate (Ferrous Sulfate (Ec)) 325 mg QHS PO Last administered on 09/15/18at 21:21; Admin Dose 325 MG; Start 09/15/18 at 21:00 Ethinyl Estradiol/ Norethindrone (Nortrel 0.5-35-28 Tablet) 1 each QHS PO Last administered on 09/15/18at 21:21; Admin Dose 1 EACH; Start 09/15/18 at 21:00 RUPA RASHEED MD Sep 16, 2018 06:49
[2018-09-16] MEDS: BALSAM PERU/CASTOR OIL 60 GM TUBE TOP SCH ×2 (09:31→21:08)
[2018-09-16] MEDS: MEDROXYPROGESTERONE 10 MG TAB PO SCH (09:32)
[2018-09-16] MEDS: ONDANSETRON 4 MG INJ IV PRN ×2 (09:36→19:01)
--- NOTE | 2018-09-16 12:35 | CONS ---
Consult Date/Type/Reason Admit Date/Time Sep 12, 2018 at 06:02 Initial Consult Date 09/13/18 Type of Consult Pulmonary Requesting Provider: CLEO FARRIS MD Date/Time of Note DATE: 09/16/18 TIME: 12:34 Subjective Comfortable this morning no respiratory distress Objective Vital Signs Date Temp Pulse Resp B/P (MAP) Pulse Ox O2 O2 Flow FiO2 Time Delivery Rate 09/16/18 98.7 86 16 125/58 98 Nasal 11:41 (80) Cannula 09/16/18 2.0 08:30 Intake and Output 09/15/18 09/15/18 09/16/18 1515:00 23:00 07:00 IntakeIntake Total 1660 ml 1500 ml BalanceBalance 1660 ml 1500 ml Exam GENERAL: VITAL SIGNS: per chart well-nourished well-developed lady comfortable at rest no acute distress NECK: Supple. No JVD or lymphadenopathy. CARDIAC EXAM: S1, S2. No added sounds or murmurs. CHEST: clear bilaterally, No added sounds, rales or wheezes ABDOMEN: Soft, nontender. No guarding or rebound. EXTREMITIES: No cyanosis, clubbing or edema. NEUROLOGIC: Generalized weakness. No focal deficits. Results/Medications Result Diagram: 09/16/18 0540 09/16/18 0540 Results 24 hrs Laboratory Tests Test 09/16/18 05:40 White Blood Count 14.8 H Red Blood Count 3.66 L Hemoglobin 8.4 L Hematocrit 28.6 L Mean Corpuscular Volume 78.1 L Mean Corpuscular Hemoglobin 23.0 L Mean Corpuscular Hemoglobin Concent 29.4 L Red Cell Distribution Width 21.7 H Platelet Count 589 H Mean Platelet Volume 10.3 Immature Granulocytes % 2.200 H Neutrophils % 82.5 H Lymphocytes % 6.2 L Monocytes % 6.8 Eosinophils % 1.8 Basophils % 0.5 Nucleated Red Blood Cells % 0.5 H Immature Granulocytes # 0.320 H Neutrophils # 12.2 H Lymphocytes # 0.9 Monocytes # 1.0 H Eosinophils # 0.3 Basophils # 0.1 Nucleated Red Blood Cells # 0.1 H Sodium Level 139 Potassium Level 3.8 Chloride Level 110 Carbon Dioxide Level 22 Anion Gap 7 Blood Urea Nitrogen 11 Creatinine 1.11 H Est Glomerular Filtrat Rate mL/min 52 L Glucose Level 147 Calcium Level 8.3 L Medications Current Medications IV Flush (NS 3 ml) 3 ml PER PROTOCOL IV ; Start 09/12/18 at 07:00 Ondansetron HCl (Zofran Inj) 4 mg Q6H PRN IV NAUSEA/VOMITING Last administered on 09/16/18at 09:36; Admin Dose 4 MG; Start 09/12/18 at 07:00 Acetaminophen (Tylenol Tab) 650 mg Q6H PRN PO .PAIN 1-3 OR TEMP; Start 09/12/18 at 07:00 Acetaminophen/ Hydrocodone Bitart ([place] (5/325)) 1 tab Q6H PRN PO .PAIN 4-6; Start 09/12/18 at 07:00 Albuterol/ Ipratropium (Duoneb) 3 ml Q2H RESP THERAPY PRN HHN SHORTNESS OF BREATH; Start 09/12/18 at 07:00 Clonazepam (Klonopin) 1 mg BID PRN PO ANXIETY; Start 09/12/18 at 07:00 Pantoprazole (Protonix Tab) 40 mg AC BREAKFAST PO Last administered on 09/16/18at 06:14; Admin Dose 40 MG; Start 09/12/18 at 07:00 Sodium Chloride 1,000 ml @ 100 mls/hr Q10H IV Last administered on 09/16/18at 04:52; Admin Dose 100 MLS/HR; Start 09/12/18 at 07:30 Ibuprofen (Motrin) 400 mg Q6H PRN PO MILD PAIN(1-3) OR TEMP>38C Last administered on 09/14/18at 18:13; Admin Dose 400 MG; Start 09/12/18 at 11:00 Tramadol HCl (Ultram) 50 mg Q6H PRN PO MODERATE PAIN LEVEL 4-6; Start 09/12/18 at 11:00 Ferric Sodium Gluconate Complex 125 mg/Sodium Chloride 110 ml @ 110 mls/hr DAILY@1300 IVPB Last administered on 09/15/18at 13:22; Admin Dose 110 MLS/HR; Start 09/12/18 at 18:00; Stop 09/16/18 at 13:59 Miscellaneous Information 240 mg BID PO ; Start 09/12/18 at 17:30; Status UNV Levofloxacin/ Dextrose 150 ml @ 100 mls/hr Q24H IVPB Last administered on 09/15/18at 16:55; Admin Dose 100 MLS/HR; Start 09/13/18 at 17:00; Stop 09/23/18 at 16:59 Miscellaneous Information (*Order Clarification Bulletin) MEDICATION REQUIRES CLARIFICATION:TE... Q8H XX Last administered on 09/16/18 05:01; Admin Dose 1 EA; Start 09/14/18 at 12:30 Docusate Sodium (Colace) 250 mg HS PO Last administered on 09/15/18 21:21; Admin Dose 250 MG; Start 09/14/18 at 21:00 Medroxyprogesterone Acetate (Provera) 10 mg DAILY PO Last administered on 09:32; Admin Dose 10 MG; Start 09/15/18 at 13:00; Stop 09/20/18 at 12:59 Ascorbic Acid (Vitamin C) 500 mg QHS PO Last administered on 09/15/18 21:21; Admin Dose 500 MG; Start 09/15/18 at 21:00 Ferrous Sulfate (Ferrous Sulfate (Ec)) 325 mg QHS PO Last administered on 09/15/18 21:21; Admin Dose 325 MG; Start 09/15/18 at 21:00 Ethinyl Estradiol/ Norethindrone (Nortrel 0.5-35-28 Tablet) 1 each QHS PO Last administered on 09/15/18 21:21; Admin Dose 1 EACH; Start 09/15/18 at 21:00 Meropenem/Sodium Chloride 50 ml @ 100 mls/hr Q8 IVPB ; Start 09/16/18 at 14:00; Status UNV Assessment/Plan Hospital Course (Demo Recall) Assessment 1. History of menorrhagia and iron deficiency anemia 2. History of thromboembolic disease on anticoagulation 3. Necrotic right middle lobe mass versus pneumonia Plan 1. Continue antibiotics 2. Iron replacement 3. Encourage out of bed 4. Repeat imaging 3-4 weeks DC planning? CCEELIA BALL MD, [facility] Sep 16, 2018 12:35
--- NOTE | 2018-09-16 13:40 | PN ---
Date/Time of Note Date/Time of Note DATE: 09/16/18 TIME: 13:28 Assessment/Plan VTE Prophylaxis Risk score (from [facility])>0 risk: 5 [place] [facility] [place] Pharmacological prophylaxis: NA/contraindicated Pharm contraindication: bleeding Lines/Catheters IV [facility]ter Type (from [facility] Mid Line Urinary Cath still in place: No Assessment/Plan Assessment/Plan 1. Right middle lobe pneumonia, on meropenem and levaquin, follow up with ID 2. Multiple sclerosis with functional quadriplegia, chronic, supportive care 3. Anemia due to iron deficiency, on iron supplement 4. Abnormal vaginal bleeding, stopped 5. Uterine fibroid, follow up with [facility] [facility] 6. History of deep vein thrombosis.. Result Diagram: 09/16/1840 09/16/18 0540 Results 24hrs Laboratory Tests Test 09/16/18 05:40 White Blood Count 14.8 H Red Blood Count 3.66 L Hemoglobin 8.4 L Hematocrit 28.6 L Mean Corpuscular Volume 78.1 L Mean Corpuscular Hemoglobin 23.0 L Mean Corpuscular Hemoglobin Concent 29.4 L Red Cell Distribution Width 21.7 H Platelet Count 589 H Mean Platelet Volume 10.3 Immature Granulocytes % 2.200 H Neutrophils % 82.5 H Lymphocytes % 6.2 L Monocytes % 6.8 Eosinophils % 1.8 Basophils % 0.5 Nucleated Red Blood Cells % 0.5 H Immature Granulocytes # 0.320 H Neutrophils # 12.2 H Lymphocytes # 0.9 Monocytes # 1.0 H Eosinophils # 0.3 Basophils # 0.1 Nucleated Red Blood Cells # 0.1 H Sodium Level 139 Potassium Level 3.8 Chloride Level 110 Carbon Dioxide Level 22 Anion Gap 7 Blood Urea Nitrogen 11 Creatinine 1.11 H Est Glomerular Filtrat Rate mL/min 52 L Glucose Level 147 Calcium Level 8.3 L Subjective 24 Hr Interval Summary Free Text/Dictation vaginal bleeding stopped yesterday Exam/Review of Systems Exam Vitals Vital Signs Date Temp Pulse Resp B/P (MAP) Pulse Ox O2 O2 Flow FiO2 Time Delivery Rate 09/16/18 98.7 86 16 125/58 98 Nasal 11:41 (80) Cannula 09/16/18 2.0 08:30 Intake and Output 09/15/18 09/15/18 09/16/18 1414:59 22:59 06:59 IntakeIntake Total 1660 ml 1500 ml BalanceBalance 1660 ml 1500 ml Constitutional: alert, oriented, well developed Psych: no complaints, nl mood/affect Head: normocephalic, atraumatic Eyes: nl conjunctiva, EOMI, nl lids ENMT: nl external ears & nose, nl lips & teeth, nl nasal mucosa & septum Neck: non-tender Respiratory: clear to auscultation, diminished breath sounds (on right) Cardiovascular: regular rate and rhythm, nl pulses; No bruits, No diastolic murmur, No edema, No gallop, No irregular rhythm, No jugular venous distention (JVD), No murmurs/extra sounds, No rub, No systolic murmur, No S3, No S4, No other Gastrointestinal: soft, nl liver, spleen, non-tender Musculoskeletal: nl extremities to inspection Extremities: normal pulses; No calf tenderness, No cyanosis, No clubbing, No edema, No pitting pedal edema, No palpable cord, No tenderness, No other Neurological: CUTTER GAS II-XII intact, nl mental status, nl speech, nl strength Results Results 24hrs Laboratory Tests Test 09/16/18 05:40 White Blood Count 14.8 H Red Blood Count 3.66 L Hemoglobin 8.4 L Hematocrit 28.6 L Mean Corpuscular Volume 78.1 L Mean Corpuscular Hemoglobin 23.0 L Mean Corpuscular Hemoglobin Concent 29.4 L Red Cell Distribution Width 21.7 H Platelet Count 589 H Mean Platelet Volume 10.3 Immature Granulocytes % 2.200 H Neutrophils % 82.5 H Lymphocytes % 6.2 L Monocytes % 6.8 Eosinophils % 1.8 Basophils % 0.5 Nucleated Red Blood Cells % 0.5 H Immature Granulocytes # 0.320 H Neutrophils # 12.2 H Lymphocytes # 0.9 Monocytes # 1.0 H Eosinophils # 0.3 Basophils # 0.1 Nucleated Red Blood Cells # 0.1 H Sodium Level 139 Potassium Level 3.8 Chloride Level 110 Carbon Dioxide Level 22 Anion Gap 7 Blood Urea Nitrogen 11 Creatinine 1.11 H Est Glomerular Filtrat Rate mL/min 52 L Glucose Level 147 Calcium Level 8.3 L Medications Medication Current Medications IV Flush (NS 3 ml) 3 ml PER PROTOCOL IV ; Start 09/12/18 at 07:00 Ondansetron HCl (Zofran Inj) 4 mg Q6H PRN IV NAUSEA/VOMITING Last administered on 09/16/18at 09:36; Admin Dose 4 MG; Start 09/12/18 at 07:00 Acetaminophen (Tylenol Tab) 650 mg Q6H PRN PO .PAIN 1-3 OR TEMP; Start 09/12/18 at 07:00 Acetaminophen/ Hydrocodone Bitart ([place] (5/325)) 1 tab Q6H PRN PO .PAIN 4-6; Start 09/12/18 at 07:00 Albuterol/ Ipratropium (Duoneb) 3 ml Q2H RESP THERAPY PRN HHN SHORTNESS OF BREATH; Start 09/12/18 at 07:00 Clonazepam (Klonopin) 1 mg BID PRN PO ANXIETY; Start 09/12/18 at 07:00 Pantoprazole (Protonix Tab) 40 mg AC BREAKFAST PO Last administered on 09/16/18at 06:14; Admin Dose 40 MG; Start 09/12/18 at 07:00 Sodium Chloride 1,000 ml @ 100 mls/hr Q10H IV Last administered on 09/16/18at 04:52; Admin Dose 100 MLS/HR; Start 09/12/18 at 07:30 Ibuprofen (Motrin) 400 mg Q6H PRN PO MILD PAIN(1-3) OR TEMP>38C Last administered on 09/14/18at 18:13; Admin Dose 400 MG; Start 09/12/18 at 11:00 Tramadol HCl (Ultram) 50 mg Q6H PRN PO MODERATE PAIN LEVEL 4-6; Start 09/12/18 at 11:00 Ferric Sodium Gluconate Complex 125 mg/Sodium Chloride 110 ml @ 110 mls/hr DAILY@1300 IVPB Last administered on 09/15/18at 13:22; Admin Dose 110 MLS/HR; Start 09/12/18 at 18:00; Stop 09/16/18 at 13:59 Miscellaneous Information 240 mg BID PO ; Start 09/12/18 at 17:30; Status UNV Levofloxacin/ Dextrose 150 ml @ 100 mls/hr Q24H IVPB Last administered on 09/15/18at 16:55; Admin Dose 100 MLS/HR; Start 09/13/18 at 17:00; Stop 09/23/18 at 16:59 Miscellaneous Information (*Order Clarification Bulletin) MEDICATION REQUIRES CLARIFICATION:TE... Q8H XX Last administered on 09/16/18 05:01; Admin Dose 1 EA; Start 09/14/18 at 12:30 Docusate Sodium (Colace) 250 mg HS PO Last administered on 09/15/18 21:21; Admin Dose 250 MG; Start 09/14/18 at 21:00 Medroxyprogesterone Acetate (Provera) 10 mg DAILY PO Last administered on 09/16/18at 09:32; Admin Dose 10 MG; Start 09/15/18 at 13:00; Stop 09/20/18 at 12:59 Ascorbic Acid (Vitamin C) 500 mg QHS PO Last administered on 09/15/18 21:21; Admin Dose 500 MG; Start 09/15/18 at 21:00 Ferrous Sulfate (Ferrous Sulfate (Ec)) 325 mg QHS PO Last administered on 09/15 21:21; Admin Dose 325 MG; Start 09/15/18 at 21:00 Ethinyl Estradiol/ Norethindrone (Nortrel 0.5-35-28 Tablet) 1 each QHS PO Last administered on 09/15/18 21:21; Admin Dose 1 EACH; Start 09/15/18 at 21:00 Meropenem/Sodium Chloride 50 ml @ 100 mls/hr Q8 IVPB ; Start 09/16/18 at 14:00 FREDI OCASIO MD Sep 16, 2018 13:39
[2018-09-16] MEDS: SOD FERRIC GLUC COMPLX 125 MG in SOD CHLORIDE 0.9% 100 ML IVPB SCH (16:02)
[2018-09-16] MEDS: MEROPENEM 1 GM/50ML(PMX) 50 ML IVPB SCH ×2 (16:03→22:23)
[2018-09-16] MEDS: LEVOFLOXACIN 750MG/D5W (PMX) 150 ML IVPB SCH (19:01)
--- NOTE | 2018-09-16 20:37 | PN ---
DATE: 09/16/2018 SUBJECTIVE: The patient does complain of epigastric abdominal pain, nausea and vomiting. She states that this pain has been present now for 5 days continuously, not necessarily affected by food. As mentioned, she has had nausea and vomiting, but apparently has been no hematemesis. States the pain is constant, not cramping. OBJECTIVE: GENERAL: The patient is a well-developed, well-nourished female who does not appear to be in distres s. VITAL SIGNS: Temperature 98.1 orally, pulse 80 per minute and regular, respirations 18, blood pressu re 139/63, pulse oximetry 98% on 2 liters by nasal cannula. SKIN: Pale, but no ecchymosis. No petechia or rashes. HEENT: Normocephalic. No evidence of trauma. Pupils are equal, round, react to accommodation. Scl erae are nonicteric. Oral mucosa is moist without lesions. Tongue is well papillated. Oral mucosa and conjunctivae are pale. NECK: Supple. No jugular venous distention. No thyroid enlargement. CHEST: Clear to auscultation and percussion. No rhonchi, wheezes, rubs. I cannot hear any rales in the right mid lung field. HEART: Regular sinus rhythm. No S3, S4 or murmurs. No rubs. NODES: No palpable lymphadenopathy. ABDOMEN: Mildly obese, but soft. There is no guarding. There is no rebound tenderness. Bowel soun ds are active. EXTREMITIES: No clubbing, edema or cyanosis. No palpable cords or Homans sign. NEUROLOGIC: Normal. LABORATORY DATA: White count is 14,800 with an absolute neutrophil count of 12,200, hemoglobin 8.4, hematocrit 28.6, MCV is 78.1 and platelet count is 589,000. Sodium 139, potassium 3.8, creatinine 1.100 and BUN is 11. Previously noted, CEA is 3.4, CA-125 of 24.3. ASSESSMENT: 1. Iron deficiency anemia. 2. Multiple sclerosis. 3. History of deep vein thrombosis. 4. Right middle lobe infiltrate versus mass. DISCUSSION: The patient has now received 625 mg of elemental iron and given in 5 infusions. The etiology of the patient's epigastric pain is unclear. There are no findings on physical examinat ion. The patient is on pantoprazole. She does have complaints of nausea, vomiting, but no hematemesis. Previously, stool collected for oc cult blood previously was negative. If the patient's abdominal pain continues, the patient may require an upper GI endoscopy. It is unlikely that the patient's abdominal pain is related to the patient's pneumonic process. We will start the patient on metoclopramide 10 mg every 6 hours to see if this can control the patien t's nausea. Dictated By: DONAVON ANGULO MD SR/NTS Conf#: [id number] DID#: [id number] CC: CLEO FARRIS MD; HANNAH HAWKINS MD; FREDI OCASIO MD;*EndCC*
[2018-09-16] MEDS: FERROUS SULFATE (EC) 325 MG TAB PO SCH (21:06)
[2018-09-16] MEDS: ASCORBIC ACID 500 MG TAB PO SCH (21:06)
[2018-09-16] MEDS: DOCUSATE SODIUM 250 MG CAP PO SCH (21:06)
[2018-09-16] MEDS: IBUPROFEN 400 MG TAB PO PRN (21:07)
[2018-09-16] MEDS: NORETHINDRONE-ETHINYL ESTR 0.5-35 TAB PO SCH (22:22)
[2018-09-17] VITALS (10 sets, daily range): BP systolic 117–132; BP diastolic 56–64; PULSE 74–101; RESP 16–22
[2018-09-17] MEDS: METOCLOPRAMIDE 10 MG INJ IV SCH ×4 (00:30→18:00)
[2018-09-17] MEDS: [UNRECOGNIZED DRUG - REMARK] XX SCH ×3 (04:30→20:03)
[2018-09-17] MEDS: SOD CHLORIDE 0.9% 1,000 ML IV SCH ×4 (05:50→21:04)
[2018-09-17] MEDS: MEROPENEM 1 GM/50ML(PMX) 50 ML IVPB SCH ×3 (05:51→21:04)
[2018-09-17] MEDS: PANTOPRAZOLE (EC) 40 MG TAB PO SCH (06:13)
--- NOTE | 2018-09-17 06:39 | CONS ---
Assessment/Plan Assessment/Plan Hospital Course (Demo Recall) 1)RML pneumonia with possible abscess the area of question for abscess is small and likely antibiotics alone will be sufficient CT chest did not suggest PE the development of possible abscess suggests aspiration respiratory cx was ordered but have asked nurse to place sputum container by her bedside and encourage daughter to collect I will also order nasal for MRSA continue with vanco/zosyn/levo at present 09/14 - sputum cx is pending but according to patient it was collected improved symptoms and WBC continue with vanco/zosyn/levaquin at present but will re-evaluate when more micro lab results are in 09/15 - sputum cx and nasal cx are neg, no further fevers and wbc is a bit improved today d/c vanco, continue with zosyn/levo at present 09/16 - WBC count is stalled but clinically she is better pt has N and vomited yesterday, not sure if it is the iron infusion or possibly the zosyn d/c zosyn and start merrem and continue thru 09/19 continue levaquin thru 09/18 if WBC not improving will need to re-image area of possible lung abscess 09/17 - improved nausea, on merrem/levaquin CXR unable to assess the potential abscess site well WBC is improved though consider chest CT w/o contrast 2)MS 3) hx of DVT 4) Fe deficiency anemia now on IV iron 09/14 - pt pelvic u/s showed fibroids but pt denies vaginal bleeding except during her menstrual cycle for 3-4 days 09/15- decrease in Hgb is noted 09/16 - improvement in Hgb this a.m. pt has N and occasionally vomiting, may be related to the iron 09/17 - stable Hgb Consultation Date/Type/Reason Admit Date/Time Sep 12, 2018 at 06:02 Initial Consult Date 09/13/18 Type of Consult IS Requesting Provider: CLEO FARRIS MD Date/Time of Note DATE: 09/17/18 TIME: 06:35 24 HR Interval Summary Free Text/Dictation pt has less nausea still not eating much breathing is not bad and minimal cough no diarrhea still has R sided abd/chest pain but motrin seems to control it Exam/Review of Systems Exam Vitals Vital Signs Date Temp Pulse Resp B/P (MAP) Pulse Ox O2 O2 Flow FiO2 Time Delivery Rate 09/17/18 98.1 87 18 119/56 98 04:00 (77) 09/16/18 Nasal 2.0 21:05 Cannula Intake and Output 09/16/18 09/16/18 09/17/18 1515:00 23:00 07:00 IntakeIntake Total 1070 ml 1000 ml BalanceBalance 1070 ml 1000 ml Constitutional: alert Respiratory: clear to auscultation Cardiovascular: regular rate and rhythm Gastrointestinal: soft, non-tender Results Result Diagram: 09/17/1851809/17/18518 Results 24hrs Laboratory Tests Test 09/17/18 05:19 White Blood Count 13.9 H Red Blood Count 3.65 L Hemoglobin 8.4 L Hematocrit 28.4 L Mean Corpuscular Volume 77.8 L Mean Corpuscular Hemoglobin 23.0 L Mean Corpuscular Hemoglobin Concent 29.6 L Red Cell Distribution Width 23.8 H Platelet Count 582 H Mean Platelet Volume 9.9 Immature Granulocytes % 1.900 H Neutrophils % 80.9 H Lymphocytes % 7.8 L Monocytes % 6.6 Eosinophils % 2.4 Basophils % 0.4 Nucleated Red Blood Cells % 0.2 H Immature Granulocytes # 0.270 H Neutrophils # 11.3 H Lymphocytes # 1.1 Monocytes # 0.9 Eosinophils # 0.3 Basophils # 0.1 Nucleated Red Blood Cells # 0.0 Sodium Level 139 Potassium Level 3.3 L Chloride Level 108 Carbon Dioxide Level 24 Anion Gap 7 Blood Urea Nitrogen 9 Creatinine 1.01 H Est Glomerular Filtrat Rate mL/min 58 L Glucose Level 110 Calcium Level 8.0 L Medications Medication Current Medications IV Flush (NS 3 ml) 3 ml PER PROTOCOL IV ; Start 09/12/18 at 07:00 Ondansetron HCl (Zofran Inj) 4 mg Q6H PRN IV NAUSEA/VOMITING Last administered on 09/16/18at 19:01; Admin Dose 4 MG; Start 09/12/18 at 07:00 Acetaminophen (Tylenol Tab) 650 mg Q6H PRN PO .PAIN 1-3 OR TEMP; Start 09/12/18 at 07:00 Acetaminophen/ Hydrocodone Bitart ([place] (5/325)) 1 tab Q6H PRN PO .PAIN 4-6; Start 09/12/18 at 07:00 Albuterol/ Ipratropium (Duoneb) 3 ml Q2H RESP THERAPY PRN HHN SHORTNESS OF BREATH; Start 09/12/18 at 07:00 Clonazepam (Klonopin) 1 mg BID PRN PO ANXIETY; Start 09/12/18 at 07:00 Pantoprazole (Protonix Tab) 40 mg AC BREAKFAST PO Last administered on 09/17/18 06:13; Admin Dose 40 MG; Start 09/12/18 at 07:00 Sodium Chloride 1,000 ml @ 100 mls/hr Q10H IV Last administered on 09/17/18 05:50; Admin Dose 100 MLS/HR; Start 09/12/18 at 07:30 Ibuprofen (Motrin) 400 mg Q6H PRN PO MILD PAIN(1-3) OR TEMP>38C Last administered on 09/16/18 21:07; Admin Dose 400 MG; Start 09/12/18 at 11:00 Tramadol HCl (Ultram) 50 mg Q6H PRN PO MODERATE PAIN LEVEL 4-6; Start 09/12/18 at 11:00 Miscellaneous Information 240 mg BID PO ; Start 09/12/18 at 17:30; Status UNV Levofloxacin/ Dextrose 150 ml @ 100 mls/hr Q24H IVPB Last administered on 19:01; Admin Dose 100 MLS/HR; Start 09/13/18 at 17:00; Stop 09/23/18 at 16:59 Miscellaneous Information (*Order Clarification Bulletin) MEDICATION REQUIRES CLARIFICATION:TE... Q8H XX Last administered on 09/16/18 05:01; Admin Dose 1 EA; Start 09/14/18 at 12:30 Docusate Sodium (Colace) 250 mg HS PO Last administered on 09/16/18 21:06; Admin Dose 250 MG; Start 09/14/18 at 21:00 Medroxyprogesterone Acetate (Provera) 10 mg DAILY PO Last administered on 09/16/18 09:32; Admin Dose 10 MG; Start 09/15/18 at 13:00; Stop 09/20/18 at 12:59 Ascorbic Acid (Vitamin C) 500 mg QHS PO Last administered on 09/16/18 21:06; Admin Dose 500 MG; Start 09/15/18 at 21:00 Ferrous Sulfate (Ferrous Sulfate (Ec)) 325 mg QHS PO Last administered on 09/16/18at 21:06; Admin Dose 325 MG; Start 09/15/18 at 21:00 Ethinyl Estradiol/ Norethindrone (Nortrel 0.5-35-28 Tablet) 1 each QHS PO Last administered on 09/16/18at 22:22; Admin Dose 1 EACH; Start 09/15/18 at 21:00 Meropenem/Sodium Chloride 50 ml @ 100 mls/hr Q8 IVPB Last administered on 09/17/18at 05:51; Admin Dose 100 MLS/HR; Start 09/16/18 at 14:00 Metoclopramide HCl (Reglan) 10 mg Q6 IV Last administered on 09/17/18 05:50; Admin Dose 10 MG; Start 09/17/18 at 00:00 RUPA RASHEED MD Sep 17, 2018 06:39
[2018-09-17] MEDS: BALSAM PERU/CASTOR OIL 60 GM TUBE TOP SCH ×2 (09:14→21:05)
[2018-09-17] MEDS: MEDROXYPROGESTERONE 10 MG TAB PO SCH (09:15)
--- NOTE | 2018-09-17 12:15 | CONS ---
Consult Date/Type/Reason Admit Date/Time Sep 12, 2018 at 06:02 Initial Consult Date 09/13/18 Type of Consult Pulmonary Requesting Provider: CLEO FARRIS MD Date/Time of Note DATE: 09/17/18 TIME: 12:14 Subjective Patient stable this morning still has mild exertional dyspnea. Chest x-ray shows increasing right effusion. Objective Vital Signs Date Temp Pulse Resp B/P (MAP) Pulse Ox O2 O2 Flow FiO2 Time Delivery Rate 09/17/18 85 12:06 09/17/18 97.9 18 122/58 98 Nasal 11:33 (79) Cannula 09/17/18 1.5 08:30 Intake and Output 09/16/18 09/16/18 09/17/18 1515:00 23:00 07:00 IntakeIntake Total 1070 ml 2250 ml BalanceBalance 1070 ml 2250 ml Exam GENERAL: VITAL SIGNS: per chart well-nourished well-developed lady comfortable at rest no acute distress NECK: Supple. No JVD or lymphadenopathy. CARDIAC EXAM: S1, S2. No added sounds or murmurs. CHEST: clear bilaterally, No added sounds, rales or wheezes ABDOMEN: Soft, nontender. No guarding or rebound. EXTREMITIES: No cyanosis, clubbing or edema. NEUROLOGIC: Generalized weakness. No focal deficits. Results/Medications Result Diagram: 09/17/1851809/17/18518 Results 24 hrs Laboratory Tests Test 09/17/18 05:19 09/17/18 07:44 White Blood Count 13.9 H Red Blood Count 3.65 L Hemoglobin 8.4 L Hematocrit 28.4 L Mean Corpuscular Volume 77.8 L Mean Corpuscular Hemoglobin 23.0 L Mean Corpuscular Hemoglobin Concent 29.6 L Red Cell Distribution Width 23.8 H Platelet Count 582 H Mean Platelet Volume 9.9 Immature Granulocytes % 1.900 H Neutrophils % 80.9 H Lymphocytes % 7.8 L Monocytes % 6.6 Eosinophils % 2.4 Basophils % 0.4 Nucleated Red Blood Cells % 0.2 H Immature Granulocytes # 0.270 H Neutrophils # 11.3 H Lymphocytes # 1.1 Monocytes # 0.9 Eosinophils # 0.3 Basophils # 0.1 Nucleated Red Blood Cells # 0.0 Sodium Level 139 Potassium Level 3.3 L Chloride Level 108 Carbon Dioxide Level 24 Anion Gap 7 Blood Urea Nitrogen 9 Creatinine 1.01 H Est Glomerular Filtrat Rate mL/min 58 L Glucose Level 110 Calcium Level 8.0 L Lab Scanned Report BLOOD TRANSFUSION Medications Current Medications IV Flush (NS 3 ml) 3 ml PER PROTOCOL IV ; Start 09/12/18 at 07:00 Ondansetron HCl (Zofran Inj) 4 mg Q6H PRN IV NAUSEA/VOMITING Last administered on 09/16/18at 19:01; Admin Dose 4 MG; Start 09/12/18 at 07:00 Acetaminophen (Tylenol Tab) 650 mg Q6H PRN PO .PAIN 1-3 OR TEMP; Start 09/12/18 at 07:00 Acetaminophen/ Hydrocodone Bitart ([place] (5/325)) 1 tab Q6H PRN PO .PAIN 4-6; Start 09/12/18 at 07:00 Albuterol/ Ipratropium (Duoneb) 3 ml Q2H RESP THERAPY PRN HHN SHORTNESS OF BREATH; Start 09/12/18 at 07:00 Clonazepam (Klonopin) 1 mg BID PRN PO ANXIETY; Start 09/12/18 at 07:00 Pantoprazole (Protonix Tab) 40 mg AC BREAKFAST PO Last administered on 09/17/18at 06:13; Admin Dose 40 MG; Start 09/12/18 at 07:00 Sodium Chloride 1,000 ml @ 100 mls/hr Q10H IV Last administered on 09/17/18at 05:50; Admin Dose 100 MLS/HR; Start 09/12/18 at 07:30 Ibuprofen (Motrin) 400 mg Q6H PRN PO MILD PAIN(1-3) OR TEMP>38C Last administered on 09/16/18at 21:07; Admin Dose 400 MG; Start 09/12/18 at 11:00 Tramadol HCl (Ultram) 50 mg Q6H PRN PO MODERATE PAIN LEVEL 4-6; Start 09/12/18 at 11:00 Miscellaneous Information 240 mg BID PO ; Start 09/12/18 at 17:30; Status UNV Levofloxacin/ Dextrose 150 ml @ 100 mls/hr Q24H IVPB Last administered on at 19:01; Admin Dose 100 MLS/HR; Start 09/13/18 at 17:00; Stop 09/23/18 at 16:59 Miscellaneous Information (*Order Clarification Bulletin) MEDICATION REQUIRES CLARIFICATION:TE... Q8H XX Last administered on 09/16/18 05:01; Admin Dose 1 EA; Start 09/14/18 at 12:30 Docusate Sodium (Colace) 250 mg HS PO Last administered on 09/16/18 21:06; Admin Dose 250 MG; Start 09/14/18 at 21:00 Medroxyprogesterone Acetate (Provera) 10 mg DAILY PO Last administered on 09/17/18 09:15; Admin Dose 10 MG; Start 09/15/18 at 13:00; Stop 09/20/18 at 12:59 Ascorbic Acid (Vitamin C) 500 mg QHS PO Last administered on 09/16/18 21:06; Admin Dose 500 MG; Start 09/15/18 at 21:00 Ferrous Sulfate (Ferrous Sulfate (Ec)) 325 mg QHS PO Last administered on 09/16/18 21:06; Admin Dose 325 MG; Start 09/15/18 at 21:00 Ethinyl Estradiol/ Norethindrone (Nortrel 0.5-35-28 Tablet) 1 each QHS PO Last administered on 09/16/18 22:22; Admin Dose 1 EACH; Start 09/15/18 at 21:00 Meropenem/Sodium Chloride 50 ml @ 100 mls/hr Q8 IVPB Last administered on 09/17/18 05:51; Admin Dose 100 MLS/HR; Start 09/16/18 at 14:00 Metoclopramide HCl (Reglan) 10 mg Q6 IV Last administered on 09/17/18 05:50; Admin Dose 10 MG; Start 09/17/18 at 00:00 Assessment/Plan Hospital Course (Demo Recall) Assessment 1. History of menorrhagia and iron deficiency anemia 2. History of thromboembolic disease on anticoagulation 3. Progressive right effusion on chest x-ray today. Plan 1. Continue antibiotics 2. Iron replacement 3. Encourage out of bed 4. Thoracentesis right pleural fluid with pleural fluid studies including cytology. Consider DC planning after thoracentesis. CECELIA BALL MD, FCCP Sep 17, 2018 12:15
[2018-09-17] MEDS ORDERED: POTASSIUM CHLORIDE (SR) 20 MEQ TAB PO STA (14:12)
--- NOTE | 2018-09-17 14:18 | PN ---
Date/Time of Note Date/Time of Note DATE: 09/17/18 TIME: 14:12 Assessment/Plan VTE Prophylaxis Risk score (from Ns)>0 risk: 4 SCD applied (from [facility]): Yes Pharmacological prophylaxis: other Pharm contraindication: other Lines/Catheters IV Catheter Type (from [facility]): Mid Line Urinary Cath still in place: No Assessment/Plan Assessment/Plan 1. Right middle lobe pneumonia, on meropenem and levaquin, follow up with ID 2. Multiple sclerosis with functional quadriplegia, chronic, supportive care 3. Anemia due to iron deficiency, on iron supplement 4. Abnormal vaginal bleeding, stopped 5. Uterine fibroid, follow up with [employer] 6. History of deep vein thrombosis.. 7. Right pleural effusion, thoracentesis today 8. Hypokalemia, KCL Result Diagram: 09/17/1851809/17/18518 Results 24hrs Laboratory Tests Test 09/17/18 05:19 09/17/18 07:44 White Blood Count 13.9 H Red Blood Count 3.65 L Hemoglobin 8.4 L Hematocrit 28.4 L Mean Corpuscular Volume 77.8 L Mean Corpuscular Hemoglobin 23.0 L Mean Corpuscular Hemoglobin Concent 29.6 L Red Cell Distribution Width 23.8 H Platelet Count 582 H Mean Platelet Volume 9.9 Immature Granulocytes % 1.900 H Neutrophils % 80.9 H Lymphocytes % 7.8 L Monocytes % 6.6 Eosinophils % 2.4 Basophils % 0.4 Nucleated Red Blood Cells % 0.2 H Immature Granulocytes # 0.270 H Neutrophils # 11.3 H Lymphocytes # 1.1 Monocytes # 0.9 Eosinophils # 0.3 Basophils # 0.1 Nucleated Red Blood Cells # 0.0 Sodium Level 139 Potassium Level 3.3 L Chloride Level 108 Carbon Dioxide Level 24 Anion Gap 7 Blood Urea Nitrogen 9 Creatinine 1.01 H Est Glomerular Filtrat Rate mL/min 58 L Glucose Level 110 Calcium Level 8.0 L Lab Scanned Report BLOOD TRANSFUSION Subjective 24 Hr Interval Summary Free Text/Dictation no nausea or vomiting, no distress Exam/Review of Systems Exam Vitals Vital Signs Date Temp Pulse Resp B/P (MAP) Pulse Ox O2 O2 Flow FiO2 Time Delivery Rate 09/17/18 85 12:06 09/17/18 97.9 18 122/58 98 Nasal 11:33 (79) Cannula 09/17/18 1.5 08:30 Intake and Output 09/16/18 09/16/18 09/17/18 1515:00 23:00 07:00 IntakeIntake Total 1070 ml 2250 ml BalanceBalance 1070 ml 2250 ml Constitutional: alert, oriented, well developed Psych: no complaints, nl mood/affect Head: normocephalic, atraumatic Eyes: nl conjunctiva, EOMI, nl lids, PERRL ENMT: nl external ears & nose, nl lips & teeth, nl nasal mucosa & septum, mucosa pink and moist Neck: supple, non-tender Respiratory: diminished breath sounds (on right) Cardiovascular: regular rate and rhythm, nl pulses Gastrointestinal: soft, nl liver, spleen, non-tender; No ascites, No bowel sounds, No distended, No firm, No hepatomegaly, No mass, No rebound or guarding, No splenomegaly, No surgical scars, No tender, No other Musculoskeletal: nl extremities to inspection Extremities: normal pulses; No calf tenderness, No cyanosis, No clubbing, No edema, No pitting pedal edema, No palpable cord, No tenderness, No other Neurological: [employer] II-XII intact, nl mental status, nl speech, nl strength Skin: nl turgor Results Results 24hrs Laboratory Tests Test 09/17/18 05:19 09/17/18 07:44 White Blood Count 13.9 H Red Blood Count 3.65 L Hemoglobin 8.4 L Hematocrit 28.4 L Mean Corpuscular Volume 77.8 L Mean Corpuscular Hemoglobin 23.0 L Mean Corpuscular Hemoglobin Concent 29.6 L Red Cell Distribution Width 23.8 H Platelet Count 582 H Mean Platelet Volume 9.9 Immature Granulocytes % 1.900 H Neutrophils % 80.9 H Lymphocytes % 7.8 L Monocytes % 6.6 Eosinophils % 2.4 Basophils % 0.4 Nucleated Red Blood Cells % 0.2 H Immature Granulocytes # 0.270 H Neutrophils # 11.3 H Lymphocytes # 1.1 Monocytes # 0.9 Eosinophils # 0.3 Basophils # 0.1 Nucleated Red Blood Cells # 0.0 Sodium Level 139 Potassium Level 3.3 L Chloride Level 108 Carbon Dioxide Level 24 Anion Gap 7 Blood Urea Nitrogen 9 Creatinine 1.01 H Est Glomerular Filtrat Rate mL/min 58 L Glucose Level 110 Calcium Level 8.0 L Lab Scanned Report BLOOD TRANSFUSION Medications Medication Current Medications IV Flush (NS 3 ml) 3 ml PER PROTOCOL IV ; Start 09/12/18 at 07:00 Ondansetron HCl (Zofran Inj) 4 mg Q6H PRN IV NAUSEA/VOMITING Last administered on 09/16/18at 19:01; Admin Dose 4 MG; Start 09/12/18 at 07:00 Acetaminophen (Tylenol Tab) 650 mg Q6H PRN PO .PAIN 1-3 OR TEMP; Start 09/12/18 at 07:00 Acetaminophen/ Hydrocodone Bitart ([place] (5/325)) 1 tab Q6H PRN PO .PAIN 4-6; Start 09/12/18 at 07:00 Albuterol/ Ipratropium (Duoneb) 3 ml Q2H RESP THERAPY PRN HHN SHORTNESS OF BREATH; Start 09/12/18 at 07:00 Clonazepam (Klonopin) 1 mg BID PRN PO ANXIETY; Start 09/12/18 at 07:00 Pantoprazole (Protonix Tab) 40 mg AC BREAKFAST PO Last administered on 09/17/18at 06:13; Admin Dose 40 MG; Start 09/12/18 at 07:00 Sodium Chloride 1,000 ml @ 100 mls/hr Q10H IV Last administered on 09/17/18at 05:50; Admin Dose 100 MLS/HR; Start 09/12/18 at 07:30 Ibuprofen (Motrin) 400 mg Q6H PRN PO MILD PAIN(1-3) OR TEMP>38C Last administered on 09/16/18at 21:07; Admin Dose 400 MG; Start 09/12/18 at 11:00 Tramadol HCl (Ultram) 50 mg Q6H PRN PO MODERATE PAIN LEVEL 4-6; Start 09/12/18 at 11:00 Miscellaneous Information 240 mg BID PO ; Start 09/12/18 at 17:30; Status UNV Levofloxacin/ Dextrose 150 ml @ 100 mls/hr Q24H IVPB Last administered on 09/16/18at 19:01; Admin Dose 100 MLS/HR; Start 09/13/18 at 17:00; Stop 09/23/18 at 16:59 Miscellaneous Information (*Order Clarification Bulletin) MEDICATION REQUIRES CLARIFICATION:TE... Q8H XX Last administered on 09/16/18 05:01; Admin Dose 1 EA; Start 09/14/18 at 12:30 Docusate Sodium (Colace) 250 mg HS PO Last administered on 09/16/18 21:06; Admin Dose 250 MG; Start 09/14/18 at 21:00 Medroxyprogesterone Acetate (Provera) 10 mg DAILY PO Last administered on 09/17/18 09:15; Admin Dose 10 MG; Start 09/15/18 at 13:00; Stop 09/20/18 at 12:59 Ascorbic Acid (Vitamin C) 500 mg QHS PO Last administered on 09/16/18 21:06; Admin Dose 500 MG; Start 09/15/18 at 21:00 Ferrous Sulfate (Ferrous Sulfate (Ec)) 325 mg QHS PO Last administered on 09/16/18 21:06; Admin Dose 325 MG; Start 09/15/18 at 21:00 Ethinyl Estradiol/ Norethindrone (Nortrel 0.5-35-28 Tablet) 1 each QHS PO Last administered on 09/16/18 22:22; Admin Dose 1 EACH; Start 09/15/18 at 21:00 Meropenem/Sodium Chloride 50 ml @ 100 mls/hr Q8 IVPB Last administered on 09/17/18 05:51; Admin Dose 100 MLS/HR; Start 09/16/18 at 14:00 Metoclopramide HCl (Reglan) 10 mg Q6 IV Last administered on 09/17/18 05:50; Admin Dose 10 MG; Start 09/17/18 at 00:00 FREDI OCASIO MD Sep 17, 2018 14:18
[2018-09-17] MEDS ORDERED: LIDOCAINE 1% (MPF) 5 ML VIAL ONE (17:20)
[2018-09-17] MEDS: LEVOFLOXACIN 750MG/D5W (PMX) 150 ML IVPB SCH (18:13)
[2018-09-17] MEDS: IBUPROFEN 400 MG TAB PO PRN (21:04)
[2018-09-17] MEDS: NORETHINDRONE-ETHINYL ESTR 0.5-35 TAB PO SCH (21:04)
[2018-09-17] MEDS: DOCUSATE SODIUM 250 MG CAP PO SCH (21:04)
[2018-09-17] MEDS: FERROUS SULFATE (EC) 325 MG TAB PO SCH (21:04)
[2018-09-17] MEDS: ASCORBIC ACID 500 MG TAB PO SCH (21:04)
[2018-09-18] VITALS (10 sets, daily range): BP systolic 120–135; BP diastolic 58–69; PULSE 83–101; RESP 17–20
[2018-09-18] MEDS: METOCLOPRAMIDE 10 MG INJ IV SCH ×4 (00:26→17:20)
[2018-09-18] MEDS: [UNRECOGNIZED DRUG - REMARK] XX SCH ×3 (04:30→20:09)
[2018-09-18] MEDS: MEROPENEM 1 GM/50ML(PMX) 50 ML IVPB SCH ×3 (06:16→21:11)
[2018-09-18] MEDS: PANTOPRAZOLE (EC) 40 MG TAB PO SCH (06:16)
--- NOTE | 2018-09-18 06:56 | CONS ---
Assessment/Plan Assessment/Plan Hospital Course (Demo Recall) 1)RML pneumonia with possible abscess the area of question for abscess is small and likely antibiotics alone will be sufficient CT chest did not suggest PE the development of possible abscess suggests aspiration respiratory cx was ordered but have asked nurse to place sputum container by her bedside and encourage daughter to collect I will also order nasal for MRSA continue with vanco/zosyn/levo at present 09/14 - sputum cx is pending but according to patient it was collected improved symptoms and WBC continue with vanco/zosyn/levaquin at present but will re-evaluate when more micro lab results are in 09/15 - sputum cx and nasal cx are neg, no further fevers and wbc is a bit improved today d/c vanco, continue with zosyn/levo at present 09/16 - WBC count is stalled but clinically she is better pt has N and vomited yesterday, not sure if it is the iron infusion or possibly the zosyn d/c zosyn and start merrem and continue thru 09/19 continue levaquin thru 09/18 if WBC not improving will need to re-image area of possible lung abscess 09/17 - improved nausea, on merrem/levaquin CXR unable to assess the potential abscess site well WBC is improved though consider chest CT w/o contrast 09/18 - R sided thorancentesis done yesterday and pt feels better pleural fluid is not infected and looks to be transudative (serum LDH was not done though) WBC remains mildly elevated and if not improved tomorrow will order chest CT last day for levaquin and if WBC is improved tomorrow will likely switch merrem to augmentin 2)MS 3) hx of DVT 4) Fe deficiency anemia now on IV iron 09/14 - pt pelvic u/s showed fibroids but pt denies vaginal bleeding except during her menstrual cycle for 3-4 days 09/15- decrease in Hgb is noted 09/16 - improvement in Hgb this a.m. pt has N and occasionally vomiting, may be related to the iron 09/17 - stable Hgb Consultation Date/Type/Reason Admit Date/Time Sep 12, 2018 at 06:02 Initial Consult Date 09/13/18 Type of Consult ID Requesting Provider: CLEO FARRIS MD Date/Time of Note DATE: 09/18/18 TIME: 06:52 24 HR Interval Summary Free Text/Dictation pt got thorancentesis yesterday the pain to chest and R side is improved no N, V, D Exam/Review of Systems Exam Vitals Vital Signs Date Temp Pulse Resp B/P (MAP) Pulse Ox O2 O2 Flow FiO2 Time Delivery Rate 09/18/18 83 04:00 09/18/18 98.4 18 128/68 95 04:00 (88) 09/17/18 Room Air 18:18 09/17/18 1.5 08:30 Intake and Output 09/17/18 09/17/18 09/18/18 1515:00 23:00 07:00 IntakeIntake Total 1000 ml OutputOutput Total 900 ml BalanceBalance 100 ml Constitutional: alert, oriented Eyes: nl sclera ENMT: mucosa pink and moist Respiratory: clear to auscultation Cardiovascular: regular rate and rhythm Gastrointestinal: soft, non-tender Results Result Diagram: 09/18/18 0543 09/17/18 0519 Results 24hrs Laboratory Tests Test 09/17/18 07:44 09/17/18 17:15 09/18/18 05:43 Lab Scanned Report BLOOD TRANSFUSION Body Fluid Type FLUID Body Fluid Volume 825.0 Body Fluid Color OLIVIER Body Fluid Appearance SLIGHTLY HAZY Body Fluid WBC 134 Body Fluid RBC (Auto) 5000 Body Fluid Polynuclear 44.8 WBCs (%) Body Fluid Mononuclear Cells % 55.2 Auto Body Fluid Glucose 174 Body Fluid Total Protein 2.4 Body Fluid 353 Lactate Dehydrogenase White Blood Count 14.4 H Red Blood Count 3.75 L Hemoglobin 8.7 L Hematocrit 29.7 L Mean Corpuscular Volume 79.2 L Mean Corpuscular Hemoglobin 23.2 L Mean Corpuscular 29.3 L Hemoglobin Concent Red Cell Distribution Width 25.1 H Platelet Count 609 H Mean Platelet Volume 10.2 Immature Granulocytes % 1.700 H Neutrophils % 83.2 H Lymphocytes % 8.1 L Monocytes % 4.9 Eosinophils % 1.7 Basophils % 0.4 Nucleated Red Blood Cells % 0.1 H Immature Granulocytes # 0.250 H Neutrophils # 11.9 H Lymphocytes # 1.2 Monocytes # 0.7 Eosinophils # 0.3 Basophils # 0.1 Nucleated Red Blood Cells # 0.0 Medications Medication Current Medications IV Flush (NS 3 ml) 3 ml PER PROTOCOL IV ; Start 09/12/18 at 07:00 Ondansetron HCl (Zofran Inj) 4 mg Q6H PRN IV NAUSEA/VOMITING Last administered on 09/16/18 19:01; Admin Dose 4 MG; Start 09/12/18 at 07:00 Acetaminophen (Tylenol Tab) 650 mg Q6H PRN PO .PAIN 1-3 OR TEMP; Start 09/12/18 at 07:00 Acetaminophen/ Hydrocodone Bitart ([place] (5/325)) 1 tab Q6H PRN PO .PAIN 4-6; Start 09/12/18 at 07:00 Albuterol/ Ipratropium (Duoneb) 3 ml Q2H RESP THERAPY PRN HHN SHORTNESS OF CANDIDA ATH; Start 09/12/18 at 07:00 Clonazepam (Klonopin) 1 mg BID PRN PO ANXIETY; Start 09/12/18 at 07:00 Pantoprazole (Protonix Tab) 40 mg AC BREAKFAST PO Last administered on 09/18/18at 06:16; Admin Dose 40 MG; Start 09/12/18 at 07:00 Sodium Chloride 1,000 ml @ 100 mls/hr Q10H IV Last administered on 09/17/18 21:04; Admin Dose 100 MLS/HR; Start 09/12/18 at 07:30 Ibuprofen (Motrin) 400 mg Q6H PRN PO MILD PAIN(1-3) OR TEMP>38C Last administered on 09/17/18 21:04; Admin Dose 400 MG; Start 09/12/18 at 11:00 Tramadol HCl (Ultram) 50 mg Q6H PRN PO MODERATE PAIN LEVEL 4-6; Start 09/12/18 at 11:00 Miscellaneous Information 240 mg BID PO ; Start 09/12/18 at 17:30; Status UNV Levofloxacin/ Dextrose 150 ml @ 100 mls/hr Q24H IVPB Last administered on 09/17/18 18:13; Admin Dose 100 MLS/HR; Start 09/13/18 at 17:00; Stop 09/23/18 at 16:59 Miscellaneous Information (*Order Clarification Bulletin) MEDICATION REQUIRES CLARIFICATION:TE... Q8H XX Last administered on 09/18/18at 04:30; Admin Dose 1 EA ; Start 09/14/18 at 12:30 Docusate Sodium (Colace) 250 mg HS PO Last administered on 09/17/18 21:04; Admin Dose 250 MG; Start 09/14/18 at 21:00 Medroxyprogesterone Acetate (Provera) 10 mg DAILY PO Last administered on 09/17/18 09:15; Admin Dose 10 MG; Start 09/15/18 at 13:00; Stop 09/20/18 at 12:59 Ascorbic Acid (Vitamin C) 500 mg QHS PO Last administered on 09/17/18 21:04; Admin Dose 500 MG; Start 09/15/18 at 21:00 Ferrous Sulfate (Ferrous Sulfate (Ec)) 325 mg QHS PO Last administered on 09/17 21:04; Admin Dose 325 MG; Start 09/15/18 at 21:00 Ethinyl Estradiol/ Norethindrone (Nortrel 0.5-35-28 Tablet) 1 each QHS PO Last administered on 09/17/18 21:04; Admin Dose 1 EACH; Start 09/15/18 at 21:00 Meropenem/Sodium Chloride 50 ml @ 100 mls/hr Q8 IVPB Last administered on 09/18/18 06:16; Admin Dose 100 MLS/HR; Start 09/16/18 at 14:00 Metoclopramide HCl (Reglan) 10 mg Q6 IV Last administered on 09/18/18 06:16; Admin Dose 10 MG; Start 09/17/18 at 00:00 RUPA RASHEED MD Sep 18, 2018 06:56
[2018-09-18] MEDS: MEDROXYPROGESTERONE 10 MG TAB PO SCH (08:20)
[2018-09-18] MEDS: BALSAM PERU/CASTOR OIL 60 GM TUBE TOP SCH ×2 (08:21→21:11)
[2018-09-18] MEDS: SOD CHLORIDE 0.9% 1,000 ML IV SCH ×3 (08:21→23:30)
--- NOTE | 2018-09-18 11:35 | CONS ---
Consult Date/Type/Reason Admit Date/Time Sep 12, 2018 at 06:02 Initial Consult Date 09/13/18 Type of Consult Pulmonary Requesting Provider: CLEO FARRIS MD Date/Time of Note DATE: 09/18/18 TIME: 11:31 Subjective Feels better after thoracentesis 900cc. cxr shows possible reaccumulation Objective Vital Signs Date Temp Pulse Resp B/P (MAP) Pulse Ox O2 O2 Flow FiO2 Time Delivery Rate 09/18/18 Nasal 2.0 09:20 Cannula 09/18/18 98.8 89 20 135/63 95 08:07 (87) Intake and Output 09/17/18 09/17/18 09/18/18 1414:59 22:59 06:59 IntakeIntake Total 2050 ml 1400 ml OutputOutput Total 900 ml BalanceBalance 1150 ml 1400 ml Exam GENERAL: VITAL SIGNS: per chart well-nourished well-developed lady comfortable at rest no acute distress NECK: Supple. No JVD or lymphadenopathy. CARDIAC EXAM: S1, S2. No added sounds or murmurs. CHEST: clear bilaterally, No added sounds, rales or wheezes ABDOMEN: Soft, nontender. No guarding or rebound. EXTREMITIES: No cyanosis, clubbing or edema. NEUROLOGIC: Generalized weakness. No focal deficits. Results/Medications Result Diagram: 09/18/18 0543 09/18/18 0543 Results 24 hrs Laboratory Tests Test 09/17/18 17:15 09/18/18 05:43 Body Fluid Type FLUID Body Fluid Volume 825.0 Body Fluid Color OLIVIER Body Fluid Appearance SLIGHTLY HAZY Body Fluid WBC 134 Body Fluid RBC (Auto) 5000 Body Fluid Polynuclear WBCs (%) 44.8 Body Fluid Mononuclear Cells % Auto 55.2 Body Fluid Glucose 174 Body Fluid Total Protein 2.4 Body Fluid Lactate Dehydrogenase 353 White Blood Count 14.4 H Red Blood Count 3.75 L Hemoglobin 8.7 L Hematocrit 29.7 L Mean Corpuscular Volume 79.2 L Mean Corpuscular Hemoglobin 23.2 L Mean Corpuscular Hemoglobin Concent 29.3 L Red Cell Distribution Width 25.1 H Platelet Count 609 H Mean Platelet Volume 10.2 Immature Granulocytes % 1.700 H Neutrophils % 83.2 H Lymphocytes % 8.1 L Monocytes % 4.9 Eosinophils % 1.7 Basophils % 0.4 Nucleated Red Blood Cells % 0.1 H Immature Granulocytes # 0.250 H Neutrophils # 11.9 H Lymphocytes # 1.2 Monocytes # 0.7 Eosinophils # 0.3 Basophils # 0.1 Nucleated Red Blood Cells # 0.0 Sodium Level 138 Potassium Level 3.8 Chloride Level 105 Carbon Dioxide Level 27 Anion Gap 6 Blood Urea Nitrogen 13 Creatinine 1.16 H Est Glomerular Filtrat Rate mL/min 49 L Glucose Level 123 Calcium Level 8.1 L Medications Current Medications IV Flush (NS 3 ml) 3 ml PER PROTOCOL IV ; Start 09/12/18 at 07:00 Ondansetron HCl (Zofran Inj) 4 mg Q6H PRN IV NAUSEA/VOMITING Last administered on 09/16/18at 19:01; Admin Dose 4 MG; Start 09/12/18 at 07:00 Acetaminophen (Tylenol Tab) 650 mg Q6H PRN PO .PAIN 1-3 OR TEMP; Start 09/12/18 at 07:00 Acetaminophen/ Hydrocodone Bitart ([place] (5/325)) 1 tab Q6H PRN PO .PAIN 4-6; Start 09/12/18 at 07:00 Albuterol/ Ipratropium (Duoneb) 3 ml Q2H RESP THERAPY PRN HHN SHORTNESS OF BREATH; Start 09/12/18 at 07:00 Clonazepam (Klonopin) 1 mg BID PRN PO ANXIETY; Start 09/12/18 at 07:00 Pantoprazole (Protonix Tab) 40 mg AC BREAKFAST PO Last administered on 09/18/18at 06:16; Admin Dose 40 MG; Start 09/12/18 at 07:00 Sodium Chloride 1,000 ml @ 100 mls/hr Q10H IV Last administered on 09/18/18at 08:21; Admin Dose 100 MLS/HR; Start 09/12/18 at 07:30 Ibuprofen (Motrin) 400 mg Q6H PRN PO MILD PAIN(1-3) OR TEMP>38C Last administered on 09/17/18at 21:04; Admin Dose 400 MG; Start 09/12/18 at 11:00 Tramadol HCl (Ultram) 50 mg Q6H PRN PO MODERATE PAIN LEVEL 4-6; Start 09/12/18 at 11:00 Miscellaneous Information 240 mg BID PO ; Start 09/12/18 at 17:30; Status UNV Levofloxacin/ Dextrose 150 ml @ 100 mls/hr Q24H IVPB Last administered on 09/17/18 18:13; Admin Dose 100 MLS/HR; Start 09/13/18 at 17:00; Stop 09/19/18 at 05:00 Miscellaneous Information (*Order Clarification Bulletin) MEDICATION REQUIRES CLARIFICATION:TE... Q8H XX Last administered on 09/18/18 04:30; Admin Dose 1 EA; Start 09/14/18 at 12:30 Docusate Sodium (Colace) 250 mg HS PO Last administered on 09/17/18 21:04; Admin Dose 250 MG; Start 09/14/18 at 21:00 Medroxyprogesterone Acetate (Provera) 10 mg DAILY PO Last administered on 09/18/18 08:20; Admin Dose 10 MG; Start 09/15/18 at 13:00; Stop 09/20/18 at 12:59 Ascorbic Acid (Vitamin C) 500 mg QHS PO Last administered on 09/17/18 21:04; Admin Dose 500 MG; Start 09/15/18 at 21:00 Ferrous Sulfate (Ferrous Sulfate (Ec)) 325 mg QHS PO Last administered on 09/17/18 21:04; Admin Dose 325 MG; Start 09/15/18 at 21:00 Ethinyl Estradiol/ Norethindrone (Nortrel 0.5-35-28 Tablet) 1 each QHS PO Last administered on 09/17/18 21:04; Admin Dose 1 EACH; Start 09/15/18 at 21:00 Meropenem/Sodium Chloride 50 ml @ 100 mls/hr Q8 IVPB Last administered on 09/18/18 06:16; Admin Dose 100 MLS/HR; Start 09/16/18 at 14:00 Metoclopramide HCl (Reglan) 10 mg Q6 IV Last administered on 09/18/18 06:16; Admin Dose 10 MG; Start 09/17/18 at 00:00 Assessment/Plan Hospital Course (Demo Recall) Assessment 1. History of menorrhagia and iron deficiency anemia 2. History of thromboembolic disease on anticoagulation 3. Progressive right effusion on chest x-ray today. Plan 1. Continue antibiotics, agree with ID recs. 2. Iron replacement 3. Encourage out of bed 4. s/p Thoracentesis right pleural fluid, transudative, await cytology. 5. may need repeat thoracentesis or pleurex if fluid reaccumulates. CECELIA BALL MD, [facility] Sep 18, 2018 11:35
--- NOTE | 2018-09-18 14:19 | PN ---
Date/Time of Note Date/Time of Note DATE: 09/18/18 TIME: 14:04 Assessment/Plan VTE Prophylaxis Risk score (from Ns)>0 risk: 6 SCD applied (from Ns): Yes Pharmacological prophylaxis: heparin Lines/Catheters IV Catheter Type (from Rust): Mid Line Urinary Cath still in place: No Assessment/Plan Assessment/Plan 1. Right middle lobe pneumonia, on meropenem and levaquin, follow up with ID, Dr. Godoy's note reviewed 2. Right pleural effusion, s/p thoracentesis with removal of 900 cc fluid, follow up with culture and cytology 3. Anemia due to iron deficiency, on iron supplement 4. Abnormal vaginal bleeding, stopped 5. Uterine fibroid, follow up with [employer] [facility] 6. History of deep vein thrombosis.. 7. Multiple sclerosis with functional quadriplegia, chronic, supportive care 8. DVT prophylaxis: heparin Result Diagram: 09/18/18 0543 09/18/18 0543 Results 24hrs Laboratory Tests Test 09/17/18 17:15 09/18/18 05:43 Body Fluid Type FLUID Body Fluid Volume 825.0 Body Fluid Color OLIVIER Body Fluid Appearance SLIGHTLY HAZY Body Fluid WBC 134 Body Fluid RBC (Auto) 5000 Body Fluid Polynuclear WBCs (%) 44.8 Body Fluid Mononuclear Cells % Auto 55.2 Body Fluid Glucose 174 Body Fluid Total Protein 2.4 Body Fluid Lactate Dehydrogenase 353 White Blood Count 14.4 H Red Blood Count 3.75 L Hemoglobin 8.7 L Hematocrit 29.7 L Mean Corpuscular Volume 79.2 L Mean Corpuscular Hemoglobin 23.2 L Mean Corpuscular Hemoglobin Concent 29.3 L Red Cell Distribution Width 25.1 H Platelet Count 609 H Mean Platelet Volume 10.2 Immature Granulocytes % 1.700 H Neutrophils % 83.2 H Lymphocytes % 8.1 L Monocytes % 4.9 Eosinophils % 1.7 Basophils % 0.4 Nucleated Red Blood Cells % 0.1 H Immature Granulocytes # 0.250 H Neutrophils # 11.9 H Lymphocytes # 1.2 Monocytes # 0.7 Eosinophils # 0.3 Basophils # 0.1 Nucleated Red Blood Cells # 0.0 Sodium Level 138 Potassium Level 3.8 Chloride Level 105 Carbon Dioxide Level 27 Anion Gap 6 Blood Urea Nitrogen 13 Creatinine 1.16 H Est Glomerular Filtrat Rate mL/min 49 L Glucose Level 123 Calcium Level 8.1 L Subjective 24 Hr Interval Summary Free Text/Dictation less shortness of breath Exam/Review of Systems Exam Vitals Vital Signs Date Temp Pulse Resp B/P (MAP) Pulse Ox O2 O2 Flow FiO2 Time Delivery Rate 09/18/18 99.6 89 20 133/67 98 Room Air 12:08 (89) 09/18/18 2.0 09:20 Intake and Output 09/17/18 09/17/18 09/18/18 1515:00 23:00 07:00 IntakeIntake Total 2050 ml 1400 ml OutputOutput Total 900 ml BalanceBalance 1150 ml 1400 ml Constitutional: alert, oriented, well developed Head: normocephalic, atraumatic Eyes: nl conjunctiva, EOMI, nl lids, PERRL ENMT: nl external ears & nose, nl lips & teeth, nl nasal mucosa & septum Neck: supple, non-tender Respiratory: clear to auscultation, diminished breath sounds (on right side) Cardiovascular: regular rate and rhythm, nl pulses; No bruits, No diastolic murmur, No edema, No gallop, No irregular rhythm, No jugular venous distention (JVD), No murmurs/extra sounds, No rub, No systolic murmur, No S3, No S4, No other Gastrointestinal: soft, nl liver, spleen, non-tender Musculoskeletal: nl extremities to inspection Extremities: normal pulses; No calf tenderness, No cyanosis, No clubbing, No edema, No pitting pedal edema, No palpable cord, No tenderness, No other Neurological: STRA[employer] G[employer]S II-XII intact, nl mental status, nl speech Results Results 24hrs Laboratory Tests Test 09/17/18 17:15 09/18/18 05:43 Body Fluid Type FLUID Body Fluid Volume 825.0 Body Fluid Color OLIVIER Body Fluid Appearance SLIGHTLY HAZY Body Fluid WBC 134 Body Fluid RBC (Auto) 5000 Body Fluid Polynuclear WBCs (%) 44.8 Body Fluid Mononuclear Cells % Auto 55.2 Body Fluid Glucose 174 Body Fluid Total Protein 2.4 Body Fluid Lactate Dehydrogenase 353 White Blood Count 14.4 H Red Blood Count 3.75 L Hemoglobin 8.7 L Hematocrit 29.7 L Mean Corpuscular Volume 79.2 L Mean Corpuscular Hemoglobin 23.2 L Mean Corpuscular Hemoglobin Concent 29.3 L Red Cell Distribution Width 25.1 H Platelet Count 609 H Mean Platelet Volume 10.2 Immature Granulocytes % 1.700 H Neutrophils % 83.2 H Lymphocytes % 8.1 L Monocytes % 4.9 Eosinophils % 1.7 Basophils % 0.4 Nucleated Red Blood Cells % 0.1 H Immature Granulocytes # 0.250 H Neutrophils # 11.9 H Lymphocytes # 1.2 Monocytes # 0.7 Eosinophils # 0.3 Basophils # 0.1 Nucleated Red Blood Cells # 0.0 Sodium Level 138 Potassium Level 3.8 Chloride Level 105 Carbon Dioxide Level 27 Anion Gap 6 Blood Urea Nitrogen 13 Creatinine 1.16 H Est Glomerular Filtrat Rate mL/min 49 L Glucose Level 123 Calcium Level 8.1 L Medications Medication Current Medications IV Flush (NS 3 ml) 3 ml PER PROTOCOL IV ; Start 09/12/18 at 07:00 Ondansetron HCl (Zofran Inj) 4 mg Q6H PRN IV NAUSEA/VOMITING Last administered on 09/16/18at 19:01; Admin Dose 4 MG; Start 09/12/18 at 07:00 Acetaminophen (Tylenol Tab) 650 mg Q6H PRN PO .PAIN 1-3 OR TEMP; Start 09/12/18 at 07:00 Acetaminophen/ Hydrocodone Bitart ([place] (5/325)) 1 tab Q6H PRN PO .PAIN 4-6; Start 09/12/18 at 07:00 Albuterol/ Ipratropium (Duoneb) 3 ml Q2H RESP THERAPY PRN HHN SHORTNESS OF CANDIDA ATH; Start 09/12/18 at 07:00 Clonazepam (Klonopin) 1 mg BID PRN PO ANXIETY; Start 09/12/18 at 07:00 Pantoprazole (Protonix Tab) 40 mg AC BREAKFAST PO Last administered on 09/18/18at 06:16; Admin Dose 40 MG; Start 09/12/18 at 07:00 Sodium Chloride 1,000 ml @ 100 mls/hr Q10H IV Last administered on 09/18/18at 08:21; Admin Dose 100 MLS/HR; Start 09/12/18 at 07:30 Ibuprofen (Motrin) 400 mg Q6H PRN PO MILD PAIN(1-3) OR TEMP>38C Last administered on 09/17/18at 21:04; Admin Dose 400 MG; Start 09/12/18 at 11:00 Tramadol HCl (Ultram) 50 mg Q6H PRN PO MODERATE PAIN LEVEL 4-6; Start 09/12/18 at 11:00 Miscellaneous Information 240 mg BID PO ; Start 09/12/18 at 17:30; Status UNV Levofloxacin/ Dextrose 150 ml @ 100 mls/hr Q24H IVPB Last administered on 09/17/18 18:13; Admin Dose 100 MLS/HR; Start 09/13/18 at 17:00; Stop 09/19/18 at 05:00 Miscellaneous Information (*Order Clarification Bulletin) MEDICATION REQUIRES CLARIFICATION:TE... Q8H XX Last administered on 09/18/18 04:30; Admin Dose 1 EA ; Start 09/14/18 at 12:30 Docusate Sodium (Colace) 250 mg HS PO Last administered on 09/17/18 21:04; Admin Dose 250 MG; Start 09/14/18 at 21:00 Medroxyprogesterone Acetate (Provera) 10 mg DAILY PO Last administered on 09/18/18 08:20; Admin Dose 10 MG; Start 09/15/18 at 13:00; Stop 09/20/18 at 12:59 Ascorbic Acid (Vitamin C) 500 mg QHS PO Last administered on 09/17/18 21:04; Admin Dose 500 MG; Start 09/15/18 at 21:00 Ferrous Sulfate (Ferrous Sulfate (Ec)) 325 mg QHS PO Last administered on 09/17 21:04; Admin Dose 325 MG; Start 09/15/18 at 21:00 Ethinyl Estradiol/ Norethindrone (Nortrel 0.5-35-28 Tablet) 1 each QHS PO Last administered on 09/17/18 21:04; Admin Dose 1 EACH; Start 09/15/18 at 21:00 Meropenem/Sodium Chloride 50 ml @ 100 mls/hr Q8 IVPB Last administered on 09/18/18 13:46; Admin Dose 100 MLS/HR; Start 09/16/18 at 14:00 Metoclopramide HCl (Reglan) 10 mg Q6 IV Last administered on 09/18/18 11:59; Admin Dose 10 MG; Start 09/17/18 at 00:00 FREDI OCASIO MD Sep 18, 2018 14:14
--- NOTE | 2018-09-18 14:20 | PN ---
DATE: 09/18/2018 SUBJECTIVE: The patient states that she is no longer having epigastric pain that she complained of 2 or 3 days ago. She also states there has been no further nausea or vomiting. The patient has not h ad any adverse reaction to the metoclopramide, which has been given on a regular schedule. OBJECTIVE: GENERAL: The patient is well-developed, well-nourished female in no acute distress. VITAL SIGNS: Temperature 99 orally, pulse 89 per minute and regular, respirations 20, blood pressure 133/67, pulse oximetry 98% on room air. SKIN: Pale, but no ecchymosis, no petechiae or rashes. HEENT: Normocephalic. No evidence of trauma. Pupils are equal, round, react to light and accommoda tion. Sclerae are nonicteric. Oral mucosa is moist without lesions. Conjunctivae and oral mucosa a re pale. NECK: Supple. No jugular venous distention or thyroid enlargement. CHEST: Clear to auscultation and percussion. No rhonchi, wheezes, rales or rubs. There are no brown ges on the right side. HEART: Regular sinus rhythm. No S3, S4 or murmurs. No rubs. ABDOMEN: Mildly obese, but soft. No masses or ascites. Bowel sounds are active. There is no pain on palpation of the epigastrium. No rebound tenderness. EXTREMITIES: No clubbing. No edema or cyanosis. No palpable cords or Homans sign. NEUROLOGIC: Normal. DIAGNOSTIC STUDIES: The patient has undergone thoracentesis with 900 mL of serous fluid being remove d from the right hemithorax. Fluid was described as being serous in color. Findings and analysis of the fluid reveal a total protein of 2.4. LDH was 353, glucose 174. There were 5000 red blood cells present and 134 white blood cells, 44.8% were polys and 55% were mono nuclear cells. X-rays repeated after thoracentesis did not show any evidence of pneumothorax. There has been no bernice ccumulation of fluid on today's x-ray. ASSESSMENT: 1. Iron deficiency anemia. 2. Multiple sclerosis. 3. History of deep vein thrombosis, on anticoagulation. 4. Right middle lobe infiltration versus mass. As noted, the patient has received 625 mg of elemental iron. Hemoglobin is stable. The etiology of the patient's right-sided pneumonic process and pleural effusion are at this time unc lear. This is a transudative process and not consistent with malignancy or with infection. If the patient's right-sided infiltrate does not clear, further investigation with bronchoscopy may b e required. The patient, as mentioned, does have iron deficiency. I feel this is related to the patient's menstr ual blood loss in association with fibroid tumors and I have recommended that the patient undergo hys terectomy. Dictated By: DONAVON ANGULO MD SR/NTS Conf#: [id number] DID#: [id number] CC: CLEO FARRIS MD; FREDI OCASIO MD; HANNAH HAWKINS MD;*EndCC*
[2018-09-18] MEDS: LEVOFLOXACIN 750MG/D5W (PMX) 150 ML IVPB SCH (17:20)
[2018-09-18] MEDS: FERROUS SULFATE (EC) 325 MG TAB PO SCH (20:50)
[2018-09-18] MEDS: ASCORBIC ACID 500 MG TAB PO SCH (20:50)
[2018-09-18] MEDS: DOCUSATE SODIUM 250 MG CAP PO SCH (21:00)
[2018-09-18] MEDS: HEPARIN 5,000 UNIT/1 ML VIAL SC SCH (21:06)
[2018-09-18] MEDS: NORETHINDRONE-ETHINYL ESTR 0.5-35 TAB PO SCH (22:32)
[2018-09-19] VITALS (12 sets, daily range): BP systolic 117–146; BP diastolic 58–67; PULSE 78–102; RESP 17–19
[2018-09-19] MEDS: METOCLOPRAMIDE 10 MG INJ IV SCH ×4 (00:15→17:22)
[2018-09-19] MEDS: [UNRECOGNIZED DRUG - REMARK] XX SCH ×3 (04:30→20:30)
[2018-09-19] MEDS: MEROPENEM 1 GM/50ML(PMX) 50 ML IVPB SCH (06:06)
[2018-09-19] MEDS: PANTOPRAZOLE (EC) 40 MG TAB PO SCH (06:06)
--- NOTE | 2018-09-19 06:41 | CONS ---
Assessment/Plan Assessment/Plan Hospital Course (Demo Recall) 1)RML pneumonia with possible abscess the area of question for abscess is small and likely antibiotics alone will be sufficient CT chest did not suggest PE the development of possible abscess suggests aspiration respiratory cx was ordered but have asked nurse to place sputum container by her bedside and encourage daughter to collect I will also order nasal for MRSA continue with vanco/zosyn/levo at present 09/14 - sputum cx is pending but according to patient it was collected improved symptoms and WBC continue with vanco/zosyn/levaquin at present but will re-evaluate when more micro lab results are in 09/15 - sputum cx and nasal cx are neg, no further fevers and wbc is a bit improved today d/c vanco, continue with zosyn/levo at present 09/16 - WBC count is stalled but clinically she is better pt has N and vomited yesterday, not sure if it is the iron infusion or possibly the zosyn d/c zosyn and start merrem and continue thru 09/19 continue levaquin thru 09/18 if WBC not improving will need to re-image area of possible lung abscess 09/17 - improved nausea, on merrem/levaquin CXR unable to assess the potential abscess site well WBC is improved though consider chest CT w/o contrast 09/18 - R sided thorancentesis done yesterday and pt feels better pleural fluid is not infected and looks to be transudative (serum LDH was not done though) WBC remains mildly elevated and if not improved tomorrow will order chest CT last day for levaquin and if WBC is improved tomorrow will likely switch merrem to augmentin 09/19 - improved WBC, d/c merrem and start augmentin and continue for 7 days if pt continues to improve then get repeat CT chest in 2-3 months 2)MS 3) hx of DVT 4) Fe deficiency anemia now on IV iron 09/14 - pt pelvic u/s showed fibroids but pt denies vaginal bleeding except during her menstrual cycle for 3-4 days 09/15- decrease in Hgb is noted 09/16 - improvement in Hgb this a.m. pt has N and occasionally vomiting, may be related to the iron 09/17 - stable Hgb Consultation Date/Type/Reason Admit Date/Time Sep 12, 2018 at 06:02 Initial Consult Date 09/13/18 Type of Consult ID Requesting Provider: CLEO FARRIS MD Date/Time of Note DATE: 09/19/18 TIME: 06:38 24 HR Interval Summary Free Text/Dictation pain to R chest is better she states that she feels ok no V, D minimal cough Exam/Review of Systems Exam Vitals Vital Signs Date Temp Pulse Resp B/P (MAP) Pulse Ox O2 O2 Flow FiO2 Time Delivery Rate 09/19/18 98.4 83 17 117/58 98 05:51 (77) 09/18/18 Room Air 15:19 09/18/18 2.0 09:20 Intake and Output 09/18/18 09/18/18 09/19/18 1515:00 23:00 07:00 IntakeIntake Total 2240 ml BalanceBalance 2240 ml Constitutional: alert Respiratory: clear to auscultation Cardiovascular: regular rate and rhythm Gastrointestinal: soft, non-tender Results Result Diagram: 09/19/18 0520 09/19/18 0520 Results 24hrs Laboratory Tests Test 09/19/18 05:20 White Blood Count 12.3 H Red Blood Count 3.86 L Hemoglobin 8.9 L Hematocrit 30.3 L Mean Corpuscular Volume 78.5 L Mean Corpuscular Hemoglobin 23.1 L Mean Corpuscular Hemoglobin Concent 29.4 L Red Cell Distribution Width 26.7 H Platelet Count 627 H Mean Platelet Volume 9.9 Immature Granulocytes % 1.900 H Neutrophils % 79.2 H Lymphocytes % 11.2 L Monocytes % 5.3 Eosinophils % 1.9 Basophils % 0.5 Nucleated Red Blood Cells % 0.0 Immature Granulocytes # 0.230 H Neutrophils # 9.8 H Lymphocytes # 1.4 Monocytes # 0.7 Eosinophils # 0.2 Basophils # 0.1 Nucleated Red Blood Cells # 0.0 Sodium Level 137 Potassium Level 3.9 Chloride Level 103 Carbon Dioxide Level 27 Anion Gap 7 Blood Urea Nitrogen 16 Creatinine 1.02 H Est Glomerular Filtrat Rate mL/min 57 L Glucose Level 129 Calcium Level 8.6 Medications Medication Current Medications IV Flush (NS 3 ml) 3 ml PER PROTOCOL IV ; Start 09/12/18 at 07:00 Ondansetron HCl (Zofran Inj) 4 mg Q6H PRN IV NAUSEA/VOMITING Last administered on 09/16/18at 19:01; Admin Dose 4 MG; Start 09/12/18 at 07:00 Acetaminophen (Tylenol Tab) 650 mg Q6H PRN PO .PAIN 1-3 OR TEMP; Start 09/12/18 at 07:00 Acetaminophen/ Hydrocodone Bitart ([place] (5/325)) 1 tab Q6H PRN PO .PAIN 4-6; Start 09/12/18 at 07:00 Albuterol/ Ipratropium (Duoneb) 3 ml Q2H RESP THERAPY PRN HHN SHORTNESS OF BREATH; Start 09/12/18 at 07:00 Clonazepam (Klonopin) 1 mg BID PRN PO ANXIETY; Start 09/12/18 at 07:00 Pantoprazole (Protonix Tab) 40 mg AC BREAKFAST PO Last administered on 09/19 06:06; Admin Dose 40 MG; Start 09/12/18 at 07:00 Sodium Chloride 1,000 ml @ 100 mls/hr Q10H IV Last administered on 09/18/18 21:07; Admin Dose 100 MLS/HR; Start 09/12/18 at 07:30 Ibuprofen (Motrin) 400 mg Q6H PRN PO MILD PAIN(1-3) OR TEMP>38C Last administered on 09/17/18 21:04; Admin Dose 400 MG; Start 09/12/18 at 11:00 Tramadol HCl (Ultram) 50 mg Q6H PRN PO MODERATE PAIN LEVEL 4-6; Start 09/12/18 at 11:00 Miscellaneous Information 240 mg BID PO ; Start 09/12/18 at 17:30; Status UNV Miscellaneous Information (*Order Clarification Bulletin) MEDICATION REQUIRES CLARIFICATION:TE... Q8H XX Last administered on 09/18/18 04:30; Admin Dose 1 EA; Start 09/14/18 at 12:30 Docusate Sodium (Colace) 250 mg HS PO Last administered on 09/17/18 21:04; Admin Dose 250 MG; Start 09/14/18 at 21:00 Medroxyprogesterone Acetate (Provera) 10 mg DAILY PO Last administered on 09/18/18 08:20; Admin Dose 10 MG; Start 09/15/18 at 13:00; Stop 09/20/18 at 12:59 Ascorbic Acid (Vitamin C) 500 mg QHS PO Last administered on 09/18/18 20:50; Admin Dose 500 MG; Start 09/15/18 at 21:00 Ferrous Sulfate (Ferrous Sulfate (Ec)) 325 mg QHS PO Last administered on 09/18/18 20:50; Admin Dose 325 MG; Start 09/15/18 at 21:00 Ethinyl Estradiol/ Norethindrone (Nortrel 0.5-35-28 Tablet) 1 each QHS PO Last administered on 09/18/18 22:32; Admin Dose 1 EACH; Start 09/15/18 at 21:00 Meropenem/Sodium Chloride 50 ml @ 100 mls/hr Q8 IVPB Last administered on 09/19/18 06:06; Admin Dose 100 MLS/HR; Start 09/16/18 at 14:00 Metoclopramide HCl (Reglan) 10 mg Q6 IV Last administered on 09/19/18 06:06; Admin Dose 10 MG; Start 09/17/18 at 00:00 Heparin Sodium (Porcine) (Heparin (5000 Units/1ml)) 5,000 unit BID SC Last administered on 09/18/18 21:06; Admin Dose 5,000 UNIT; Start 09/18/18 at 21:00 RUPA RASHEED MD Sep 19, 2018 06:41
[2018-09-19] MEDS: MEDROXYPROGESTERONE 10 MG TAB PO SCH (08:37)
[2018-09-19] MEDS: SOD CHLORIDE 0.9% 1,000 ML IV SCH ×2 (08:37→18:25)
[2018-09-19] MEDS: AMOXICILLIN/CLAV 875 MG TAB PO SCH ×2 (08:37→20:55)
[2018-09-19] MEDS: HEPARIN 5,000 UNIT/1 ML VIAL SC SCH ×2 (08:45→21:04)
--- NOTE | 2018-09-19 10:51 | CONS ---
Consult Date/Type/Reason Admit Date/Time Sep 12, 2018 at 06:02 Initial Consult Date 09/13/18 Type of Consult Pulmonary Requesting Provider: CLEO FARRIS MD Date/Time of Note DATE: 09/19/18 TIME: 10:48 Subjective Remains stable this morning. Objective Vital Signs Date Temp Pulse Resp B/P (MAP) Pulse Ox O2 O2 Flow FiO2 Time Delivery Rate 09/19/18 81 08:13 09/19/18 97.9 19 135/63 95 07:42 (87) 09/18/18 Room Air 15:19 09/18/18 2.0 09:20 Intake and Output 09/18/18 09/18/18 09/19/18 1515:00 23:00 07:00 IntakeIntake Total 2240 ml 1520 ml OutputOutput Total 600 ml BalanceBalance 2240 ml 920 ml Exam GENERAL: VITAL SIGNS: per chart well-nourished well-developed lady comfortable at rest no acute distress NECK: Supple. No JVD or lymphadenopathy. CARDIAC EXAM: S1, S2. No added sounds or murmurs. CHEST: clear bilaterally, No added sounds, rales or wheezes ABDOMEN: Soft, nontender. No guarding or rebound. EXTREMITIES: No cyanosis, clubbing or edema. NEUROLOGIC: Generalized weakness. No focal deficits. Results/Medications Result Diagram: 09/19/18 0520 09/19/18 0520 Results 24 hrs Laboratory Tests Test 09/19/18 05:20 White Blood Count 12.3 H Red Blood Count 3.86 L Hemoglobin 8.9 L Hematocrit 30.3 L Mean Corpuscular Volume 78.5 L Mean Corpuscular Hemoglobin 23.1 L Mean Corpuscular Hemoglobin Concent 29.4 L Red Cell Distribution Width 26.7 H Platelet Count 627 H Mean Platelet Volume 9.9 Immature Granulocytes % 1.900 H Neutrophils % 79.2 H Lymphocytes % 11.2 L Monocytes % 5.3 Eosinophils % 1.9 Basophils % 0.5 Nucleated Red Blood Cells % 0.0 Immature Granulocytes # 0.230 H Neutrophils # 9.8 H Lymphocytes # 1.4 Monocytes # 0.7 Eosinophils # 0.2 Basophils # 0.1 Nucleated Red Blood Cells # 0.0 Sodium Level 137 Potassium Level 3.9 Chloride Level 103 Carbon Dioxide Level 27 Anion Gap 7 Blood Urea Nitrogen 16 Creatinine 1.02 H Est Glomerular Filtrat Rate mL/min 57 L Glucose Level 129 Calcium Level 8.6 Medications Current Medications IV Flush (NS 3 ml) 3 ml PER PROTOCOL IV ; Start 09/12/18 at 07:00 Ondansetron HCl (Zofran Inj) 4 mg Q6H PRN IV NAUSEA/VOMITING Last administered on 09/16/18 19:01; Admin Dose 4 MG; Start 09/12/18 at 07:00 Acetaminophen (Tylenol Tab) 650 mg Q6H PRN PO .PAIN 1-3 OR TEMP; Start 09/12/18 at 07:00 Acetaminophen/ Hydrocodone Bitart ([place] (5/325)) 1 tab Q6H PRN PO .PAIN 4-6; Start 09/12/18 at 07:00 Albuterol/ Ipratropium (Duoneb) 3 ml Q2H RESP THERAPY PRN HHN SHORTNESS OF BREATH; Start 09/12/18 at 07:00 Clonazepam (Klonopin) 1 mg BID PRN PO ANXIETY; Start 09/12/18 at 07:00 Pantoprazole (Protonix Tab) 40 mg AC BREAKFAST PO Last administered on 09/19/18 06:06; Admin Dose 40 MG; Start 09/12/18 at 07:00 Sodium Chloride 1,000 ml @ 100 mls/hr Q10H IV Last administered on 09/19/18 08:37; Admin Dose 100 MLS/HR; Start 09/12/18 at 07:30 Ibuprofen (Motrin) 400 mg Q6H PRN PO MILD PAIN(1-3) OR TEMP>38C Last administered on 09/17/18 21:04; Admin Dose 400 MG; Start 09/12/18 at 11:00 Tramadol HCl (Ultram) 50 mg Q6H PRN PO MODERATE PAIN LEVEL 4-6; Start 09/12/18 at 11:00 Miscellaneous Information 240 mg BID PO ; Start 09/12/18 at 17:30; Status UNV Miscellaneous Information (*Order Clarification Bulletin) MEDICATION REQUIRES CLARIFICATION:TE... Q8H XX Last administered on 09/18/18 04:30; Admin Dose 1 EA; Start 09/14/18 at 12:30 Docusate Sodium (Colace) 250 mg HS PO Last administered on 09/17/18 21:04; Admin Dose 250 MG; Start 09/14/18 at 21:00 Medroxyprogesterone Acetate (Provera) 10 mg DAILY PO Last administered on 09/19/18 08:37; Admin Dose 10 MG; Start 09/15/18 at 13:00; Stop 09/20/18 at 12:59 Ascorbic Acid (Vitamin C) 500 mg QHS PO Last administered on 09/18/18 20:50; Admin Dose 500 MG; Start 09/15/18 at 21:00 Ferrous Sulfate (Ferrous Sulfate (Ec)) 325 mg QHS PO Last administered on 09/18/18 20:50; Admin Dose 325 MG; Start 09/15/18 at 21:00 Ethinyl Estradiol/ Norethindrone (Nortrel 0.5-35-28 Tablet) 1 each QHS PO Last administered on 09/18/18 22:32; Admin Dose 1 EACH; Start 09/15/18 at 21:00 Metoclopramide HCl (Reglan) 10 mg Q6 IV Last administered on 09/19/18 06:06; Admin Dose 10 MG; Start 09/17/18 at 00:00 Heparin Sodium (Porcine) (Heparin (5000 Units/1ml)) 5,000 unit BID SC Last administered on 09/19/18 08:45; Admin Dose 5,000 UNIT; Start 09/18/18 at 21:00 Amoxicillin/ Clavulanate Potassium (Augmentin) 875 mg BID PO Last administered on 09/19/18 08:37; Admin Dose 875 MG; Start 09/19/18 at 09:00 Assessment/Plan Hospital Course (Demo Recall) Assessment 1. History of menorrhagia and iron deficiency anemia 2. History of thromboembolic disease on anticoagulation 3. Progressive right effusion on chest x-ray today. 4. Iron deficiency anemia 5. Hx MS. Plan 1. Continue antibiotics, agree with ID recs. 2. Iron replacement 3. Encourage out of bed 4. s/p Thoracentesis negative for malignancy 5. may need repeat thoracentesis or pleurex if fluid reaccumulates. Repeat cxr today. CECELIA BALL MD, [facility] Sep 19, 2018 10:51
--- NOTE | 2018-09-19 11:59 | PN ---
Date/Time of Note Date/Time of Note DATE: 09/19/18 TIME: 11:53 Assessment/Plan VTE Prophylaxis Risk score (from Ns)>0 risk: 2 SCD applied (from Ns): Yes Pharmacological prophylaxis: heparin Lines/Catheters IV Catheter Type (from Nrs): Mid Line Urinary Cath still in place: No Assessment/Plan Assessment/Plan Hgb is slowly rising and the MCV is slightly higher. Dr. Godoy is converting to oral antibiotics. I discussed with and patient that even after she leaves the hospital, she will need f/u of the chest and of the anemia. She is likely to need a hysterectomy, as suggested last since iron replacement will not stop the vaginal bleeding. She has received IV iron but that will only temporize if the blood loss continues. Result Diagram: 09/19/1851909/19/1820 Results 24hrs Laboratory Tests Test 09/19/18 05:20 White Blood Count 12.3 H Red Blood Count 3.86 L Hemoglobin 8.9 L Hematocrit 30.3 L Mean Corpuscular Volume 78.5 L Mean Corpuscular Hemoglobin 23.1 L Mean Corpuscular Hemoglobin Concent 29.4 L Red Cell Distribution Width 26.7 H Platelet Count 627 H Mean Platelet Volume 9.9 Immature Granulocytes % 1.900 H Neutrophils % 79.2 H Lymphocytes % 11.2 L Monocytes % 5.3 Eosinophils % 1.9 Basophils % 0.5 Nucleated Red Blood Cells % 0.0 Immature Granulocytes # 0.230 H Neutrophils # 9.8 H Lymphocytes # 1.4 Monocytes # 0.7 Eosinophils # 0.2 Basophils # 0.1 Nucleated Red Blood Cells # 0.0 Sodium Level 137 Potassium Level 3.9 Chloride Level 103 Carbon Dioxide Level 27 Anion Gap 7 Blood Urea Nitrogen 16 Creatinine 1.02 H Est Glomerular Filtrat Rate mL/min 57 L Glucose Level 129 Calcium Level 8.6 Subjective 24 Hr Interval Summary Free Text/Dictation Pt is stable and afebrile. Pt and are anxious to go home. Exam/Review of Systems Exam Vitals Vital Signs Date Temp Pulse Resp B/P (MAP) Pulse Ox O2 O2 Flow FiO2 Time Delivery Rate 09/19/18 81 08:13 09/19/18 97.9 19 135/63 95 07:42 (87) 09/18/18 Room Air 15:19 09/18/18 2.0 09:20 Intake and Output 09/18/18 09/18/18 09/19/18 1515:00 23:00 07:00 IntakeIntake Total 2240 ml 1520 ml OutputOutput Total 600 ml BalanceBalance 2240 ml 920 ml Constitutional: alert, oriented Head: normocephalic Eyes: other (conjunctival pallor) Neck: supple Respiratory: diminished breath sounds Cardiovascular: regular rate and rhythm, nl pulses Gastrointestinal: soft, nl liver, spleen, non-tender Results Results 24hrs Laboratory Tests Test 09/19/18 05:20 White Blood Count 12.3 H Red Blood Count 3.86 L Hemoglobin 8.9 L Hematocrit 30.3 L Mean Corpuscular Volume 78.5 L Mean Corpuscular Hemoglobin 23.1 L Mean Corpuscular Hemoglobin Concent 29.4 L Red Cell Distribution Width 26.7 H Platelet Count 627 H Mean Platelet Volume 9.9 Immature Granulocytes % 1.900 H Neutrophils % 79.2 H Lymphocytes % 11.2 L Monocytes % 5.3 Eosinophils % 1.9 Basophils % 0.5 Nucleated Red Blood Cells % 0.0 Immature Granulocytes # 0.230 H Neutrophils # 9.8 H Lymphocytes # 1.4 Monocytes # 0.7 Eosinophils # 0.2 Basophils # 0.1 Nucleated Red Blood Cells # 0.0 Sodium Level 137 Potassium Level 3.9 Chloride Level 103 Carbon Dioxide Level 27 Anion Gap 7 Blood Urea Nitrogen 16 Creatinine 1.02 H Est Glomerular Filtrat Rate mL/min 57 L Glucose Level 129 Calcium Level 8.6 Medications Medication Current Medications IV Flush (NS 3 ml) 3 ml PER PROTOCOL IV ; Start 09/12/18 at 07:00 Ondansetron HCl (Zofran Inj) 4 mg Q6H PRN IV NAUSEA/VOMITING Last administered on 09/16/18at 19:01; Admin Dose 4 MG; Start 09/12/18 at 07:00 Acetaminophen (Tylenol Tab) 650 mg Q6H PRN PO .PAIN 1-3 OR TEMP; Start 09/12/18 at 07:00 Acetaminophen/ Hydrocodone Bitart ([place] (5/325)) 1 tab Q6H PRN PO .PAIN 4-6; Start 09/12/18 at 07:00 Albuterol/ Ipratropium (Duoneb) 3 ml Q2H RESP THERAPY PRN HHN SHORTNESS OF BREATH; Start 09/12/18 at 07:00 Clonazepam (Klonopin) 1 mg BID PRN PO ANXIETY; Start 09/12/18 at 07:00 Pantoprazole (Protonix Tab) 40 mg AC BREAKFAST PO Last administered on 09/19/18 06:06; Admin Dose 40 MG; Start 09/12/18 at 07:00 Sodium Chloride 1,000 ml @ 100 mls/hr Q10H IV Last administered on 09/19/18 08:37; Admin Dose 100 MLS/HR; Start 09/12/18 at 07:30 Ibuprofen (Motrin) 400 mg Q6H PRN PO MILD PAIN(1-3) OR TEMP>38C Last administered on 09/17/18 21:04; Admin Dose 400 MG; Start 09/12/18 at 11:00 Tramadol HCl (Ultram) 50 mg Q6H PRN PO MODERATE PAIN LEVEL 4-6; Start 09/12/18 at 11:00 Miscellaneous Information 240 mg BID PO ; Start 09/12/18 at 17:30; Status UNV Miscellaneous Information (*Order Clarification Bulletin) MEDICATION REQUIRES CLARIFICATION:TE... Q8H XX Last administered on 09/18/18 04:30; Admin Dose 1 EA; Start 09/14/18 at 12:30 Docusate Sodium (Colace) 250 mg HS PO Last administered on 09/17/18 21:04; Admin Dose 250 MG; Start 09/14/18 at 21:00 Medroxyprogesterone Acetate (Provera) 10 mg DAILY PO Last administered on 09/19/18 08:37; Admin Dose 10 MG; Start 09/15/18 at 13:00; Stop 09/20/18 at 12:59 Ascorbic Acid (Vitamin C) 500 mg QHS PO Last administered on 09/18/18 20:50; Admin Dose 500 MG; Start 09/15/18 at 21:00 Ferrous Sulfate (Ferrous Sulfate (Ec)) 325 mg QHS PO Last administered on 09/18/18 20:50; Admin Dose 325 MG; Start 09/15/18 at 21:00 Ethinyl Estradiol/ Norethindrone (Nortrel 0.5-35-28 Tablet) 1 each QHS PO Last administered on 4/3/19at 22:32; Admin Dose 1 EACH; Start 09/15/18 at 21:00 Metoclopramide HCl (Reglan) 10 mg Q6 IV Last administered on 09/19/18 06:06; Admin Dose 10 MG; Start 09/17/18 at 00:00 Heparin Sodium (Porcine) (Heparin (5000 Units/1ml)) 5,000 unit BID SC Last administered on 09/19/18 08:45; Admin Dose 5,000 UNIT; Start 09/18/18 at 21:00 Amoxicillin/ Clavulanate Potassium (Augmentin) 875 mg BID PO Last administered on 09/19/18 08:37; Admin Dose 875 MG; Start 09/19/18 at 09:00 SANDRA GARLAND MD Sep 19, 2018 11:59
[2018-09-19] MEDS: BALSAM PERU/CASTOR OIL 60 GM TUBE TOP SCH ×2 (12:11→20:57)
--- NOTE | 2018-09-19 12:29 | PN ---
Date/Time of Note Date/Time of Note DATE: 09/19/18 TIME: 12:27 Assessment/Plan VTE Prophylaxis Risk score (from Ns)>0 risk: 2 SCD applied (from Ns): Yes Pharmacological prophylaxis: heparin Lines/Catheters IV Catheter Type (from Nrs): Mid Line Urinary Cath still in place: No Assessment/Plan Assessment/Plan 1. Right middle lobe pneumonia, changed antibiotics to augmentin today, follow up with EBC, home tomorrow if stable 2. Right pleural effusion, s/p thoracentesis with removal of 900 cc fluid, follow up with CXR 3. Anemia due to iron deficiency, on iron supplement 4. Abnormal vaginal bleeding, stopped 5. Uterine fibroid, follow up with [facility] 6. History of deep vein thrombosis.. 7. Multiple sclerosis with functional quadriplegia, chronic, supportive care 8. DVT prophylaxis: heparin 9. D/C plan for 09/20/2018 Result Diagram: 09/19/18 0520 09/19/18 0520 Results 24hrs Laboratory Tests Test 09/19/18 05:20 White Blood Count 12.3 H Red Blood Count 3.86 L Hemoglobin 8.9 L Hematocrit 30.3 L Mean Corpuscular Volume 78.5 L Mean Corpuscular Hemoglobin 23.1 L Mean Corpuscular Hemoglobin Concent 29.4 L Red Cell Distribution Width 26.7 H Platelet Count 627 H Mean Platelet Volume 9.9 Immature Granulocytes % 1.900 H Neutrophils % 79.2 H Lymphocytes % 11.2 L Monocytes % 5.3 Eosinophils % 1.9 Basophils % 0.5 Nucleated Red Blood Cells % 0.0 Immature Granulocytes # 0.230 H Neutrophils # 9.8 H Lymphocytes # 1.4 Monocytes # 0.7 Eosinophils # 0.2 Basophils # 0.1 Nucleated Red Blood Cells # 0.0 Sodium Level 137 Potassium Level 3.9 Chloride Level 103 Carbon Dioxide Level 27 Anion Gap 7 Blood Urea Nitrogen 16 Creatinine 1.02 H Est Glomerular Filtrat Rate mL/min 57 L Glucose Level 129 Calcium Level 8.6 Subjective 24 Hr Interval Summary Free Text/Dictation no fever, no shortness of breath Exam/Review of Systems Exam Vitals Vital Signs Date Temp Pulse Resp B/P (MAP) Pulse Ox O2 O2 Flow FiO2 Time Delivery Rate 09/19/18 98.4 80 19 132/65 95 12:04 (87) 09/18/18 Room Air 15:19 09/18/18 2.0 09:20 Intake and Output 09/18/18 09/18/18 09/19/18 1515:00 23:00 07:00 IntakeIntake Total 2240 ml 1520 ml OutputOutput Total 600 ml BalanceBalance 2240 ml 920 ml Constitutional: alert, oriented, well developed Head: normocephalic, atraumatic Eyes: nl conjunctiva, EOMI, nl lids, PERRL ENMT: nl external ears & nose, nl lips & teeth, nl nasal mucosa & septum Neck: supple, non-tender Respiratory: diminished breath sounds (on right) Cardiovascular: regular rate and rhythm, nl pulses; No bruits, No diastolic murmur, No edema, No gallop, No irregular rhythm, No jugular venous distention (JVD), No murmurs/extra sounds, No rub, No systolic murmur, No S3, No S4, No other Gastrointestinal: soft, nl liver, spleen, non-tender Musculoskeletal: nl extremities to inspection Neurological: [employer] II-XII intact, nl mental status, nl speech Results Results 24hrs Laboratory Tests Test 09/19/18 05:20 White Blood Count 12.3 H Red Blood Count 3.86 L Hemoglobin 8.9 L Hematocrit 30.3 L Mean Corpuscular Volume 78.5 L Mean Corpuscular Hemoglobin 23.1 L Mean Corpuscular Hemoglobin Concent 29.4 L Red Cell Distribution Width 26.7 H Platelet Count 627 H Mean Platelet Volume 9.9 Immature Granulocytes % 1.900 H Neutrophils % 79.2 H Lymphocytes % 11.2 L Monocytes % 5.3 Eosinophils % 1.9 Basophils % 0.5 Nucleated Red Blood Cells % 0.0 Immature Granulocytes # 0.230 H Neutrophils # 9.8 H Lymphocytes # 1.4 Monocytes # 0.7 Eosinophils # 0.2 Basophils # 0.1 Nucleated Red Blood Cells # 0.0 Sodium Level 137 Potassium Level 3.9 Chloride Level 103 Carbon Dioxide Level 27 Anion Gap 7 Blood Urea Nitrogen 16 Creatinine 1.02 H Est Glomerular Filtrat Rate mL/min 57 L Glucose Level 129 Calcium Level 8.6 Medications Medication Current Medications IV Flush (NS 3 ml) 3 ml PER PROTOCOL IV ; Start 09/12/18 at 07:00 Ondansetron HCl (Zofran Inj) 4 mg Q6H PRN IV NAUSEA/VOMITING Last administered on 09/16/18 19:01; Admin Dose 4 MG; Start 09/12/18 at 07:00 Acetaminophen (Tylenol Tab) 650 mg Q6H PRN PO .PAIN 1-3 OR TEMP; Start 09/12/18 at 07:00 Acetaminophen/ Hydrocodone Bitart ([place] (5/325)) 1 tab Q6H PRN PO .PAIN 4-6; Start 09/12/18 at 07:00 Albuterol/ Ipratropium (Duoneb) 3 ml Q2H RESP THERAPY PRN HHN SHORTNESS OF BREATH; Start 09/12/18 at 07:00 Clonazepam (Klonopin) 1 mg BID PRN PO ANXIETY; Start 09/12/18 at 07:00 Pantoprazole (Protonix Tab) 40 mg AC BREAKFAST PO Last administered on 09/19/18 06:06; Admin Dose 40 MG; Start 09/12/18 at 07:00 Sodium Chloride 1,000 ml @ 100 mls/hr Q10H IV Last administered on 09/19/18 08:37; Admin Dose 100 MLS/HR; Start 09/12/18 at 07:30 Ibuprofen (Motrin) 400 mg Q6H PRN PO MILD PAIN(1-3) OR TEMP>38C Last administered on 09/17/18 21:04; Admin Dose 400 MG; Start 09/12/18 at 11:00 Tramadol HCl (Ultram) 50 mg Q6H PRN PO MODERATE PAIN LEVEL 4-6; Start 09/12/18 at 11:00 Miscellaneous Information 240 mg BID PO ; Start 09/12/18 at 17:30; Status UNV Miscellaneous Information (*Order Clarification Bulletin) MEDICATION REQUIRES CLARIFICATION:TE... Q8H XX Last administered on 09/18/18 04:30; Admin Dose 1 EA; Start 09/14/18 at 12:30 Docusate Sodium (Colace) 250 mg HS PO Last administered on 09/17/18 21:04; Admin Dose 250 MG; Start 09/14/18 at 21:00 Medroxyprogesterone Acetate (Provera) 10 mg DAILY PO Last administered on 09/19/18 08:37; Admin Dose 10 MG; Start 09/15/18 at 13:00; Stop 09/20/18 at 12:59 Ascorbic Acid (Vitamin C) 500 mg QHS PO Last administered on 09/18/18 20:50; Admin Dose 500 MG; Start 09/15/18 at 21:00 Ferrous Sulfate (Ferrous Sulfate (Ec)) 325 mg QHS PO Last administered on 09/18/18 20:50; Admin Dose 325 MG; Start 09/15/18 at 21:00 Ethinyl Estradiol/ Norethindrone (Nortrel 0.5-35-28 Tablet) 1 each QHS PO Last administered on 09/18/18 22:32; Admin Dose 1 EACH; Start 09/15/18 at 21:00 Metoclopramide HCl (Reglan) 10 mg Q6 IV Last administered on 09/19/18 12:14; Admin Dose 10 MG; Start 09/17/18 at 00:00 Heparin Sodium (Porcine) (Heparin (5000 Units/1ml)) 5,000 unit BID SC Last administered on 09/19/18 08:45; Admin Dose 5,000 UNIT; Start 09/18/18 at 21:00 Amoxicillin/ Clavulanate Potassium (Augmentin) 875 mg BID PO Last administered on 09/19/18 08:37; Admin Dose 875 MG; Start 09/19/18 at 09:00 FREDI OCASIO MD Sep 19, 2018 12:29
[2018-09-19] MEDS: DOCUSATE SODIUM 250 MG CAP PO SCH (20:56)
[2018-09-19] MEDS: ASCORBIC ACID 500 MG TAB PO SCH (20:56)
[2018-09-19] MEDS: FERROUS SULFATE (EC) 325 MG TAB PO SCH (20:56)
[2018-09-19] MEDS: NORETHINDRONE-ETHINYL ESTR 0.5-35 TAB PO SCH (23:09)
[2018-09-20] VITALS (9 sets, daily range): BP systolic 121–139; BP diastolic 58–69; PULSE 17–88; RESP 17–18
[2018-09-20] MEDS: METOCLOPRAMIDE 10 MG INJ IV SCH ×3 (00:01→11:46)
[2018-09-20] MEDS: [UNRECOGNIZED DRUG - REMARK] XX SCH (04:27)
[2018-09-20] MEDS: SOD CHLORIDE 0.9% 1,000 ML IV SCH (05:35)
[2018-09-20] MEDS: PANTOPRAZOLE (EC) 40 MG TAB PO SCH (06:33)
--- NOTE | 2018-09-20 07:13 | CONS ---
Assessment/Plan Assessment/Plan Hospital Course (Demo Recall) 1)RML pneumonia with possible abscess the area of question for abscess is small and likely antibiotics alone will be sufficient CT chest did not suggest PE the development of possible abscess suggests aspiration respiratory cx was ordered but have asked nurse to place sputum container by her bedside and encourage daughter to collect I will also order nasal for MRSA continue with vanco/zosyn/levo at present 09/14 - sputum cx is pending but according to patient it was collected improved symptoms and WBC continue with vanco/zosyn/levaquin at present but will re-evaluate when more micro lab results are in 09/15 - sputum cx and nasal cx are neg, no further fevers and wbc is a bit improved today d/c vanco, continue with zosyn/levo at present 09/16 - WBC count is stalled but clinically she is better pt has N and vomited yesterday, not sure if it is the iron infusion or possibly the zosyn d/c zosyn and start merrem and continue thru 09/19 continue levaquin thru 09/18 if WBC not improving will need to re-image area of possible lung abscess 09/17 - improved nausea, on merrem/levaquin CXR unable to assess the potential abscess site well WBC is improved though consider chest CT w/o contrast 09/18 - R sided thorancentesis done yesterday and pt feels better pleural fluid is not infected and looks to be transudative (serum LDH was not done though) WBC remains mildly elevated and if not improved tomorrow will order chest CT last day for levaquin and if WBC is improved tomorrow will likely switch merrem to augmentin 09/19 - improved WBC, d/c merrem and start augmentin and continue for 7 days if pt continues to improve then get repeat CT chest in 2-3 months 09/20 - no significant change in WBC continue with augmentin for 6 more days repeat chest CT as outpt 2)MS 3) hx of DVT 4) Fe deficiency anemia now on IV iron 09/14 - pt pelvic u/s showed fibroids but pt denies vaginal bleeding except during her menstrual cycle for 3-4 days 09/15- decrease in Hgb is noted 09/16 - improvement in Hgb this a.m. pt has N and occasionally vomiting, may be related to the iron 09/17 - stable Hgb 09/20 - further improvement in Hgb Consultation Date/Type/Reason Admit Date/Time Sep 12, 2018 at 06:02 Initial Consult Date 09/13/18 Type of Consult ID Requesting Provider: CLEO FARRIS MD Date/Time of Note DATE: 09/20/18 TIME: 07:11 24 HR Interval Summary Free Text/Dictation stable no N, V minimal cough on RA Exam/Review of Systems Exam Vitals Vital Signs Date Temp Pulse Resp B/P (MAP) Pulse Ox O2 O2 Flow FiO2 Time Delivery Rate 09/20/18 98.4 81 17 124/69 97 04:08 (87) 09/18/18 Room Air 15:19 09/18/18 2.0 09:20 Intake and Output 09/19/18 09/19/18 09/20/18 1515:00 23:00 07:00 IntakeIntake Total 300 ml 800 ml 1500 ml BalanceBalance 300 ml 800 ml 1500 ml Constitutional: alert, oriented ENMT: mucosa pink and moist Respiratory: clear to auscultation Cardiovascular: regular rate and rhythm Gastrointestinal: soft, non-tender Results Result Diagram: 09/20/18 0516 09/19/18 0520 Results 24hrs Laboratory Tests Test 09/20/18 05:16 White Blood Count 12.7 H Red Blood Count 4.03 L Hemoglobin 9.6 L Hematocrit 32.1 L Mean Corpuscular Volume 79.7 L Mean Corpuscular Hemoglobin 23.8 L Mean Corpuscular Hemoglobin Concent 29.9 L Red Cell Distribution Width 27.9 H Platelet Count 639 H Mean Platelet Volume 10.3 Immature Granulocytes % 1.500 H Neutrophils % 77.9 H Lymphocytes % 12.0 L Monocytes % 5.7 Eosinophils % 2.4 Basophils % 0.5 Nucleated Red Blood Cells % 0.2 H Immature Granulocytes # 0.190 H Neutrophils # 9.9 H Lymphocytes # 1.5 Monocytes # 0.7 Eosinophils # 0.3 Basophils # 0.1 Nucleated Red Blood Cells # 0.0 Medications Medication Current Medications IV Flush (NS 3 ml) 3 ml PER PROTOCOL IV ; Start 09/12/18 at 07:00 Ondansetron HCl (Zofran Inj) 4 mg Q6H PRN IV NAUSEA/VOMITING Last administered on 09/16/18at 19:01; Admin Dose 4 MG; Start 09/12/18 at 07:00 Acetaminophen (Tylenol Tab) 650 mg Q6H PRN PO .PAIN 1-3 OR TEMP; Start 09/12/18 at 07:00 Acetaminophen/ Hydrocodone Bitart ([place] (5/325)) 1 tab Q6H PRN PO .PAIN 4-6; Start 09/12/18 at 07:00 Albuterol/ Ipratropium (Duoneb) 3 ml Q2H RESP THERAPY PRN HHN SHORTNESS OF BREATH; Start 09/12/18 at 07:00 Clonazepam (Klonopin) 1 mg BID PRN PO ANXIETY; Start 09/12/18 at 07:00 Pantoprazole (Protonix Tab) 40 mg AC BREAKFAST PO Last administered on 09/20/18at 06:33; Admin Dose 40 MG; Start 09/12/18 at 07:00 Sodium Chloride 1,000 ml @ 100 mls/hr Q10H IV Last administered on 09/20/18 05:35; Admin Dose 100 MLS/HR; Start 09/12/18 at 07:30 Ibuprofen (Motrin) 400 mg Q6H PRN PO MILD PAIN(1-3) OR TEMP>38C Last ad ministered on 09/17/18 21:04; Admin Dose 400 MG; Start 09/12/18 at 11:00 Tramadol HCl (Ultram) 50 mg Q6H PRN PO MODERATE PAIN LEVEL 4-6; Start 09/12/18 at 11:00 Miscellaneous Information 240 mg BID PO ; Start 09/12/18 at 17:30; Status UNV Miscellaneous Information (*Order Clarification Bulletin) MEDICATION REQUIRES CLARIFICATION:TE... Q8H XX Last administered on 09/18/18 04:30; Admin Dose 1 EA; Start 09/14/18 at 12:30 Docusate Sodium (Colace) 250 mg HS PO Last administered on 09/17/18 21:04; Admin Dose 250 MG; Start 09/14/18 at 21:00 Medroxyprogesterone Acetate (Provera) 10 mg DAILY PO Last administered on 09/19/18 08:37; Admin Dose 10 MG; Start 09/15/18 at 13:00; Stop 09/20/18 at 12:59 Ascorbic Acid (Vitamin C) 500 mg QHS PO Last administered on 09/19/18 20:56; Admin Dose 500 MG; Start 09/15/18 at 21:00 Ferrous Sulfate (Ferrous Sulfate (Ec)) 325 mg QHS PO Last administered on 20:56; Admin Dose 325 MG; Start 09/15/18 at 21:00 Ethinyl Estradiol/ Norethindrone (Nortrel 0.5-35-28 Tablet) 1 each QHS PO Last administered on 09/19/18 23:09; Admin Dose 1 EACH; Start 09/15/18 at 21:00 Metoclopramide HCl (Reglan) 10 mg Q6 IV Last administered on 09/20/18 06:33; Admin Dose 10 MG; Start 09/17/18 at 00:00 Heparin Sodium (Porcine) (Heparin (5000 Units/1ml)) 5,000 unit BID SC Last administered on 09/19/18 21:04; Admin Dose 5,000 UNIT; Start 09/18/18 at 21:00 Amoxicillin/ Clavulanate Potassium (Augmentin) 875 mg BID PO Last administered on 09/19/18 20:55; Admin Dose 875 MG; Start 09/19/18 at 09:00 RUPA RASHEED MD Sep 20, 2018 07:13
--- NOTE | 2018-09-20 08:14 | PN ---
DATE: 09/20/2018 SUBJECTIVE: The patient states she is feeling well. Has no complaints of abdominal pain, not compla ining of chest pain. No cough. OBJECTIVE: GENERAL: The patient is a well-developed, well-nourished female in no acute distress. VITAL SIGNS: Temperature 98.5 orally, pulse 85 per minute and regular, respirations 18, blood pressu re 121/58, pulse oximetry 93% on room air. SKIN: Pale. No ecchymosis, no petechiae or rashes. HEENT: Normocephalic. No evidence of trauma. Pupils equal, round, reactive to light and accommodat ion. Sclerae nonicteric. Oral mucosa is moist without lesions. Tongue is well papillated. There is no gingival hyperplasia. Oral mucosa and conjunctivae are pale. NECK: Supple, no jugular venous distention or thyroid enlargement. CHEST: Clear to auscultation and percussion. No rhonchi, wheezes, rales or rubs. There is some sli ght decreased breath sounds on the right side, but no rubs are heard. HEART: Regular sinus rhythm, no S3, S4 or murmurs. ABDOMEN: Soft, no masses or ascites. No rebound tenderness. EXTREMITIES: No clubbing. No edema or cyanosis. No palpable cords or Homans sign. NEUROLOGIC: Normal. LABORATORY DATA: White count 12,700 with absolute neutrophil count of 9900, hemoglobin 9.6, hematocr it 72.1, MCV 79.7 and platelet count 639,000. Sodium 137, potassium 3.9, creatinine 1.02 and BUN 15. ASSESSMENT: 1. Iron deficiency anemia due to menorrhagia and anticoagulation. 2. Multiple sclerosis. 3. History of deep vein thrombosis. 4. Right middle lobe infiltration. DISCUSSION: The patient's hemoglobin is improving. The thoracentesis did have findings consistent w ith a transudate. Cytology of thoracentesis fluid did not reveal any malignancy. The patient is now off IV antibiotics. Hemoglobin seems to be increasing. Will check retic count do ne from today's sample. The patient will require several more days of oral antibiotics and I feel should also be continued on oral iron replacement upon discharge. Dictated By: DONAVON ANGULO MD SR/EDWIN Conf#: [id number] DID#: [id number] CC: HANNAH HAWKINS MD; CLEO FARRIS MD; FREDI OCASIO MD;*EndCC*
[2018-09-20] MEDS: AMOXICILLIN/CLAV 875 MG TAB PO SCH (09:57)
[2018-09-20] MEDS: MEDROXYPROGESTERONE 10 MG TAB PO SCH (09:57)
[2018-09-20] MEDS: HEPARIN 5,000 UNIT/1 ML VIAL SC SCH (10:08)
--- NOTE | 2018-09-20 11:37 | CONS ---
Consult Date/Type/Reason Admit Date/Time Sep 12, 2018 at 06:02 Initial Consult Date 09/13/18 Type of Consult Pulmonary Requesting Provider: CLEO FARRIS MD Date/Time of Note DATE: 09/20/18 TIME: 11:36 Subjective Patient comfortable this morning no respiratory distress. Chest x-ray shows ongoing small right infiltrate to with possible pulmonary edema. Objective Vital Signs Date Temp Pulse Resp B/P (MAP) Pulse Ox O2 O2 Flow FiO2 Time Delivery Rate 09/20/18 88 08:00 09/20/18 98.5 18 121/58 93 07:41 (79) 09/18/18 Room Air 15:19 09/18/18 2.0 09:20 Intake and Output 09/19/18 09/19/18 09/20/18 1515:00 23:00 07:00 IntakeIntake Total 300 ml 800 ml 1500 ml BalanceBalance 300 ml 800 ml 1500 ml Exam GENERAL: VITAL SIGNS: per chart well-nourished well-developed lady comfortable at rest no acute distress NECK: Supple. No JVD or lymphadenopathy. CARDIAC EXAM: S1, S2. No added sounds or murmurs. CHEST: clear bilaterally, No added sounds, rales or wheezes ABDOMEN: Soft, nontender. No guarding or rebound. EXTREMITIES: No cyanosis, clubbing or edema. NEUROLOGIC: Generalized weakness. No focal deficits. Results/Medications Result Diagram: 09/20/18 0516 09/19/18 0520 Results 24 hrs Laboratory Tests Test 09/20/18 05:16 White Blood Count 12.7 H Red Blood Count 4.03 L Hemoglobin 9.6 L Hematocrit 32.1 L Mean Corpuscular Volume 79.7 L Mean Corpuscular Hemoglobin 23.8 L Mean Corpuscular Hemoglobin Concent 29.9 L Red Cell Distribution Width 27.9 H Platelet Count 639 H Mean Platelet Volume 10.3 Immature Granulocytes % 1.500 H Neutrophils % 77.9 H Lymphocytes % 12.0 L Monocytes % 5.7 Eosinophils % 2.4 Basophils % 0.5 Nucleated Red Blood Cells % 0.2 H Immature Granulocytes # 0.190 H Neutrophils # 9.9 H Lymphocytes # 1.5 Monocytes # 0.7 Eosinophils # 0.3 Basophils # 0.1 Nucleated Red Blood Cells # 0.0 Absolute Reticulocyte Count 0.121 H Percent Reticulocyte Count 3.0 H Medications Current Medications IV Flush (NS 3 ml) 3 ml PER PROTOCOL IV ; Start 09/12/18 at 07:00 Ondansetron HCl (Zofran Inj) 4 mg Q6H PRN IV NAUSEA/VOMITING Last administered on 09/16/18 19:01; Admin Dose 4 MG; Start 09/12/18 at 07:00 Acetaminophen (Tylenol Tab) 650 mg Q6H PRN PO .PAIN 1-3 OR TEMP; Start 09/12/18 at 07:00 Acetaminophen/ Hydrocodone Bitart ([place] (5/325)) 1 tab Q6H PRN PO .PAIN 4-6; Start 09/12/18 at 07:00 Albuterol/ Ipratropium (Duoneb) 3 ml Q2H RESP THERAPY PRN HHN SHORTNESS OF BREATH; Start 09/12/18 at 07:00 Clonazepam (Klonopin) 1 mg BID PRN PO ANXIETY; Start 09/12/18 at 07:00 Pantoprazole (Protonix Tab) 40 mg AC BREAKFAST PO Last administered on 09/20/18 06:33; Admin Dose 40 MG; Start 09/12/18 at 07:00 Sodium Chloride 1,000 ml @ 100 mls/hr Q10H IV Last administered on 09/20/18 05:35; Admin Dose 100 MLS/HR; Start 09/12/18 at 07:30 Ibuprofen (Motrin) 400 mg Q6H PRN PO MILD PAIN(1-3) OR TEMP>38C Last administered on 09/17/18 21:04; Admin Dose 400 MG; Start 09/12/18 at 11:00 Tramadol HCl (Ultram) 50 mg Q6H PRN PO MODERATE PAIN LEVEL 4-6; Start 09/12/18 at 11:00 Miscellaneous Information 240 mg BID PO ; Start 09/12/18 at 17:30; Status UNV Miscellaneous Information (*Order Clarification Bulletin) MEDICATION REQUIRES CLARIFICATION:TE... Q8H XX Last administered on 09/18/18 04:30; Admin Dose 1 EA; Start 09/14/18 at 12:30 Docusate Sodium (Colace) 250 mg HS PO Last administered on 09/17/18 21:04; Admin Dose 250 MG; Start 09/14/18 at 21:00 Medroxyprogesterone Acetate (Provera) 10 mg DAILY PO Last administered on 09:57; Admin Dose 10 MG; Start 09/15/18 at 13:00; Stop 09/20/18 at 12:59 Ascorbic Acid (Vitamin C) 500 mg QHS PO Last administered on 09/19/18 20:56; Admin Dose 500 MG; Start 09/15/18 at 21:00 Ferrous Sulfate (Ferrous Sulfate (Ec)) 325 mg QHS PO Last administered on 09/19/18 20:56; Admin Dose 325 MG; Start 09/15/18 at 21:00 Ethinyl Estradiol/ Norethindrone (Nortrel 0.5-35-28 Tablet) 1 each QHS PO Last administered on 09/19/18 23:09; Admin Dose 1 EACH; Start 09/15/18 at 21:00 Metoclopramide HCl (Reglan) 10 mg Q6 IV Last administered on 09/20/18 06:33; Admin Dose 10 MG; Start 09/17/18 at 00:00 Heparin Sodium (Porcine) (Heparin (5000 Units/1ml)) 5,000 unit BID SC Last administered on 09/20/18 10:08; Admin Dose 5,000 UNIT; Start 09/18/18 at 21:00 Amoxicillin/ Clavulanate Potassium (Augmentin) 875 mg BID PO Last administered on 09/20/18 09:57; Admin Dose 875 MG; Start 09/19/18 at 09:00 Assessment/Plan Hospital Course (Demo Recall) Assessment 1. History of menorrhagia and iron deficiency anemia 2. History of thromboembolic disease on anticoagulation 3. Progressive right effusion on chest x-ray today. 4. Iron deficiency anemia 5. Hx MS. Plan 1. Continue antibiotics, agree with ID recs. 2. Iron replacement 3. Encourage out of bed 4. s/p Thoracentesis negative for malignancy 5. Would hold off on further thoracentesis at this point. Consider DC planning soon. CECELIA BALL MD, [facility] Sep 20, 2018 11:36
[2018-09-20] MEDS ORDERED: AMOX1TAB10 PO (14:56)
[2018-09-20] MEDS ORDERED: FER325 PO (14:56)
--- NOTE | 2018-09-20 15:05 | DS ---
Date/Time of Note Date/Time of Note DATE: 09/20/18 TIME: 14:57 Discharge Summary Admission/Discharge Info Admit Date/Time Sep 12, 2018 at 06:02 Discharge Date/Time Discharge Diagnosis 1. Right middle lobe pneumonia, stable, continue augmentin for 6 days 2. Right pleural effusion, s/p thoracentesis with removal of 900 cc fluid, stable 3. Anemia due to iron deficiency, on iron supplement 4. Abnormal vaginal bleeding, stopped 5. Uterine fibroid, follow up with [employer]IENT [employer]ATOR 6. History of deep vein thrombosis.. 7. Multiple sclerosis with functional quadriplegia, chronic, supportive care Patient Condition: Stable Hospital Course This is a 53-year-old female with a history of multiple sclerosis, left lower extremity DVT, gastritis, iron deficiency anemia who presented to ER complaining of right-sided abdominal and right-sided chest pain of a few days duration. P ain is described as sharp. Reported nausea. Denied fever/chills. When presented to ER, she was slightly tachycardic otherwise vitals stable. Lab shows a WBC of 20,000, hemoglobin 7.1. Abdominal ultrasound shows cholelithiasis, CT abdomen pelvis and Chest CT shows the followin. Large rounded area of heterogeneous consolidation medially in the right middle lobe with slightly enlarged right hilar node and small right pleural effusion. This may represent an area of rounded configuration pneumonia, postobstructive change, or possibly a mass. Follow up imaging after treatment to document resolution is suggested. 2. No definite pulmonary embolus. No aortic dissection or aneurysm. Study limited by poor contrast bolus and breathing motion artifact.3. There is an oval 2 cm structure medially in the left breast which most likely represents a cyst. Correlation with mammography is suggested, however. For right middle lobe pneumonia, sputum cx and nasal cx are neg, Antibiotics are managed by ID, patient clinically improving with afebrile and improving leukocytosis. Patient will be on 6 more days augmentin and follow up with PCP and pulmonology for further treatment. Patient got right thoracentesis with removal of 900 cc fluid on 09/17/2018. Fluid culture is negative, negative for AFB, and negative for malignancy. Patient had vaginal bleeding that eliquis was held. Bleeding stopped, i will resume eliquis with the concern of hypercoagulable state. Home Meds Active Scripts Ferrous Sulfate* (Ferrous Sulfate*) 325 Mg Tabec, 325 MG PO QHS for 30 Days, TAB Prov:FREDI OCASIO MD 09/20/18 Amoxicillin/Potassium Clav (Amox-Clav 875-125 mg Tablet) 875-125 mg Tab, 875 MG PO BID for 6 Days, TAB Prov:FREDI OCASIO MD 09/20/18 Reported Medications Ibuprofen* (Ibuprofen*) 600 Mg Tablet, 600 MG PO NEEDED PRN for PAIN, TAB 09/11/18 Pantoprazole* (Pantoprazole*) 40 Mg Tablet.dr, 40 MG PO AC BREAKFAST, TAB 09/11/18 Dimethyl Fumarate (Tecfidera) 240 Mg Capsule.dr, 240 MG PO BID, CAP 09/11/18 Clonazepam* (Clonazepam*) 1 Mg Tablet, 1 MG PO BID PRN for ANXIETY, TAB 09/11/18 Apixaban* (Eliquis*) 2.5 Mg Tablet, 2.5 MG PO BID, TAB 09/11/18 Follow-up Plan PCP and pulmonology in one week Primary Care Provider Christel Pepper Pending Labs Laboratory Tests Test 09/20/18 05:16 White Blood Count 12.7 10^3/ul (4.8-10.8) Red Blood Count 4.03 10^6/ul (4.20-5.40) Hemoglobin 9.6 g/dl (12.0-16.0) Hematocrit 32.1 % (37.0-47.0) Mean Corpuscular Volume 79.7 fl (82.0-101.0) Mean Corpuscular Hemoglobin 23.8 pg (29.0-33.0) Mean Corpuscular Hemoglobin Concent 29.9 g/dl (32.0-37.0) Red Cell Distribution Width 27.9 % (11.5-14.5) Platelet Count 639 10^3/UL (140-415) Mean Platelet Volume 10.3 fl (7.4-10.4) Immature Granulocytes % 1.500 % (0.001-0.429) Neutrophils % 77.9 % (39.0-77.0) Lymphocytes % 12.0 % (15.0-51.0) Monocytes % 5.7 % (0.0-11.0) Eosinophils % 2.4 % (0.0-7.0) Basophils % 0.5 % (0.0-2.0) Nucleated Red Blood Cells % 0.2 /100WBC (0.0-0.0) Immature Granulocytes # 0.190 10^3/ul (0.0-0.031) Neutrophils # 9.9 10^3/ul (1.6-7.5) Lymphocytes # 1.5 10^3/ul (0.8-2.9) Monocytes # 0.7 10^3/ul (0.3-0.9) Eosinophils # 0.3 10^3/ul (0.0-0.5) Basophils # 0.1 10^3/ul (0.0-0.1) Nucleated Red Blood Cells # 0.0 10^3/ul (0.0-0.0) Absolute Reticulocyte Count 0.121 X10^6 (0.020-0.110) Percent Reticulocyte Count 3.0 % (0.5-1.5) FREDI OCASIO MD Sep 20, 2018 15:05
== END 2018-09-20 17:33 | disposition home or self-care (01) | DRG 193 ==
LOC: E/R 21:48 → 6WM 09-12 06:02 → CANRESERV 09-12 14:11 → E/R 09-12 17:29
PROVIDERS: ADMIT Internal Medicine; ATTEND Internal Medicine
PROC: 30233N1 Transfusion of Nonautologous Red Blood Cells into Peripheral Vein, Percutaneous Approach (ICD-10-PCS; 2018-09-13)
PROC: 0W993ZX Drainage of Right Pleural Cavity, Percutaneous Approach, Diagnostic (ICD-10-PCS; principal; 2018-09-17)
DX: J18.9 Pneumonia, unspecified organism (principal); R53.2 Functional quadriplegia; J90 Pleural effusion, not elsewhere classified; N92.0 Excessive and frequent menstruation with regular cycle; G35 Multiple sclerosis; D25.9 Leiomyoma of uterus, unspecified; K80.20 Calculus of gallbladder without cholecystitis without obstruction; D50.0 Iron deficiency anemia secondary to blood loss (chronic); K29.70 Gastritis, unspecified, without bleeding; Z74.01 Bed confinement status; Z79.01 Long term (current) use of anticoagulants; Z86.718 Personal history of other venous thrombosis and embolism
CPT/HCPCS: 36415; 36430; 71045; 71275; 74177; 76642; 76705; 76856; 76942; 80048; 80053; 80202; 81001; 82270; 82378; 82550; 82553; 82728; 82945; 83540; 83605; 83615; 83690; 84145; 84157; 84484; 84703; 85025; 85045; 85378; 85610; 86304; 86305; 86850; 86900; 86901; 86920; 87070; 87081; 87086; 87102; 87116; 87400; 88104; 88305; 89051; 93005; 96365; 96366; 96368; 96375; A4310; J0692; J1644; J1885; J1956; J2185; J2270; J2405; J2543; J2765; J2916; J3370; J7030; J7040; J7050; P9016; Q9967

== ENCOUNTER 2019-03-06 18:48 | Inpatient (IN) | payer OTHER ==
[~2019-03-06] VITALS: Ht 154.9 cm; Wt 74.5 kg
[~2019-03-06 18:48] MED LIST changes: +AMOX1TAB10 PO; +FER325 PO; +IBUP-1542 PO; +INTE30PE3 IM; +MEDR10TA9 PO; +PANT40TA4 PO
[2019-03-06 19:17] VITALS: Ht 154.9 cm; Wt 74.5 kg
[2019-03-06] MEDS ORDERED: SODIUM CHLORIDE 0.9% 1L BAG IV* STA (19:21)
[2019-03-06] MEDS ORDERED: CEFTRIAXONE 1 GM/50 ML (PMX) 50 ML IVPB STA (19:21)
[2019-03-06] MEDS ORDERED: ACETAMINOPHEN 325 MG TAB PO PRN (21:00)
[2019-03-06] MEDS ORDERED: DOXYCYCLINE 100 MG in SOD CHLORIDE 0.9% 250 ML IVPB SCH (21:00)
[2019-03-06] MEDS ORDERED: PIPER-TAZO 3.375 GM IV (PMX) 100 ML IVPB ONE (21:00)
[2019-03-06] MEDS ORDERED: ONDANSETRON 4 MG INJ IV PRN ×2 (21:00→21:30)
[2019-03-06] MEDS ORDERED: ACETAMINOPHEN 500 MG TAB PO PRN (21:30)
[2019-03-06] MEDS ORDERED: KETOROLAC 30 MG INJ IV PRN (21:30)
[2019-03-06] MEDS: 1/2 NS + KCL 20 MEQ 1,000 ML IV SCH (22:12)
[2019-03-07] MEDS ORDERED: PIPER-TAZO 3.375 GM IV (PMX) 100 ML IVPB SCH
[2019-03-07] MEDS: PIPER-TAZO 3.375 GM IV (PMX) 100 ML IVPB SCH ×4 (02:34→17:54)
[2019-03-07] MEDS: DOXYCYCLINE 100 MG in SOD CHLORIDE 0.9% 250 ML IVPB SCH ×2 (08:58→23:45)
[2019-03-07] MEDS: FAMOTIDINE 20 MG TAB PO SCH ×2 (09:00→22:54)
[2019-03-07] MEDS: 1/2 NS + KCL 20 MEQ 1,000 ML IV SCH ×2 (10:19→23:45)
[2019-03-07 21:45] VITALS: BP 150/71; PULSE 86; RESP 18
[2019-03-07] MEDS ORDERED: IBUPROFEN 600 MG TAB PO PRN (22:00)
[2019-03-07] MEDS ORDERED: clonAZEPAM 0.5 MG TAB PO PRN (22:00)
[2019-03-07] MEDS: HYDROCODONE/APAP (5/325) TAB PO PRN (22:54)
[2019-03-08] MEDS: PIPER-TAZO 3.375 GM IV (PMX) 100 ML IVPB SCH ×4 (01:30→17:29)
[2019-03-08 02:00] VITALS: BP 109/53; PULSE 71; RESP 17
[2019-03-08] MEDS: PANTOPRAZOLE (EC) 40 MG TAB PO SCH ×2 (05:48→17:29)
[2019-03-08] MEDS ORDERED: PANTOPRAZOLE (EC) 40 MG TAB PO SCH (07:30)
[2019-03-08 08:13] VITALS: BP 138/78; PULSE 71; RESP 16
[2019-03-08] MEDS: FAMOTIDINE 20 MG TAB PO SCH (08:21)
[2019-03-08] MEDS: MEDROXYPROGESTERONE 10 MG TAB PO SCH (08:21)
[2019-03-08] MEDS: DOXYCYCLINE 100 MG in SOD CHLORIDE 0.9% 250 ML IVPB SCH (08:24)
[2019-03-08] MEDS: APIXABAN 5 MG TABLET PO SCH (08:27)
[2019-03-08 14:17] VITALS: BP 117/59; PULSE 97; RESP 18
[2019-03-08] MEDS: 1/2 NS + KCL 20 MEQ 1,000 ML IV SCH ×2 (15:09→20:56)
[2019-03-08] MEDS: HYDROCODONE/APAP (5/325) TAB PO PRN (15:34)
[2019-03-08] MEDS ORDERED: VANCOMYCIN IV PER PHARMACY XX SCH (18:30)
[2019-03-08] MEDS ORDERED: VANCOMYCIN 1.5 GM/NS 250 ML 250 ML IVPB SCH (20:00)
[2019-03-08 20:49] VITALS: BP 124/63; PULSE 85; RESP 20
[2019-03-08] MEDS: DOXYCYCLINE 100 MG TAB PO SCH (20:50)
[2019-03-08] MEDS: DICYCLOMINE 10 MG CAP PO SCH (20:50)
[2019-03-08] MEDS: FERROUS SULFATE (EC) 325 MG TAB PO SCH (20:50)
[2019-03-09] MEDS: PIPER-TAZO 3.375 GM IV (PMX) 100 ML IVPB SCH ×4 (00:41→17:38)
[2019-03-09 02:18] VITALS: BP 122/59; PULSE 88
[2019-03-09] MEDS: PANTOPRAZOLE (EC) 40 MG TAB PO SCH ×2 (06:22→17:38)
[2019-03-09 07:53] VITALS: BP 146/70; PULSE 69; RESP 16
[2019-03-09] MEDS ORDERED: VANCOMYCIN 1 GM 250 ML IVPB SCH (09:00)
[2019-03-09] MEDS: APIXABAN 5 MG TABLET PO SCH (09:04)
[2019-03-09] MEDS: DOXYCYCLINE 100 MG TAB PO SCH ×2 (09:04→21:05)
[2019-03-09] MEDS: DICYCLOMINE 10 MG CAP PO SCH ×2 (09:05→21:06)
[2019-03-09] MEDS: MEDROXYPROGESTERONE 10 MG TAB PO SCH (09:05)
[2019-03-09 14:59] VITALS: BP 120/61; PULSE 96; RESP 16
[2019-03-09] MEDS: 1/2 NS + KCL 20 MEQ 1,000 ML IV SCH ×2 (16:10→21:11)
[2019-03-09 20:29] VITALS: BP 130/64; PULSE 87; RESP 18
[2019-03-09] MEDS: FERROUS SULFATE (EC) 325 MG TAB PO SCH (21:06)
[2019-03-09] MEDS: CEFTRIAXONE 1 GM/50 ML (PMX) 50 ML IVPB SCH (21:08)
[2019-03-10 02:44] VITALS: BP 111/53; PULSE 86; RESP 18
[2019-03-10] MEDS: PANTOPRAZOLE (EC) 40 MG TAB PO SCH ×2 (06:00→17:29)
[2019-03-10 07:59] VITALS: BP 109/53; PULSE 81; RESP 18
[2019-03-10] MEDS: MEDROXYPROGESTERONE 10 MG TAB PO SCH (08:50)
[2019-03-10] MEDS: DOXYCYCLINE 100 MG TAB PO SCH ×2 (08:50→20:55)
[2019-03-10] MEDS: APIXABAN 5 MG TABLET PO SCH (08:51)
[2019-03-10] MEDS: DICYCLOMINE 10 MG CAP PO SCH ×2 (08:51→20:56)
[2019-03-10 14:00] VITALS: BP 114/57; PULSE 85; RESP 18
[2019-03-10 20:33] VITALS: BP 118/63; PULSE 94; RESP 16
[2019-03-10] MEDS: FERROUS SULFATE (EC) 325 MG TAB PO SCH (20:55)
[2019-03-10] MEDS: CEFTRIAXONE 1 GM/50 ML (PMX) 50 ML IVPB SCH (20:56)
[2019-03-11 02:18] VITALS: BP 107/55; PULSE 83; RESP 20
[2019-03-11] MEDS: PANTOPRAZOLE (EC) 40 MG TAB PO SCH ×2 (05:40→17:10)
[2019-03-11 07:53] VITALS: BP 118/56; PULSE 97; RESP 18
[2019-03-11] MEDS: DICYCLOMINE 10 MG CAP PO SCH (08:14)
[2019-03-11] MEDS: APIXABAN 5 MG TABLET PO SCH (08:14)
[2019-03-11] MEDS: DOXYCYCLINE 100 MG TAB PO SCH (08:14)
[2019-03-11] MEDS: MEDROXYPROGESTERONE 10 MG TAB PO SCH (08:14)
[2019-03-11] MEDS ORDERED: SOD FERRIC GLUC COMPLX 125 MG in SOD CHLORIDE 0.9% 100 ML IVPB SCH (13:00)
[2019-03-11 14:00] VITALS: BP 116/56; PULSE 90; RESP 18
== END 2019-03-11 20:24 | disposition home or self-care (01) | DRG 872 ==
LOC: E/R 18:48 → PP2 20:47 → EDBEDREQ 22:05 → UNDOADMIN 03-07 20:58 → PP2 03-07 20:58
PROVIDERS: ADMIT Internal Medicine; ATTEND Internal Medicine
DX: A41.9 Sepsis, unspecified organism (principal); N39.0 Urinary tract infection, site not specified; G35 Multiple sclerosis; D25.9 Leiomyoma of uterus, unspecified; N92.0 Excessive and frequent menstruation with regular cycle; D64.9 Anemia, unspecified; R10.2 Pelvic and perineal pain; K80.20 Calculus of gallbladder without cholecystitis without obstruction; Z79.01 Long term (current) use of anticoagulants
CPT/HCPCS: 36415; 71045; 74176; 76856; 80048; 80053; 81001; 82270; 82607; 82728; 82746; 83540; 83605; 84484; 84703; 85025; 85045; 85610; 85730; 87086; 87110; 87591; 93005; 96374; J0696; J1885; J2543; J2916; J3370; J3480; J7030; J7050